=== PATIENT | male | born 1970 | race Caucasian/White ===

== ENCOUNTER 2016-07-21 06:08 | Day surgery (SDC) | payer BC ==
[2016-07-18 15:10] VITALS: BMI 35.5
[2016-07-21] MEDS ORDERED: SODIUM CHLORIDE 0.9% 500 ML IV ONE (06:22)
[2016-07-21 06:29] VITALS: RESP 16; TEMP 98.4
[2016-07-21] MEDS ORDERED: MIDAZOLAM 2 MG/2 ML VIAL ONE ×2 (07:03→07:48)
[2016-07-21] MEDS ORDERED: fentaNYL (PF) 50 MCG/ML 2 ML AMP ONE (07:03)
[2016-07-21] MEDS: BENZOCAINE SPRAY 100 APPLIC/CAN MUCOUS MEM ONE ×2 (07:42→07:43)
[2016-07-21] MEDS: fentaNYL (PF) 50 MCG/ML 2 ML AMP IV ONE ×2 (07:42→07:45)
[2016-07-21] MEDS ORDERED: MIDAZOLAM 2 MG/2 ML VIAL IV ONE ×2 (07:42→07:50)
[2016-07-21] MEDS: MIDAZOLAM 2 MG/2 ML VIAL IV ONE ×2 (07:44→07:46)
[2016-07-21] MEDS ORDERED: HEPARIN SODIUM 1,000 UNIT/ML VIAL ONE (07:50)
[2016-07-21] MEDS ORDERED: PROPOFOL 10 MG/ML 20 ML VIAL IV ONE (08:01)
--- NOTE | 2016-07-21 08:49 | ECHOT ---
DATE OF SERVICE: 07/21/2016 PERFORMING PHYSICIAN: Eric Mullins MD, accounting administrator. PROCEDURE PERFORMED: Transesophageal echocardiogram. INDICATION: This is a pleasant 45-year-old gentleman who underwent an echocardiogram in the office which showed bicuspid aortic valve with evidence of moderate aortic insufficiency. The transesophageal echocardiogram is for further clarification. SEDATION: Initially we tried conscious sedation using 5 mg of Versed and 75 mcg of fentanyl, but the patient did not respond so we had to call anesthesia and do deep sedation using propofol. COMPLICATIONS: None. LEVEL OF SEDATION: Moderate. PROCEDURE DESCRIPTION: After obtaining an informed consent, the patient was brought to the transesophageal echocardiogram suite. He was turned into left lateral position. Pulse oximetry and heart rate monitors were attached to the patient. Subsequently, we tried sedating the patient using conscious sedation with Versed as described above but he did not respond well. At that point, we decided to call Anesthesia and do deep sedation. In this case, the patient was given propofol and sedated using propofol. Subsequently, I did advance the transesophageal echocardiogram probe through to the mid esophagus where 2-D echocardiogram images as well as color Doppler images of various cardiac structures were obtained. Particular attention was made to be aortic valve. The procedure was completed without any completion. FINDINGS: The left ventricular dimension and systolic function appeared to be within normal limits. The ejection fraction seems to be in the range of 50% to 55% with a normal wall motion. The right ventricle is of normal size and function. The left atrium appeared to be within normal limits of dimension. The left atrial appendage appeared to be free from any thrombus. The interatrial septum was interrogated using color flow Doppler as well as contrast study. The septum seems to be intact without any evidence of shunt. The aortic valve is bicuspid aortic valve with evidence of ( ) of the right and left coronary cusp and evidence of severe aortic insufficiency with eccentric jet. The mitral valve seems to be structurally normal with trace MR. Normal tricuspid valve and pulmonic valve. CONCLUSION: 1. Bicuspid aortic valve with fusion of right and left coronary cusp and evidence of severe aortic insufficiency. 2. Preserved left ventricular dimension and systolic function with an ejection fraction of 60% and normal wall motion. 3. Overall normal cardiac chamber sizes. 4. Normal mitral valve with trace mitral regurgitation. 5. Normal tricuspid valve and pulmonic valve. 6. Normal left atrial appendage without any evidence of thrombus. 7. Intact interatrial septum without evidence of shunt. 8. Normal aortic root dimension. 9. No evidence of pericardial effusion.
[2016-07-21 09:35] VITALS: BP 140/66; PULSE 60
== END 2016-07-21 09:35 | disposition home or self-care (01) ==
LOC: CATHCVL 06:08
PROVIDERS: ATTEND Internal Medicine Interventional Cardiology
DX: Q23.1 Congenital insufficiency of aortic valve (principal); I34.0 Nonrheumatic mitral (valve) insufficiency; E78.1 Pure hyperglyceridemia; E78.5 Hyperlipidemia, unspecified; R07.89 Other chest pain; F17.210 Nicotine dependence, cigarettes, uncomplicated; Z79.891 Long term (current) use of opiate analgesic; Z79.899 Other long term (current) drug therapy; Z88.5 Allergy status to narcotic agent; Z88.7 Allergy status to serum and vaccine; Z82.49 Family history of ischemic heart disease and other diseases of the circulatory system
CPT/HCPCS: 93312; 93320; 93325; J2250; J3010; J2704; 99152

== ENCOUNTER → 2016-08-19 | Outpatient (CLI) | payer BC ==
--- NOTE | 2016-08-19 19:33 | MR ---
EXAMINATION TYPE: MR cervical spine wo con DATE OF EXAM: 08/19/2016 2:48 PM COMPARISON: 08/26/2014 HISTORY: 45-year-old male with cervical spondylosis, headaches, numbness/weakness upper extremities, history of surgery 2014. TECHNIQUE: Multiplanar, multisequence images of the cervical spine were acquired. FINDINGS: No craniocervical junction abnormality, predental space widening, or prevertebral soft tissue swellin g. Chronic bony deformity of the dens as compared to 08/26/2014. There is excessive metal hardware artifact at the C5-C6 level obscuring the vertebral bodies and with artifact extending into the spinal canal limiting evaluation of the cord at this level. There is roosevelt e dorsal CSF signal maintained arguing against a significant spinal canal stenosis here. However, ass essment remains markedly limited at this level. There is mild bilateral facet and uncovertebral joint at C6/C7 mildly narrowing the bilateral neurofo ramina similar to prior exam. Alignment is maintained. Scattered additional mild facet degenerative change without significant spinal canal and neural juan c inal stenosis seen. There are excessive artifacts projecting over the cord on the sagittal view limiting evaluation for c ord signal abnormality. No suspicious bone marrow replacement within the visualized segments. IMPRESSION: 1. Excessive metal hardware artifact at C5-C6 limiting assessment of the vertebral bodies, disc inter space, and spinal canal at this level. Some dorsal CSF signal is seen here arguing against a signific ant spinal canal stenosis. The cord itself is not assessed at this level. 2. Scattered mild facet arthropathy. Additional uncovertebral joint arthropathy at C6-C7 causing mild bilateral neuroforaminal stenoses, similar to prior. 3. Prominent artifacts projecting over the remainder of the cord on the sagittal series.
== END | disposition home or self-care (01) ==
LOC: RADMRIMAIN 14:18
DX: M99.71 Connective tissue and disc stenosis of intervertebral foramina of cervical region (principal); M46.92 Unspecified inflammatory spondylopathy, cervical region
CPT/HCPCS: 72141

== ENCOUNTER 2016-08-31 10:59 | Day surgery (SDC) | payer BC ==
[2016-08-28 12:01] VITALS: BMI 35.5
[~2016-08-31 10:59] MED LIST: ALPRAZolam 0.25 MG TAB PO PRN; ALPRAZolam 0.5 MG TAB PO PRN; ASPIRIN 325 MG TAB PO STA; ATORVASTATIN 80 MG TAB PO STA; NITROGLYCERIN SL TABS 0.4 MG TAB SUBLINGUAL PRN; SODIUM CHLORIDE 0.9% 1,000 ML in EMPTY BAG 1 BAG IV ONE
[2016-08-31 12:04] VITALS: RESP 18
[2016-08-31 12:08] LABS: Basophils # (A) 0.1 k/uL (0-0.2); Basophils % (A) 1 %; CH 30.1; CHCM 34.1; Eosinophils # (A) 0.3 k/uL (0-0.7); Eosinophils % (A) 3 %; HCT 44.5 % (39.0-53.0); HDW 2.56; HGB 14.7 gm/dL (13.0-17.5); Luc % (Auto) 2; Lymphocytes % (A) 19 %; MCH 29.1 pg (25.0-35.0); MCV 88.4 fL (80.0-100.0); Mean Platelet Volume 8.2; Monocytes # (A) 0.5 k/uL (0-1.0); Monocytes % (A) 5 %; Neutrophils # (A) 7.1 k/uL (1.3-7.7); Neutrophils % (A) 70 %; RBC 5.04 m/uL (4.30-5.90); RDW 13.7 % (11.5-15.5); WBC 10.1 k/uL (3.8-10.6); WBC (Perox) 10.25
[2016-08-31] MEDS ORDERED: LIDOCAINE 2% INJ 20 MG/ML (20 ML MDV) ONE (12:14)
[2016-08-31] MEDS ORDERED: SODIUM CHLORIDE 0.9% (PF) 10 ML VIAL ONE (12:14)
[2016-08-31] MEDS ORDERED: VERAPAMIL 2.5 MG/ML 2 ML AMP ONE (12:14)
[2016-08-31] MEDS ORDERED: HEPARIN SODIUM 1,000 UNIT/ML VIAL ONE (12:14)
[2016-08-31] MEDS ORDERED: MIDAZOLAM 2 MG/2 ML VIAL ONE (12:15)
[2016-08-31 12:17] LABS: Anion Gap 11 mmol/L; Blood Urea Nitrogen 16 mg/dL (9-20); Calcium 9.5 mg/dL (8.4-10.2); Carbon Dioxide 21 mmol/L (22-30); Chloride 110 mmol/L (98-107); Glucose 116 mg/dL (74-99); Non-African American GFR(MDRD) >60 (>60 ml/min/1.73 sqM); Potassium 5.2 mmol/L (3.5-5.1); Sodium 142 mmol/L (137-145)
[2016-08-31] MEDS ORDERED: MIDAZOLAM 2 MG/2 ML VIAL IVP ONE (12:28)
[2016-08-31] MEDS ORDERED: LIDOCAINE 2% INJ 20 MG/ML SQ ONE ×2 (12:32)
[2016-08-31] MEDS ORDERED: VERAPAMIL SYRINGE (5 MG/10 ML) INTRAARTER ONE ×2 (12:33→12:43)
[2016-08-31] MEDS ORDERED: fentaNYL (PF) 50 MCG/ML 2 ML AMP ONE (12:35)
[2016-08-31] MEDS ORDERED: fentaNYL (PF) 50 MCG/ML 2 ML AMP IV ONE ×2 (12:37→12:39)
[2016-08-31] MEDS ORDERED: IOHEXOL 350 MG/ML 100 ML BOTTLE INJ ONE (12:45)
[2016-08-31] MEDS ORDERED: RX INFO: IV CONTRAST WAS GIVEN 1 EACH MISC MISCELLANE PRN (12:51)
[2016-08-31] MEDS ORDERED: SODIUM CHLORIDE 0.9% 1,000 ML IV SCH (13:00)
[2016-08-31 17:37] VITALS: BP 131/66; PULSE 56; TEMP 98.2
--- NOTE | 2016-08-31 21:35 | CC ---
DATE OF SERVICE: August 31, 2016. PERFORMING PHYSICIAN: Eric Mullins M.D., radio communications superintendent. PROCEDURES PERFORMED: 1. Selective right and left coronary angiogram. 2. Aortic root angiogram. INDICATION: This is a pleasant 46-year-old gentleman who is known to have severe aortic regurgitation, who is going to have aortic valve replacement in the next few weeks. The heart catheterization is to rule out any severe underlying coronary artery disease. APPROACH: Right radial artery. COMPLICATIONS: None. LEVEL OF SEDATION: Moderate. PROCEDURE DESCRIPTION: After obtaining an informed consent, the patient was brought to the cardiac minilab operator. His right radial artery was cannulated using micropuncture technique. The micropuncture wire passed easily, then I placed 6 [place] sheath in the right radial artery. Subsequently I gave the patient 2 mg of verapamil IA and 3000 units of heparin IV. Then I did selective right and left coronary angiogram using JR4 and JL4 catheters. Then I did aortic root angiogram using 5 [place] pigtail catheter. The procedure was completed without any complication. SELECTIVE CORONARY ANGIOGRAM: 1. The RCA is a large-caliber vessel and it is a dominant vessel. The proximal RCA has disease, appeared to be in the range of 30%. The mid RCA appeared to be angiographically normal and the RCA distally is angiographically normal and bifurcates into PDA and PLV branches. Both are angiographically normal. 2. The left main is a short left main and angiographically normal. It bifurcates into the left circumflex and left anterior descending artery. 3. Left circumflex is a large-caliber vessel and is a nondominant vessel. The proximal circ appears to have mild disease only. The mid circ appears to have mild disease only and gives rise to the large OM branch, which seems to be angiographically normal. The left circumflex distally is angiographically normal. 4. Left anterior descending artery. The proximal LAD appeared to have mild disease only. It gives rise into the first diagonal branch, which appeared to be a large-caliber vessel with disease in the proximal portion about 30% to 40%. The mid LAD appeared to be angiographically normal as well. The LAD distally is angiographically normal. 5. Aortic root angiogram: The aortic root angiogram was performed in the PATEL projection and using a power injection. There was 4+ aortic regurgitation identified. CONCLUSION: 1. Intermediate nonobstructive coronary artery disease involving the proximal right coronary artery and first diagonal branch of the left anterior descending artery. 2. 4+ aortic insufficiency. Postprocedure management: POSTPROCEDURE MANAGEMENT: Proceeding with aortic valve replacement without the need for coronary artery bypass grafting.
--- NOTE | 2016-08-31 21:37 | LTR ---
August 31, 2016 RE: Trevor Bolanos Dear Matthew: Mr. Trevor Kahn underwent a heart catheterization which showed mild nonobstructive coronary artery disease. I want to thank you for allowing me to participate in his care and please do not hesitate to call if you have any questions or concerns. Sincerely, GINO MEJIAS MD
== END 2016-08-31 17:30 | disposition home or self-care (01) ==
LOC: CATHCVL 10:59
PROVIDERS: ATTEND Internal Medicine Interventional Cardiology
DX: I25.10 Atherosclerotic heart disease of native coronary artery without angina pectoris (principal); I35.1 Nonrheumatic aortic (valve) insufficiency; E78.5 Hyperlipidemia, unspecified; E78.1 Pure hyperglyceridemia; E78.00 Pure hypercholesterolemia, unspecified; I10 Essential (primary) hypertension; Z79.891 Long term (current) use of opiate analgesic; Z79.899 Other long term (current) drug therapy; Z88.5 Allergy status to narcotic agent; Z88.7 Allergy status to serum and vaccine; F17.210 Nicotine dependence, cigarettes, uncomplicated; Z82.49 Family history of ischemic heart disease and other diseases of the circulatory system
CPT/HCPCS: 99152; 93458; 93567; 80048; 85025; C1894; C1769; J2001; J2250; Q9967; J3010; J1644

== ENCOUNTER → 2016-09-01 | Outpatient (CLI) | payer BC ==
--- NOTE | 2016-09-01 12:59 | XR ---
EXAMINATION TYPE: XR cervical spine w flex/ext DATE OF EXAM ORDERED: 09/01/2016 12:33 PM HISTORY: M47.812 Cervical spondylosis. COMPARISON: Previous study dated 07/19/2015. FINDINGS: There are disc spacers at C5-6. There is very subtle motion at this level in flexion and e xtension. Total motion in the AP direction is 5 mm. Alignment is otherwise normal. Atlantoaxial relat ionships are normal. IMPRESSION: SUBTLE MOVEMENT IN FLEXION AND EXTENSION AT THE C5-6 LEVEL.
== END | disposition home or self-care (01) ==
LOC: RADXRMAIN 12:08
DX: M47.812 Spondylosis without myelopathy or radiculopathy, cervical region (principal)
CPT/HCPCS: 72052

== ENCOUNTER → 2016-09-26 | Outpatient (CLI) | payer BC ==
[2016-09-26 09:06] LABS: EKG EKG PERFORMED
[2016-09-26 10:08] LABS: Partial Thromboplastin Time 25.6 sec (22.0-30.0); Prothrombin Time 10.1 sec (9.0-12.0)
[2016-09-26 10:23] LABS: Appearance,Urine Clear (Clear); Bilirubin,Urine Negative (Negative); Glucose,Urine (UA) Negative (Negative); Ketones,Urine Negative (Negative); Leukocyte Esterase,Urine Negative (Negative); Nitrite,Urine Negative (Negative); PH, Urine 6.5 (5.0-8.0); Protein,Urine Negative (Negative); Specific Gravity,Urine 1.018 (1.001-1.035); UA Billing (MACRO vs. MICRO) CHEM; Urobilinogen,Urine <2.0 mg/dL (<2.0)
[2016-09-26 10:25] LABS: CH 29.8; CHCM 33.6; HCT 42.4 % (39.0-53.0); HDW 2.77; HGB 14.3 gm/dL (13.0-17.5); MCH 30.1 pg (25.0-35.0); MCHC 33.7 g/dL (31.0-37.0); MCV 89.1 fL (80.0-100.0); Mean Platelet Volume 8.3; RBC 4.76 m/uL (4.30-5.90); RDW 13.8 % (11.5-15.5); WBC 8.6 k/uL (3.8-10.6)
[2016-09-26 10:48] LABS: ALT 34 U/L (21-72); AST 23 U/L (17-59); Alkaline Phosphatase 105 U/L (38-126); Anion Gap 11 mmol/L; Blood Urea Nitrogen 18 mg/dL (9-20); Calcium 9.7 mg/dL (8.4-10.2); Carbon Dioxide 25 mmol/L (22-30); Chloride 107 mmol/L (98-107); Cholesterol 226 mg/dL (<200); Glucose 101 mg/dL (74-99); HDL Cholesterol 34 mg/dL (40-60); Non-African American GFR(MDRD) >60 (>60 ml/min/1.73 sqM); Potassium 4.6 mmol/L (3.5-5.1); Sodium 143 mmol/L (137-145); Total Bilirubin 0.4 mg/dL (0.2-1.3); Total Protein 7.1 g/dL (6.3-8.2)
[2016-09-26 11:12] LABS: Hepatitis B Surface Ag Index 0.05
[2016-09-26 11:18] LABS: Hepatitis B Core IgM Index 0.04
[2016-09-26 11:29] LABS: Hepatitis C Virus IgG Index 0.01
[2016-09-26 12:08] LABS: Hepatitis C Virus IgG Ab Negative (Negative)
[2016-09-26 12:09] LABS: Triglycerides 762 mg/dL (<150)
[2016-09-26 12:18] LABS: Hemoglobin A1C 6.3 % (4.2-6.1)
--- NOTE | 2016-09-26 13:50 | XR ---
EXAMINATION TYPE: XR chest 2V DATE OF EXAM: 09/26/2016 12:56 PM COMPARISON: NONE INDICATION: Presurgical clearance TECHNIQUE: Single frontal view of the chest is obtained. FINDINGS: The heart size is normal. The pulmonary vasculature is normal. The lungs are clear. IMPRESSION: 1. No acute pulmonary process.
--- NOTE | 2016-09-26 15:40 | US ---
EXAMINATION TYPE: US carotid duplex BILAT DATE OF EXAM: 09/26/2016 11:33 AM COMPARISON: NONE CLINICAL HISTORY: OPEN HEART. EXAM MEASUREMENTS: RIGHT: Peak Systolic Velocity (PSV) cm/sec ----- Right CCA: 118.9 ----- Right ICA: 98.2 ----- Right ECA: 169.4 ICA/CCA ratio: 0.8 RIGHT: End Diastole cm/sec ----- Right CCA: 15.5 ----- Right ICA: 23.2 ----- Right ECA: 9.1 LEFT: Peak Systolic Velocity (PSV) cm/sec ----- Left CCA: 106.9 ----- Left ICA: 68.8 ----- Left ECA: 94.1 ICA/CCA ratio: 0.6 LEFT: End Diastole cm/sec ----- Left CCA: 12.4 ----- Left ICA: 18.2 ----- Left ECA: 12.8 VERTEBRALS (direction of flow): Right Vertebral: Antegrade Left Vertebral: Antegrade No significant stenosis. Elevated right prox CCA and right ECA. Elevated left prox CCA. Bilateral wall thickening. IMPRESSION: 1. I DO NOT SEE EVIDENCE OF A HEMODYNAMICALLY SIGNIFICANT STENOSIS IN EITHER COMMON OR INTERNAL CAROT ID ARTERY. 2. ELEVATED FLOW VELOCITIES, RIGHT ECA. Criteria for Assigning % of Stenosis / Diameter reduction (Estimation based on the indirect measurements of the internal carotid artery velocities (ICA PSV). 1. Normal (no stenosis)=ICA PSV < 125 cm/s: ratio < 2.0: ICA EDV<40 cm/s. 2. Less than 50% stenosis=ICA PSV < 125 cm/s: ratio < 2.0: ICA EDV<40 cm/s. 3. 50 to 69% stenosis=ICA PSV of 125 to 230 cm/s: ration 2.0 ? 4.0: ICA EDV 40-100 cm/s. 4. Greater than 70% stenosis to near occlusion= ICA PSV > 230 cm/s: ratio > 4.0: ICA EDV > 100 cm/s. 5. Near occlusion= ICA PSV velocities may be low or undetectable: variable ratio and ICA EDV. 6. Total occlusion=unable to detect flow.
--- NOTE | 2016-10-04 12:58 | P.ARTDOP ---
Arterial Doppler LOWER EXTREMITY ARTERIAL DOPPLER: DATE OF SERVICE: 09/26/2016 Reason for study: Preop open heart. Doppler waveforms: Multiphasic bilaterally throughout. Pulse volume recording: []. Pressure gradients: None. Ankle-brachial indices: Greater than 1 bilaterally. Toe pressures: [] on the right, [] on the left Impression: Normal study.
--- NOTE | 2016-10-04 13:02 | P.VSCSTY ---
Greater Saphenous Vein Mapping This is bilateral lower extremity greater saphenous vein mapping. Date of service 09/26/2016 Vein quality and ultrasound appearance normal. Vein size groin right 6.3 x 7.3 groin left 7.4 x 6.6 High thigh right 4.0 x 4.1 high thigh left 4.7 x 5.9 Mid thigh right 3.6 x 4.9 mid thigh left 4.5 x 4.8 Above-knee right 3.0 x 4.4 above- knee left 3.4 x 3.7 Below knee right 4.0 x 4.9 below-knee left 2.7 x 2.8 Mid calf right 2.6 x 3.3 mid calf left 2.6 x 3.3 Ankle right 2.6 x 4.2 ankle left 2.9 x 4.8 Impression usable bilateral greater saphenous vein.
== END | disposition home or self-care (01) ==
LOC: LABPAT 07:26
PROVIDERS: ATTEND Thoracic Surgery (Cardiothoracic Vascular Surgery)
DX: Z01.810 Encounter for preprocedural cardiovascular examination (principal)
CPT/HCPCS: 36415; 71020; 80053; 80061; 80074; 81003; 83036; 83735; 83880; 84443; 84484; 85027; 85610; 85730; 86850; 86900; 86901; 86920; 87070; 87086; 93005; 93880; 93922; 93970; 94150

== ENCOUNTER 2016-10-04 07:28 | Inpatient (IN) | payer BC ==
[2016-09-26 11:45] VITALS: BMI 35.5
[~2016-10-04 07:28] MED LIST changes: +ALBUMIN HUMAN 25% 50 ML IV ONE; +ALBUMIN HUMAN 5% 500 ML IVPB ONE; -ALPRAZolam 0.25 MG TAB PO PRN; -ALPRAZolam 0.5 MG TAB PO PRN; +AMINOCAPROIC ACID 250 MG/ML 20 ML VIAL IV ONE; +AMINOCAPROIC ACID 5,000 MG in DEXTROSE 5% IN WATER 50 ML IV ONE; +ASPIRIN 325 MG TAB PO ONE; -ASPIRIN 325 MG TAB PO STA; +ATORVASTATIN 10 MG TAB PO ONE; -ATORVASTATIN 80 MG TAB PO STA; +CALCIUM CHLORIDE 100 MG/ML 10 ML SYRINGE IV ONE; +CHLORHEXIDINE GLUCONATE 15 ML CUP MUCOUS MEM ONE; +CLEVIDIPINE BUTYRATE 25 MG in EMPTY BAG 1 BAG IV ONE; +DEXTROSE 5% IN WATER 1,000 ML with POTASSIUM CHLORIDE 110 MEQ, MAGNESIUM SULFATE 16 MEQ... IV ONE; +DEXTROSE 5% IN WATER 1,000 ML with POTASSIUM CHLORIDE 25 MEQ, SODIUM CHLORIDE 4MEQ/ML V... IV ONE; +HEPARIN SODIUM 1,000 UNIT/ML VIAL IV ONE; +HEPARIN SODIUM,PORCINE 5,000 UNIT in SODIUM CHLORIDE 0.9% 500 ML IV ONE; +INSULIN REGULAR 100 UNIT in SODIUM CHLORIDE 0.9% 100 ML IV ONE; +LACTATED RINGERS 1,000 ML IV ONE; +MAGNESIUM SULFATE MG 500 MG/ML VIAL IV ONE; +MANNITOL 25% 12.5 GM/50 ML VIAL IV ONE; +METOPROLOL TARTRATE 12.5 MG TAB PO ONE; +MUPIROCIN 2% OINT 22 GM TUBE NASAL ONE; -NITROGLYCERIN SL TABS 0.4 MG TAB SUBLINGUAL PRN; +NITROGLYCERIN-D5W PMX 25 MG/250 ML BTL IV ONE; +NITROGLYCERIN-D5W PMX 50 MG in DEXTROSE/WATER 1 250ML.BAG IV ONE; +NOREPINEPHRINE 4 MG in SODIUM CHLORIDE 0.9% 250 ML IV ONE; +PHENYLEPHRINE 40 MG in SODIUM CHLORIDE 0.9% 250 ML IV ONE; +PHENYLEPHRINE-0.9% NACL SYG 1 MG/10 ML SYRINGE IV ONE; +PROPOFOL 50 ML IV ONE; +PROTAMINE SULFATE 10 MG/ML 25 ML VIAL IV ONE; +PROTAMINE SULFATE 250 MG in EMPTY BAG 1 BAG IV ONE; +SODIUM BICARB 8.4% 50 ML SYR (1 MEQ/ML) IV ONE; +SODIUM CHLORIDE 0.9% 1,000 ML IV ONE; -SODIUM CHLORIDE 0.9% 1,000 ML in EMPTY BAG 1 BAG IV ONE; +SODIUM CHLORIDE 0.9% IRRIGATIO 1,000 ML IRRIGATION ONE; +ceFAZolin 2,000 MG in SODIUM CHLORIDE 0.9% 30 ML IVPB ONE
[2016-10-04] MEDS ORDERED: fentaNYL (PF) 50 MCG/ML 2 ML AMP ONE (11:13)
[2016-10-04] MEDS ORDERED: HEPARIN SODIUM,PORCINE 10,000 UNIT/ML 1 ML VIAL ONE (11:13)
[2016-10-04] MEDS ORDERED: SUCCINYLCHOLINE CHLORIDE 100 MG/5 ML SYR IV ONE (11:13)
[2016-10-04] MEDS ORDERED: MAGNESIUM SULFATE 4 MEQ/ML 2 ML VIAL ONE (11:13)
[2016-10-04] MEDS ORDERED: SUFentanil 50 MCG/ML 2ML AMP ONE (11:13)
[2016-10-04] MEDS ORDERED: SODIUM CHLORIDE 0.9% IRRIG 1,000 ML BTL IRRIGATION ONE (11:13)
[2016-10-04] MEDS ORDERED: MIDAZOLAM 2 MG/2 ML VIAL ONE (11:13)
[2016-10-04] MEDS ORDERED: fentaNYL (PF) 50 MCG/ML 50 ML VIAL ONE (11:13)
[2016-10-04] MEDS ORDERED: ELECTROLYTE-R (PH 7.4) 1,000 ML IV.SOLN IV ONE (11:13)
[2016-10-04] MEDS ORDERED: VECURONIUM 10 MG VIAL IV ONE (11:13)
[2016-10-04] MEDS ORDERED: LIDOCAINE 2% SYG (PF) 100 MG/5 ML ONE (11:13)
[2016-10-04] MEDS ORDERED: HEPARIN SODIUM,PORCINE 5,000 UNIT/ML 1 ML VIAL ONE (11:13)
[2016-10-04] MEDS ORDERED: PROPOFOL 10 MG/ML 20 ML VIAL IV ONE (11:13)
[2016-10-04 11:49] LABS: Glucose,Whole Blood 81 mg/dL (75-99)
[2016-10-04 12:40] LABS: Glucose,Whole Blood 91 mg/dL (75-99)
[2016-10-04 13:05] LABS: Glucose,Whole Blood 170 mg/dL (75-99)
[2016-10-04 13:28] LABS: Glucose,Whole Blood 134 mg/dL (75-99)
[2016-10-04 13:53] LABS: Glucose,Whole Blood 149 mg/dL (75-99)
[2016-10-04 14:37] LABS: Glucose,Whole Blood 130 mg/dL (75-99)
[2016-10-04 15:03] LABS: Glucose,Whole Blood 122 mg/dL (75-99)
[2016-10-04] MEDS ORDERED: METOCLOPRAMIDE 5 MG/ML 2 ML VIAL IVP PRN (15:43)
[2016-10-04] MEDS ORDERED: Potassium Replacement Protocol 1 EACH MISC MISCELLANE PRN (15:43)
[2016-10-04] MEDS ORDERED: BENZOCAINE/MENTHOL LOZENG 1 EACH LOZENGE MUCOUS MEM PRN (15:43)
[2016-10-04] MEDS ORDERED: ONDANSETRON 4 MG/2 ML VIAL IVP PRN (15:43)
[2016-10-04] MEDS ORDERED: ALBUMIN HUMAN 5% 250 ML in EMPTY BAG 1 BAG IVPB PRN (15:43)
[2016-10-04] MEDS ORDERED: CALCIUM GLUCONATE 2,000 MG in SODIUM CHLORIDE 0.9% 100 ML IVPB PRN (15:43)
[2016-10-04] MEDS ORDERED: Magnesium Replacement Protocol 1 EACH MISC MISCELLANE PRN (15:43)
[2016-10-04] MEDS ORDERED: NITROGLYCERIN-D5W PMX 50 MG in DEXTROSE/WATER 1 250ML.BAG IV SCH (15:43)
[2016-10-04] MEDS ORDERED: Phosphorus Replacement Protoco 1 EACH MISC MISCELLANE PRN (15:43)
--- NOTE | 2016-10-04 15:58 | XR ---
EXAMINATION TYPE: XR chest 1V portable DATE OF EXAM: 10/04/2016 3:51 PM Comparison: 09/26/2016 Clinical History: 46 year-old male post Operative Cardiac Surgery Findings: ET tube is satisfactory with tip at the level of the medial clavicular heads. Median sternotomy wires are present with prosthetic aortic valve. Mediastinal drain is present as well as a left-sided chest tube. Right IJ [place] catheter has its tip in the region of the main pulmonary outflow tract. Sug gestion of some retained epicardial pacer leads. Heart is borderline enlarged with cephalization of the pulmonary vasculature. Some patchy left basila r and retrocardiac opacity. Impression: 1. Postsurgical changes. Satisfactory ET tube. 2. Correlate for mild pulmonary vascular congestion. 3. Retrocardiac and left basilar opacity likely postoperative atelectasis.
[2016-10-04] MEDS: CLEVIDIPINE BUTYRATE 25 MG in EMPTY BAG 1 BAG IV SCH ×2 (16:00→23:16)
[2016-10-04 16:04] LABS: Basophils # (A) 0.1 k/uL (0-0.2); Basophils % (A) 1 %; CH 30.2; CHCM 32.9; Eosinophils # (A) 0.4 k/uL (0-0.7); Eosinophils % (A) 3 %; HCT 31.7 % (39.0-53.0); HDW 2.68; Luc # (Auto) 0.11; Luc % (Auto) 1; Lymphocytes # (A) 3.5 k/uL (1.0-4.8); Lymphocytes % (A) 28 %; MCH 29.8 pg (25.0-35.0); MCHC 32.3 g/dL (31.0-37.0); MCV 92.3 fL (80.0-100.0); Mean Platelet Volume 8.5; Monocytes # (A) 0.7 k/uL (0-1.0); Monocytes % (A) 6 %; Neutrophils # (A) 7.6 k/uL (1.3-7.7); Neutrophils % (A) 62 %; RBC 3.44 m/uL (4.30-5.90); RDW 14.5 % (11.5-15.5); WBC 12.3 k/uL (3.8-10.6); WBC (Perox) 12.42
[2016-10-04 16:07] LABS: Glucose,Whole Blood 110 mg/dL (75-99)
[2016-10-04 16:07] LABS: HGB 10.2 gm/dL (13.0-17.5)
[2016-10-04] MEDS: IPRATROPIUM-ALBUTEROL 3 ML NEB INHALATION SCH ×3 (16:09→23:43)
[2016-10-04 16:10] LABS: Ionized Calcium 4.6 mg/dL (4.5-5.3)
[2016-10-04 16:14] LABS: INR 1.2 (<1.1); Partial Thromboplastin Time 29.4 sec (22.0-30.0); Prothrombin Time 12.1 sec (9.0-12.0)
[2016-10-04 16:19] LABS: ALT 38 U/L (21-72); AST 35 U/L (17-59); Alkaline Phosphatase 34 U/L (38-126); Anion Gap 4 mmol/L; Blood Urea Nitrogen 18 mg/dL (9-20); Calcium 7.2 mg/dL (8.4-10.2); Carbon Dioxide 25 mmol/L (22-30); Chloride 111 mmol/L (98-107); Glucose 91 mg/dL (74-99); Magnesium 2.6 mg/dL (1.6-2.3); Non-African American GFR(MDRD) >60 (>60 ml/min/1.73 sqM); Potassium 4.2 mmol/L (3.5-5.1); Sodium 140 mmol/L (137-145); Total Bilirubin 0.3 mg/dL (0.2-1.3); Total Protein 4.1 g/dL (6.3-8.2)
[2016-10-04] MEDS: LACTATED RINGERS 1,000 ML IV SCH (16:49)
[2016-10-04 17:07] LABS: Glucose,Whole Blood 106 mg/dL (75-99)
[2016-10-04 18:40] LABS: Glucose,Whole Blood 130 mg/dL (75-99)
[2016-10-04] MEDS: ceFAZolin 2 GM in SODIUM CHLORIDE 0.9% 100 ML IVPB SCH (18:44)
[2016-10-04] MEDS: ACETAMINOPHEN IV (For NPO) 1,000 MG in EMPTY BAG 1 BAG IVPB SCH (18:44)
[2016-10-04] MEDS: INSULIN REGULAR 100 UNIT in SODIUM CHLORIDE 0.9% 100 ML IV SCH (18:46)
[2016-10-04 18:54] LABS: Basophils # (A) 0.1 k/uL (0-0.2); Basophils % (A) 0 %; CH 29.4; CHCM 32.9; Eosinophils # (A) 0.2 k/uL (0-0.7); Eosinophils % (A) 2 %; HCT 27.8 % (39.0-53.0); HGB 9.6 gm/dL (13.0-17.5); Luc # (Auto) 0.13; Luc % (Auto) 1; Lymphocytes # (A) 1.8 k/uL (1.0-4.8); Lymphocytes % (A) 14 %; MCHC 34.6 g/dL (31.0-37.0); MCV 89.7 fL (80.0-100.0); Mean Platelet Volume 8.2; Monocytes # (A) 0.9 k/uL (0-1.0); Monocytes % (A) 7 %; Neutrophils # (A) 9.6 k/uL (1.3-7.7); Neutrophils % (A) 76 %; RDW 14.1 % (11.5-15.5); WBC 12.7 k/uL (3.8-10.6); WBC (Perox) 12.86
[2016-10-04 19:45] LABS: Glucose,Whole Blood 129 mg/dL (75-99)
[2016-10-04 20:31] LABS: Glucose,Whole Blood 137 mg/dL (75-99)
[2016-10-04 20:43] LABS: ABG PCO2 47 mmHg (35-45); ABG PH 7.32 (7.35-7.45); ABG PO2 68 mmHg (83-108)
[2016-10-04 20:44] LABS: ABG Base Excess -1.7 mmol/L; ABG HCO3 24 mmol/L (21-25); ABG TCO2 25 mmol/L (19-24)
[2016-10-04] MEDS: PROPOFOL 500 MG in EMPTY BAG 1 BAG IV SCH (20:58)
[2016-10-04 21:10] LABS: Glucose,Whole Blood 149 mg/dL (75-99)
[2016-10-04 21:15] LABS: Basophils # (A) 0.1 k/uL (0-0.2); Basophils % (A) 0 %; CH 29.9; CHCM 33.5; Eosinophils # (A) 0.2 k/uL (0-0.7); Eosinophils % (A) 1 %; HCT 38.2 % (39.0-53.0); HDW 2.75; Luc # (Auto) 0.17; Luc % (Auto) 1; Lymphocytes # (A) 1.5 k/uL (1.0-4.8); Lymphocytes % (A) 8 %; MCH 29.8 pg (25.0-35.0); MCHC 33.1 g/dL (31.0-37.0); MCV 89.9 fL (80.0-100.0); Mean Platelet Volume 8.1; Monocytes # (A) 1.2 k/uL (0-1.0); Monocytes % (A) 6 %; Neutrophils # (A) 15.1 k/uL (1.3-7.7); Neutrophils % (A) 83 %; RBC 4.24 m/uL (4.30-5.90); RDW 14.5 % (11.5-15.5); WBC 18.2 k/uL (3.8-10.6); WBC (Perox) 18.58
[2016-10-04 21:20] LABS: Ionized Calcium 4.7 mg/dL (4.5-5.3)
[2016-10-04 21:21] LABS: HGB 12.6 gm/dL (13.0-17.5)
[2016-10-04 21:31] LABS: Anion Gap 4 mmol/L; Blood Urea Nitrogen 19 mg/dL (9-20); Carbon Dioxide 23 mmol/L (22-30); Chloride 111 mmol/L (98-107); Glucose 146 mg/dL (74-99); Magnesium 2.3 mg/dL (1.6-2.3); Non-African American GFR(MDRD) >60 (>60 ml/min/1.73 sqM); Phosphorous 2.5 mg/dL (2.5-4.5); Potassium 4.3 mmol/L (3.5-5.1); Sodium 138 mmol/L (137-145)
[2016-10-04 22:16] LABS: Glucose,Whole Blood 154 mg/dL (75-99)
[2016-10-04 23:08] LABS: Glucose,Whole Blood 141 mg/dL (75-99)
[2016-10-04] MEDS: HYDROmorphone 1 MG/ML 1 ML SYRINGE IVP PRN (23:21)
[2016-10-05] MEDS: PROPOFOL 500 MG in EMPTY BAG 1 BAG IV SCH ×4 (00:10→06:25)
[2016-10-05 00:11] LABS: Glucose,Whole Blood 152 mg/dL (75-99)
[2016-10-05] MEDS: CLEVIDIPINE BUTYRATE 25 MG in EMPTY BAG 1 BAG IV SCH ×15 (00:28→23:41)
[2016-10-05] MEDS: HEPARIN SODIUM,PORCINE 5,000 UNIT/ML 1 ML VIAL SQ SCH ×3 (00:44→16:33)
[2016-10-05] MEDS: ACETAMINOPHEN IV (For NPO) 1,000 MG in EMPTY BAG 1 BAG IVPB SCH ×4 (00:44→17:03)
[2016-10-05 01:12] LABS: Glucose,Whole Blood 134 mg/dL (75-99)
[2016-10-05 02:10] LABS: Glucose,Whole Blood 126 mg/dL (75-99)
[2016-10-05 03:10] LABS: Glucose,Whole Blood 138 mg/dL (75-99)
[2016-10-05] MEDS: IPRATROPIUM-ALBUTEROL 3 ML NEB INHALATION SCH ×2 (03:29→07:18)
[2016-10-05] MEDS: HYDROmorphone 1 MG/ML 1 ML SYRINGE IVP PRN ×6 (03:30→13:56)
[2016-10-05] MEDS: ceFAZolin 2 GM in SODIUM CHLORIDE 0.9% 100 ML IVPB SCH ×2 (03:55→11:46)
[2016-10-05 04:23] LABS: Glucose,Whole Blood 148 mg/dL (75-99)
[2016-10-05 04:41] LABS: Basophils % (A) 0 %; CH 29.6; CHCM 33.6; Eosinophils # (A) 0.1 k/uL (0-0.7); Eosinophils % (A) 0 %; HCT 37.3 % (39.0-53.0); HDW 2.85; Luc # (Auto) 0.14; Luc % (Auto) 1; Lymphocytes # (A) 1.3 k/uL (1.0-4.8); Lymphocytes % (A) 9 %; MCV 88.4 fL (80.0-100.0); Monocytes # (A) 1.2 k/uL (0-1.0); Monocytes % (A) 7 %; Neutrophils # (A) 12.9 k/uL (1.3-7.7); Neutrophils % (A) 83 %; RBC 4.22 m/uL (4.30-5.90); WBC 15.6 k/uL (3.8-10.6); WBC (Perox) 15.76
[2016-10-05 04:49] LABS: HGB 12.6 gm/dL (13.0-17.5); MCH 29.6 pg (25.0-35.0); MCHC 33.6 g/dL (31.0-37.0)
[2016-10-05 04:52] LABS: Ionized Calcium 4.6 mg/dL (4.5-5.3)
[2016-10-05 05:01] LABS: Anion Gap 7 mmol/L; Calcium 7.9 mg/dL (8.4-10.2); Carbon Dioxide 22 mmol/L (22-30); Chloride 110 mmol/L (98-107); Glucose 140 mg/dL (74-99); Non-African American GFR(MDRD) >60 (>60 ml/min/1.73 sqM); Sodium 139 mmol/L (137-145); Total Bilirubin 0.6 mg/dL (0.2-1.3); Total Protein 5.7 g/dL (6.3-8.2)
[2016-10-05 05:02] LABS: ALT 42 U/L (21-72); AST 57 U/L (17-59); Alkaline Phosphatase 41 U/L (38-126); Blood Urea Nitrogen 16 mg/dL (9-20); Magnesium 1.8 mg/dL (1.6-2.3); Potassium 4.3 mmol/L (3.5-5.1)
[2016-10-05 05:03] LABS: INR 1.1 (<1.1); Prothrombin Time 10.9 sec (9.0-12.0)
[2016-10-05] MEDS ORDERED: DEXTROSE ONE (05:21)
[2016-10-05] MEDS ORDERED: WATER ONE (05:21)
[2016-10-05 05:35] LABS: Glucose,Whole Blood 150 mg/dL (75-99)
[2016-10-05 06:04] LABS: Glucose,Whole Blood 143 mg/dL (75-99)
[2016-10-05] MEDS ORDERED: METOPROLOL TARTRATE 12.5 MG TAB PO STA (06:24)
[2016-10-05 07:07] LABS: Glucose,Whole Blood 133 mg/dL (75-99)
--- NOTE | 2016-10-05 07:11 | XR ---
EXAMINATION TYPE: XR chest 1V portable DATE OF EXAM: 10/05/2016 6:51 AM COMPARISON: 10/04/2016 HISTORY: SOB, Follow Up FINDINGS: Indwelling tubes and catheters are unchanged. No evidence for pneumothorax. No change in left basilar opacities. Stable appearance of the cardio-mediastinal structures at this time. Pleural effusion unchanged. IMPRESSION: 1. Stable portable chest. Clinical correlation and follow up until resolution is recommended.
[2016-10-05] MEDS ORDERED: FUROSEMIDE 10 MG/ML 4 ML VIAL IV STA (07:13)
[2016-10-05] MEDS ORDERED: KETOROLAC 30 MG/ML 1 ML VIAL IVP STA (07:14)
[2016-10-05] MEDS: SERTRALINE 100 MG TAB PO SCH (07:51)
[2016-10-05] MEDS: ASPIRIN 325 MG TAB PO SCH (07:51)
[2016-10-05] MEDS: ATORVASTATIN 40 MG TAB PO SCH (07:52)
[2016-10-05] MEDS: CLOPIDOGREL 75 MG TAB PO SCH (07:52)
[2016-10-05 08:25] LABS: ABG Base Excess -2.3 mmol/L; ABG HCO3 22 mmol/L (21-25); ABG PCO2 37 mmHg (35-45); ABG PH 7.39 (7.35-7.45); ABG PO2 71 mmHg (83-108); ABG TCO2 23 mmol/L (19-24)
[2016-10-05 08:33] LABS: Glucose,Whole Blood 131 mg/dL (75-99)
[2016-10-05 08:47] LABS: Glucose,Whole Blood 151 mg/dL (75-99)
[2016-10-05] MEDS ORDERED: METOPROLOL TARTRATE 12.5 MG TAB PO SCH (09:00)
[2016-10-05] MEDS ORDERED: PANTOPRAZOLE 40 MG/10 ML VIAL IVP SCH (09:00)
[2016-10-05 10:25] LABS: Glucose,Whole Blood 134 mg/dL (75-99)
[2016-10-05] MEDS: clonazePAM 1 MG TAB PO PRN ×3 (11:05→20:28)
[2016-10-05 11:54] LABS: Glucose,Whole Blood 127 mg/dL (75-99)
[2016-10-05] MEDS ORDERED: KETOROLAC 30 MG/ML 1 ML VIAL IVP SCH (12:00)
[2016-10-05 13:26] LABS: Glucose,Whole Blood 116 mg/dL (75-99)
--- NOTE | 2016-10-05 14:04 | P.CNPUL ---
History of Present Illness Consult date: 10/04/16 Requesting physician: Jay Nichole Reason for consult: other (Status post aortic valve replacement.) Chief complaint: Severe aortic regurgitation, exertional dyspnea and chest discomfort History of present illness: This is a 46-year-old white male whom I saw on consultation yesterday on 2016, hence the date of this service was on 10/04/2016, patient has been seeing Dr. Francisco for aortic regurgitation and dyslipidemia. He was experiencing intermittent episodes of chest discomfort and exertional dyspnea. Echocardiogram demonstrated bicuspid aortic valve with at least moderate aortic insufficiency. KHANG demonstrated bicuspid aortic valve with fusion of the right and left coronary cusp and severe aortic insufficiency. Patient had extreme dyspnea with any activity. Hence he was seen by cardiac surgery on consultation , and yesterday on 10/04/2016 patient underwent aortic valve replacement postoperatively, patient was on mechanical ventilation, and I was asked to see him on consultation. I saw the patient in the ICU after he was transferred from the OR, I adjusted his ventilator settings, and I plan to wean the patient over a period of a few hours. However the patient could not be weaned last night because of relative hypoxemia, and we kept him on mechanical ventilation until today when I saw him on follow-up. 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 Past Psychological History: Anxiety, Bipolar, Depression Smoking Status: Former smoker Past Alcohol Use History: Rare Additional Past Alcohol Use History / Comment(s): 1 PPD-HAS BEEN SMOKING 30 YRS, 1-2 ppd,quit smoking -2016 Past Drug Use History: Marijuana Additional Drug Use History / Comment(s): SMOKES 3 JOINTS DAILY, has medical marijuana card. - Past Family History Mother Family Medical History: No Reported History Medications and Allergies Home Medications Medication Instructions Recorded Confirmed Type HYDROcodone/APAP 7.5-325MG [[place] 1 tab PO TID PRN 09/14/15 10/04/16 History 7.5-325] Omeprazole 40 mg PO DAILY 09/14/15 10/04/16 History clonazePAM [KlonoPIN] 1 mg PO BID PRN 09/14/15 10/04/16 History Propranolol LA [Inderal LA] 80 mg PO DAILY 04/21/16 10/04/16 History Sertraline [Zoloft] 100 mg PO QAM 04/21/16 10/04/16 History Fenofibrate 160 mg PO DAILY 07/18/16 10/04/16 History Divalproex [Depakote] 1,000 mg PO DAILY@1800 08/28/16 10/04/16 History Allergies Allergy/AdvReac Type Severity Reaction Status Date / Time morphine AdvReac aggitation Verified 09/26/16 11:30 Physical Exam Vitals: Vital Signs Temp Pulse Pulse Resp BP Pulse Ox 10/05/16 10:22 93 L 10/05/16 07:30 76 15 95 10/05/16 07:20 79 10/05/16 07:00 82 13 94 L 10/05/16 06:30 78 16 93 L 10/05/16 06:00 85 13 94 L 10/05/16 05:30 82 12 93 L 10/05/16 05:00 78 16 94 L 10/05/16 04:30 83 12 94 L 10/05/16 04:00 80 62 12 94 L 10/05/16 03:45 77 10/05/16 03:31 79 10/05/16 03:30 80 12 95 10/05/16 03:00 79 12 93 L 10/05/16 02:30 77 11 L 93 L 10/05/16 02:00 76 11 L 132/79 93 L 10/05/16 01:30 74 11 L 93 L 10/05/16 01:00 71 11 L 132/79 93 L 10/05/16 00:30 71 12 93 L 10/05/16 00:00 98.3 F 69 62 12 93 L 10/04/16 23:58 67 10/04/16 23:43 68 10/04/16 23:30 68 11 L 93 L 10/04/16 23:05 66 11 L 95 10/04/16 23:00 66 11 L 94 L 10/04/16 22:45 65 12 94 L 10/04/16 22:30 69 12 93 L 10/04/16 22:15 69 12 93 L 10/04/16 22:00 70 14 93 L 10/04/16 21:45 66 88 L 10/04/16 21:30 64 96 10/04/16 21:15 65 94 L 10/04/16 21:00 89 35 H 88 L 10/04/16 20:45 66 88 L 10/04/16 20:30 67 89 L 10/04/16 20:15 68 93 L 10/04/16 20:11 64 10/04/16 20:01 68 10/04/16 20:00 65 62 16 97 10/04/16 19:45 65 97 10/04/16 19:30 64 105/70 98 10/04/16 19:15 63 105/70 97 10/04/16 19:00 61 105/70 98 10/04/16 18:45 65 105/70 97 10/04/16 18:30 70 105/70 97 10/04/16 18:15 63 105/70 98 10/04/16 18:00 62 105/70 96 10/04/16 17:45 61 105/70 97 10/04/16 17:30 61 94 L 10/04/16 17:15 68 92 L 10/04/16 17:00 62 95 10/04/16 16:45 62 95 10/04/16 16:43 96.1 F L 10/04/16 16:30 62 99 10/04/16 16:15 62 100 10/04/16 16:00 62 100 10/04/16 15:45 68 99 10/04/16 15:43 96.1 F L 96 10/04/16 15:30 65 Intake and Output 10/04/16 10/05/16 10/05/16 22:59 06:59 14:59 Intake Total 168.917 4723.639 225.990 Output Total 2523 1080 230 Balance -1896.034 -47.361 -4.010 Intake: IV 622 415 20 CO/CI 150 70 Lactated Ringers 1,000 ml 400 300 20 @ 20 mls/hr IV .Q24H ABIHJIT Rx#:[id number] Pressure Bag 72 45 Intake, IV Titration 4.966 617.639 205.990 Amount Clevidipine Butyrate 25 4.966 291.934 184 mg In Empty Bag 1 bag @ 1 MG/HR 2 mls/hr IV .Q24H ABHIJIT Rx#:[id number] Insulin Regular 100 unit 25.705 21.990 In Sodium Chloride 0.9% 100 ml @ Per Protocol IV .Q0M ABHIJIT Rx#:[id number] Propofol 500 mg In Empty 200.00 Bag 1 bag @ Titrate IV . Q0M ABHIJIT Rx#:[id number] ceFAZolin 2 gm In Sodium 100 Chloride 0.9% 100 ml @ 100 mls/hr IVPB Q8H ABHIJIT Rx#:[id number] Output: Chest Tube Drainage 88 160 30 Chest Tube Left Pleural/ 88 160 30 Mediastinal Urine 1435 920 200 Estimated Blood Loss 1000 Other: Voiding Method Indwelling Catheter Indwelling Catheter # Bowel Movements 0 0 Weight 125.8 kg ABP, PAP, CO, CI - Last 8 Hours Arterial Blood Pressure 148/75 Arterial Blood Pressure 141/73 Arterial Blood Pressure 132/64 Arterial Blood Pressure 139/72 Pulmonary Artery Pressure 25/18 Pulmonary Artery Pressure 25/16 Pulmonary Artery Pressure 32/20 Pulmonary Artery Pressure 29/18 Cardiac Output 8.7 Cardiac Output 8.7 Physical Exam: Revealed a 56-year-old obese in no distress on mechanical ventilation. HEENT:[Neck is supple.] [No neck masses.] [No thyromegaly.] [No JVD.] Chest: [Minimal crackles at the bases] Cardiac Exam: [Normal S1 and S2, no S3 gallop, 2/6 systolic murmur positive pericardial rub] Abdomen: [Soft, nontender, no megaly, no rebound, no guarding, normal bowel sounds.] Extremities: [No clubbing, no edema, no cyanosis.] Neurological Exam: [Cannot be assessed patient is sedated Results - Laboratory Findings CBC and BMP: 10/05/16 04:30 10/05/16 04:30 ABG ABG pH 7.39 (7.35-7.45) 10/05/16 08:10 ABG pCO2 37 mmHg (35-45) 10/05/16 08:10 ABG pO2 71 mmHg (83-108) L 10/05/16 08:10 ABG O2 Saturation 94.0 % (94-97) 10/05/16 08:10 PT/INR, D-dimer PT 10.9 sec (9.0-12.0) 10/05/16 04:30 INR 1.1 (<1.1) 10/05/16 04:30 Abnormal lab findings: Abnormal Labs 09/26/16 10/04/16 10/04/16 09:00 12:58 13:25 WBC RBC Hgb Hct Plt Count Neutrophils # Monocytes # PT ABG pH ABG pCO2 ABG pO2 ABG Total CO2 ABG O2 Saturation Chloride Glucose POC Glucose (mg/dL) 170 H 134 H Calcium Magnesium Alkaline Phosphatase Total Protein Albumin Crossmatch See Detail 10/04/16 10/04/16 10/04/16 13:50 14:34 14:59 WBC RBC Hgb Hct Plt Count Neutrophils # Monocytes # PT ABG pH ABG pCO2 ABG pO2 ABG Total CO2 ABG O2 Saturation Chloride Glucose POC Glucose (mg/dL) 149 H 130 H 122 H Calcium Magnesium Alkaline Phosphatase Total Protein Albumin Crossmatch 10/04/16 10/04/16 10/04/16 15:47 15:50 15:50 WBC 12.3 H RBC 3.44 L Hgb 10.2 L D Hct 31.7 L Plt Count 136 L Neutrophils # Monocytes # PT ABG pH ABG pCO2 ABG pO2 ABG Total CO2 ABG O2 Saturation Chloride 111 H Glucose POC Glucose (mg/dL) 110 H Calcium 7.2 L Magnesium 2.6 H Alkaline Phosphatase 34 L Total Protein 4.1 L Albumin 2.3 L Crossmatch 10/04/16 10/04/16 10/04/16 15:50 17:05 18:39 WBC RBC Hgb Hct Plt Count Neutrophils # Monocytes # PT 12.1 H ABG pH ABG pCO2 ABG pO2 ABG Total CO2 ABG O2 Saturation Chloride Glucose POC Glucose (mg/dL) 106 H 130 H Calcium Magnesium Alkaline Phosphatase Total Protein Albumin Crossmatch 10/04/16 10/04/16 10/04/16 18:40 19:43 20:22 WBC 12.7 H RBC 3.10 L Hgb 9.6 L Hct 27.8 L Plt Count 127 L Neutrophils # 9.6 H Monocytes # PT ABG pH ABG pCO2 ABG pO2 ABG Total CO2 ABG O2 Saturation Chloride Glucose POC Glucose (mg/dL) 129 H 137 H Calcium Magnesium Alkaline Phosphatase Total Protein Albumin Crossmatch 10/04/16 10/04/16 10/04/16 20:33 21:00 21:00 WBC 18.2 H RBC 4.24 L Hgb 12.6 L D Hct 38.2 L Plt Count Neutrophils # 15.1 H Monocytes # 1.2 H PT ABG pH 7.32 L ABG pCO2 47 H ABG pO2 68 L ABG Total CO2 25 H ABG O2 Saturation 92.0 L Chloride 111 H Glucose 146 H POC Glucose (mg/dL) Calcium 8.0 L Magnesium Alkaline Phosphatase Total Protein Albumin Crossmatch 10/04/16 10/04/16 10/04/16 21:09 22:14 23:06 WBC RBC Hgb Hct Plt Count Neutrophils # Monocytes # PT ABG pH ABG pCO2 ABG pO2 ABG Total CO2 ABG O2 Saturation Chloride Glucose POC Glucose (mg/dL) 149 H 154 H 141 H Calcium Magnesium Alkaline Phosphatase Total Protein Albumin Crossmatch 10/05/16 10/05/16 10/05/16 00:10 01:09 02:08 WBC RBC Hgb Hct Plt Count Neutrophils # Monocytes # PT ABG pH ABG pCO2 ABG pO2 ABG Total CO2 ABG O2 Saturation Chloride Glucose POC Glucose (mg/dL) 152 H 134 H 126 H Calcium Magnesium Alkaline Phosphatase Total Protein Albumin Crossmatch 10/05/16 10/05/16 10/05/16 03:08 04:19 04:30 WBC 15.6 H RBC 4.22 L Hgb 12.6 L Hct 37.3 L Plt Count Neutrophils # 12.9 H Monocytes # 1.2 H PT ABG pH ABG pCO2 ABG pO2 ABG Total CO2 ABG O2 Saturation Chloride Glucose POC Glucose (mg/dL) 138 H 148 H Calcium Magnesium Alkaline Phosphatase Total Protein Albumin Crossmatch 10/05/16 10/05/16 10/05/16 04:30 05:34 06:03 WBC RBC Hgb Hct Plt Count Neutrophils # Monocytes # PT ABG pH ABG pCO2 ABG pO2 ABG Total CO2 ABG O2 Saturation Chloride 110 H Glucose 140 H POC Glucose (mg/dL) 150 H 143 H Calcium 7.9 L Magnesium Alkaline Phosphatase Total Protein 5.7 L Albumin 3.3 L Crossmatch 10/05/16 10/05/16 10/05/16 07:05 08:10 08:13 WBC RBC Hgb Hct Plt Count Neutrophils # Monocytes # PT ABG pH ABG pCO2 ABG pO2 71 L ABG Total CO2 ABG O2 Saturation Chloride Glucose POC Glucose (mg/dL) 133 H 131 H Calcium Magnesium Alkaline Phosphatase Total Protein Albumin Crossmatch 10/05/16 10/05/16 10/05/16 08:46 10:07 11:52 WBC RBC Hgb Hct Plt Count Neutrophils # Monocytes # PT ABG pH ABG pCO2 ABG pO2 ABG Total CO2 ABG O2 Saturation Chloride Glucose POC Glucose (mg/dL) 151 H 134 H 127 H Calcium Magnesium Alkaline Phosphatase Total Protein Albumin Crossmatch 10/05/16 13:25 WBC RBC Hgb Hct Plt Count Neutrophils # Monocytes # PT ABG pH ABG pCO2 ABG pO2 ABG Total CO2 ABG O2 Saturation Chloride Glucose POC Glucose (mg/dL) 116 H Calcium Magnesium Alkaline Phosphatase Total Protein Albumin Crossmatch - Diagnostic Findings Chest x-ray: image reviewed (Postoperative changes otherwise unremarkable) Assessment and Plan Plan: Impression: Status post aortic valve replacement, patient is presently on mechanical ventilation. Multiple comorbidities including GERD/reflux, hyperlipidemia, history of migraine cephalgia, and history of osteoarthritis and degenerative disc disease of the cervical spine. Recommendation: Patient will be kept on mechanical ventilation on 10/04/2016, and we will wean and extubate as per protocol either later tonight or in a.m. Date of this service was 10/04/2016 Time with Patient: Greater than 30
--- NOTE | 2016-10-05 14:13 | P.PN ---
Subjective Principal diagnosis: Status post aortic valve replacement This is a 46-year-old white male whom I saw on consultation yesterday on 2016, hence the date of this service was on 10/04/2016, patient has been seeing Dr. Francisco for aortic regurgitation and dyslipidemia. He was experiencing intermittent episodes of chest discomfort and exertional dyspnea. Echocardiogram demonstrated bicuspid aortic valve with at least moderate aortic insufficiency. KHANG demonstrated bicuspid aortic valve with fusion of the right and left coronary cusp and severe aortic insufficiency. Patient had extreme dyspnea with any activity. Hence he was seen by cardiac surgery on consultation , and yesterday on 10/04/2016 patient underwent aortic valve replacement postoperatively, patient was on mechanical ventilation, and I was asked to see him on consultation. I saw the patient in the ICU after he was transferred from the OR, I adjusted his ventilator settings, and I plan to wean the patient over a period of a few hours. However the patient could not be weaned last night because of relative hypoxemia, and we kept him on mechanical ventilation until today when I saw him on follow-up. Patient was reevaluated today on 09/23, ABG was noted to be marginal, chest x-ray showed mild interstitial edema, patient was given Lasix earlier, and he was diuresing well. Hence I proceeded to placing the patient on a short trial of pressure support and CPAP with a pressure support of 8, and he was looking quite well clinically, proceeded to extubating the patient and placed on a high flow nasal cannula may require a 50% on a nonrebreather mask. Clinically however the patient looked quite well after extubation, and he had no form of shortness of breath. Objective - Vital Signs Vital signs: Vital Signs Temp 98.3 F 10/05/16 00:00 Pulse 76 10/05/16 07:30 Resp 15 10/05/16 07:30 BP 132/79 10/05/16 02:00 Pulse Ox 93 L 10/05/16 10:22 Intake & Output 10/04/16 10/05/16 10/05/16 18:59 06:59 18:59 Intake Total 408.325 7648.639 225.990 Output Total 2068 1535 230 Balance -1778.034 -164.361 -4.010 Weight 125.8 kg Intake: IV 285 753 20 CO/CI 60 160 Lactated Ringers 1,000 ml 200 500 20 @ 20 mls/hr IV .Q24H ABHIJIT Rx#:[id number] Pressure Bag 24 93 Intake, IV Titration 4.966 617.639 205.990 Amount Clevidipine Butyrate 25 4.966 291.934 184 mg In Empty Bag 1 bag @ 1 MG/HR 2 mls/hr IV .Q24H ABHIJIT Rx#:[id number] Insulin Regular 100 unit 25.705 21.990 In Sodium Chloride 0.9% 100 ml @ Per Protocol IV .Q0M ABHIJIT Rx#:[id number] Propofol 500 mg In Empty 200.00 Bag 1 bag @ Titrate IV . Q0M ABHIJIT Rx#:[id number] ceFAZolin 2 gm In Sodium 100 Chloride 0.9% 100 ml @ 100 mls/hr IVPB Q8H ABHIJIT Rx#:[id number] Output: Chest Tube Drainage 43 205 30 Chest Tube Left Pleural/ 43 205 30 Mediastinal Urine 1025 1330 200 Estimated Blood Loss 1000 Other: Voiding Method Indwelling Catheter Indwelling Catheter # Bowel Movements 0 0 ABP, PAP, CO, CI - Last Documented Arterial Blood Pressure 148/75 Pulmonary Artery Pressure 25/18 Cardiac Output 8.7 Cardiac Index 3.7 - Exam Physical Exam: Revealed a 56-year-old white male on mechanical ventilation in no distress HEENT:[Neck is supple.] [No neck masses.] [No thyromegaly.] [No JVD.] Chest: [Clear throughout, crackles at the bases] Cardiac Exam: [Normal S1 and S2, no S3 gallop, no murmur.] Abdomen: [Soft, nontender, no megaly, no rebound, no guarding, normal bowel sounds.] Extremities: [No clubbing, no edema, no cyanosis.] Neurological Exam: [No focal neurologic deficit.] - Labs CBC & Chem 7: 10/05/16 04:30 10/05/16 04:30 Labs: Abnormal Lab Results - Last 24 Hours (Table) 09/26/16 10/04/16 10/04/16 Range/Units 09:00 14:34 14:59 WBC (3.8-10.6) k/uL RBC (4.30-5.90) m/uL Hgb (13.0-17.5) gm/dL Hct (39.0-53.0) % Plt Count (150-450) k/uL Neutrophils # (1.3-7.7) k/uL Monocytes # (0-1.0) k/uL PT (9.0-12.0) sec ABG pH (7.35-7.45) ABG pCO2 (35-45) mmHg ABG pO2 (83-108) mmHg ABG Total CO2 (19-24) mmol/L ABG O2 Saturation (94-97) % Chloride (98-107) mmol/L Glucose (74-99) mg/dL POC Glucose (mg/dL) 130 H 122 H (75-99) mg/dL Calcium (8.4-10.2) mg/dL Magnesium (1.6-2.3) mg/dL Alkaline Phosphatase (38-126) U/L Total Protein (6.3-8.2) g/dL Albumin (3.5-5.0) g/dL Crossmatch See Detail 10/04/16 10/04/16 10/04/16 Range/Units 15:47 15:50 15:50 WBC 12.3 H (3.8-10.6) k/uL RBC 3.44 L (4.30-5.90) m/uL Hgb 10.2 L D (13.0-17.5) gm/dL Hct 31.7 L (39.0-53.0) % Plt Count 136 L (150-450) k/uL Neutrophils # (1.3-7.7) k/uL Monocytes # (0-1.0) k/uL PT (9.0-12.0) sec ABG pH (7.35-7.45) ABG pCO2 (35-45) mmHg ABG pO2 (83-108) mmHg ABG Total CO2 (19-24) mmol/L ABG O2 Saturation (94-97) % Chloride 111 H (98-107) mmol/L Glucose (74-99) mg/dL POC Glucose (mg/dL) 110 H (75-99) mg/dL Calcium 7.2 L (8.4-10.2) mg/dL Magnesium 2.6 H (1.6-2.3) mg/dL Alkaline Phosphatase 34 L (38-126) U/L Total Protein 4.1 L (6.3-8.2) g/dL Albumin 2.3 L (3.5-5.0) g/dL Crossmatch 10/04/16 10/04/16 10/04/16 Range/Units 15:50 17:05 18:39 WBC (3.8-10.6) k/uL RBC (4.30-5.90) m/uL Hgb (13.0-17.5) gm/dL Hct (39.0-53.0) % Plt Count (150-450) k/uL Neutrophils # (1.3-7.7) k/uL Monocytes # (0-1.0) k/uL PT 12.1 H (9.0-12.0) sec ABG pH (7.35-7.45) ABG pCO2 (35-45) mmHg ABG pO2 (83-108) mmHg ABG Total CO2 (19-24) mmol/L ABG O2 Saturation (94-97) % Chloride (98-107) mmol/L Glucose (74-99) mg/dL POC Glucose (mg/dL) 106 H 130 H (75-99) mg/dL Calcium (8.4-10.2) mg/dL Magnesium (1.6-2.3) mg/dL Alkaline Phosphatase (38-126) U/L Total Protein (6.3-8.2) g/dL Albumin (3.5-5.0) g/dL Crossmatch 10/04/16 10/04/16 10/04/16 Range/Units 18:40 19:43 20:22 WBC 12.7 H (3.8-10.6) k/uL RBC 3.10 L (4.30-5.90) m/uL Hgb 9.6 L (13.0-17.5) gm/dL Hct 27.8 L (39.0-53.0) % Plt Count 127 L (150-450) k/uL Neutrophils # 9.6 H (1.3-7.7) k/uL Monocytes # (0-1.0) k/uL PT (9.0-12.0) sec ABG pH (7.35-7.45) ABG pCO2 (35-45) mmHg ABG pO2 (83-108) mmHg ABG Total CO2 (19-24) mmol/L ABG O2 Saturation (94-97) % Chloride (98-107) mmol/L Glucose (74-99) mg/dL POC Glucose (mg/dL) 129 H 137 H (75-99) mg/dL Calcium (8.4-10.2) mg/dL Magnesium (1.6-2.3) mg/dL Alkaline Phosphatase (38-126) U/L Total Protein (6.3-8.2) g/dL Albumin (3.5-5.0) g/dL Crossmatch 10/04/16 10/04/16 10/04/16 Range/Units 20:33 21:00 21:00 WBC 18.2 H (3.8-10.6) k/uL RBC 4.24 L (4.30-5.90) m/uL Hgb 12.6 L D (13.0-17.5) gm/dL Hct 38.2 L (39.0-53.0) % Plt Count (150-450) k/uL Neutrophils # 15.1 H (1.3-7.7) k/uL Monocytes # 1.2 H (0-1.0) k/uL PT (9.0-12.0) sec ABG pH 7.32 L (7.35-7.45) ABG pCO2 47 H (35-45) mmHg ABG pO2 68 L (83-108) mmHg ABG Total CO2 25 H (19-24) mmol/L ABG O2 Saturation 92.0 L (94-97) % Chloride 111 H (98-107) mmol/L Glucose 146 H (74-99) mg/dL POC Glucose (mg/dL) (75-99) mg/dL Calcium 8.0 L (8.4-10.2) mg/dL Magnesium (1.6-2.3) mg/dL Alkaline Phosphatase (38-126) U/L Total Protein (6.3-8.2) g/dL Albumin (3.5-5.0) g/dL Crossmatch 10/04/16 10/04/16 10/04/16 Range/Units 21:09 22:14 23:06 WBC (3.8-10.6) k/uL RBC (4.30-5.90) m/uL Hgb (13.0-17.5) gm/dL Hct (39.0-53.0) % Plt Count (150-450) k/uL Neutrophils # (1.3-7.7) k/uL Monocytes # (0-1.0) k/uL PT (9.0-12.0) sec ABG pH (7.35-7.45) ABG pCO2 (35-45) mmHg ABG pO2 (83-108) mmHg ABG Total CO2 (19-24) mmol/L ABG O2 Saturation (94-97) % Chloride (98-107) mmol/L Glucose (74-99) mg/dL POC Glucose (mg/dL) 149 H 154 H 141 H (75-99) mg/dL Calcium (8.4-10.2) mg/dL Magnesium (1.6-2.3) mg/dL Alkaline Phosphatase (38-126) U/L Total Protein (6.3-8.2) g/dL Albumin (3.5-5.0) g/dL Crossmatch 10/05/16 10/05/16 10/05/16 Range/Units 00:10 01:09 02:08 WBC (3.8-10.6) k/uL RBC (4.30-5.90) m/uL Hgb (13.0-17.5) gm/dL Hct (39.0-53.0) % Plt Count (150-450) k/uL Neutrophils # (1.3-7.7) k/uL Monocytes # (0-1.0) k/uL PT (9.0-12.0) sec ABG pH (7.35-7.45) ABG pCO2 (35-45) mmHg ABG pO2 (83-108) mmHg ABG Total CO2 (19-24) mmol/L ABG O2 Saturation (94-97) % Chloride (98-107) mmol/L Glucose (74-99) mg/dL POC Glucose (mg/dL) 152 H 134 H 126 H (75-99) mg/dL Calcium (8.4-10.2) mg/dL Magnesium (1.6-2.3) mg/dL Alkaline Phosphatase (38-126) U/L Total Protein (6.3-8.2) g/dL Albumin (3.5-5.0) g/dL Crossmatch 10/05/16 10/05/16 10/05/16 Range/Units 03:08 04:19 04:30 WBC 15.6 H (3.8-10.6) k/uL RBC 4.22 L (4.30-5.90) m/uL Hgb 12.6 L (13.0-17.5) gm/dL Hct 37.3 L (39.0-53.0) % Plt Count (150-450) k/uL Neutrophils # 12.9 H (1.3-7.7) k/uL Monocytes # 1.2 H (0-1.0) k/uL PT (9.0-12.0) sec ABG pH (7.35-7.45) ABG pCO2 (35-45) mmHg ABG pO2 (83-108) mmHg ABG Total CO2 (19-24) mmol/L ABG O2 Saturation (94-97) % Chloride (98-107) mmol/L Glucose (74-99) mg/dL POC Glucose (mg/dL) 138 H 148 H (75-99) mg/dL Calcium (8.4-10.2) mg/dL Magnesium (1.6-2.3) mg/dL Alkaline Phosphatase (38-126) U/L Total Protein (6.3-8.2) g/dL Albumin (3.5-5.0) g/dL Crossmatch 10/05/16 10/05/16 10/05/16 Range/Units 04:30 05:34 06:03 WBC (3.8-10.6) k/uL RBC (4.30-5.90) m/uL Hgb (13.0-17.5) gm/dL Hct (39.0-53.0) % Plt Count (150-450) k/uL Neutrophils # (1.3-7.7) k/uL Monocytes # (0-1.0) k/uL PT (9.0-12.0) sec ABG pH (7.35-7.45) ABG pCO2 (35-45) mmHg ABG pO2 (83-108) mmHg ABG Total CO2 (19-24) mmol/L ABG O2 Saturation (94-97) % Chloride 110 H (98-107) mmol/L Glucose 140 H (74-99) mg/dL POC Glucose (mg/dL) 150 H 143 H (75-99) mg/dL Calcium 7.9 L (8.4-10.2) mg/dL Magnesium (1.6-2.3) mg/dL Alkaline Phosphatase (38-126) U/L Total Protein 5.7 L (6.3-8.2) g/dL Albumin 3.3 L (3.5-5.0) g/dL Crossmatch 10/05/16 10/05/16 10/05/16 Range/Units 07:05 08:10 08:13 WBC (3.8-10.6) k/uL RBC (4.30-5.90) m/uL Hgb (13.0-17.5) gm/dL Hct (39.0-53.0) % Plt Count (150-450) k/uL Neutrophils # (1.3-7.7) k/uL Monocytes # (0-1.0) k/uL PT (9.0-12.0) sec ABG pH (7.35-7.45) ABG pCO2 (35-45) mmHg ABG pO2 71 L (83-108) mmHg ABG Total CO2 (19-24) mmol/L ABG O2 Saturation (94-97) % Chloride (98-107) mmol/L Glucose (74-99) mg/dL POC Glucose (mg/dL) 133 H 131 H (75-99) mg/dL Calcium (8.4-10.2) mg/dL Magnesium (1.6-2.3) mg/dL Alkaline Phosphatase (38-126) U/L Total Protein (6.3-8.2) g/dL Albumin (3.5-5.0) g/dL Crossmatch 10/05/16 10/05/16 10/05/16 Range/Units 08:46 10:07 11:52 WBC (3.8-10.6) k/uL RBC (4.30-5.90) m/uL Hgb (13.0-17.5) gm/dL Hct (39.0-53.0) % Plt Count (150-450) k/uL Neutrophils # (1.3-7.7) k/uL Monocytes # (0-1.0) k/uL PT (9.0-12.0) sec ABG pH (7.35-7.45) ABG pCO2 (35-45) mmHg ABG pO2 (83-108) mmHg ABG Total CO2 (19-24) mmol/L ABG O2 Saturation (94-97) % Chloride (98-107) mmol/L Glucose (74-99) mg/dL POC Glucose (mg/dL) 151 H 134 H 127 H (75-99) mg/dL Calcium (8.4-10.2) mg/dL Magnesium (1.6-2.3) mg/dL Alkaline Phosphatase (38-126) U/L Total Protein (6.3-8.2) g/dL Albumin (3.5-5.0) g/dL Crossmatch 10/05/16 Range/Units 13:25 WBC (3.8-10.6) k/uL RBC (4.30-5.90) m/uL Hgb (13.0-17.5) gm/dL Hct (39.0-53.0) % Plt Count (150-450) k/uL Neutrophils # (1.3-7.7) k/uL Monocytes # (0-1.0) k/uL PT (9.0-12.0) sec ABG pH (7.35-7.45) ABG pCO2 (35-45) mmHg ABG pO2 (83-108) mmHg ABG Total CO2 (19-24) mmol/L ABG O2 Saturation (94-97) % Chloride (98-107) mmol/L Glucose (74-99) mg/dL POC Glucose (mg/dL) 116 H (75-99) mg/dL Calcium (8.4-10.2) mg/dL Magnesium (1.6-2.3) mg/dL Alkaline Phosphatase (38-126) U/L Total Protein (6.3-8.2) g/dL Albumin (3.5-5.0) g/dL Crossmatch Assessment and Plan Plan: Impression: Status post aortic valve replacement, patient is presently on mechanical ventilation. We will extubate the patient today on 10/05/2016 Multiple comorbidities including GERD/reflux, hyperlipidemia, history of migraine cephalgia, and history of osteoarthritis and degenerative disc disease of the cervical spine. Recommendation: Patient was extubated continue incentive spirometry, bronchodilators will be continued, and we will follow closely. Time with Patient: Less than 30
[2016-10-05] MEDS ORDERED: HYDROcodone/APAP 5-325MG 1 EACH TAB PO PRN ×2 (15:33→15:34)
[2016-10-05] MEDS ORDERED: BISACODYL 10 MG SUPP RECTAL PRN (15:34)
[2016-10-05] MEDS ORDERED: MAGNESIUM HYDROXIDE 2,400 MG/10 ML CUP PO PRN (15:34)
[2016-10-05] MEDS ORDERED: METOPROLOL TARTRATE 25 MG TAB PO SCH ×2 (16:00→21:00)
[2016-10-05 16:15] LABS: Glucose,Whole Blood 140 mg/dL (75-99)
[2016-10-05] MEDS: LACTATED RINGERS 1,000 ML IV SCH (16:34)
[2016-10-05] MEDS ORDERED: METOPROLOL TARTRATE 5 MG/5 ML VIAL IVP ONE (16:54)
[2016-10-05] MEDS: DIVALPROEX 500 MG TABLET.DR PO SCH (17:04)
[2016-10-05] MEDS: KETOROLAC 30 MG/ML 1 ML VIAL IVP SCH (17:10)
[2016-10-05] MEDS ORDERED: hydrALAZINE HCL 10 MG TAB PO ONE (17:11)
[2016-10-05 17:18] LABS: Glucose,Whole Blood 162 mg/dL (75-99)
[2016-10-05] MEDS: INSULIN REGULAR 100 UNIT in SODIUM CHLORIDE 0.9% 100 ML IV SCH (17:18)
[2016-10-05 18:18] LABS: Glucose,Whole Blood 110 mg/dL (75-99)
--- NOTE | 2016-10-05 18:19 | P.PN ---
Subjective Principal diagnosis: Severe aortic regurgitation. POD #1 aortic valve replacement, transesophageal echocardiogram. Patient was extubated earlier today. Currently sitting up in bed in no apparent distress. Objective - Vital Signs Vital signs: Vital Signs Temp 98.4 F 10/05/16 12:00 Pulse 71 10/05/16 15:00 Resp 20 10/05/16 15:00 BP 132/79 10/05/16 02:00 Pulse Ox 91 L 10/05/16 15:00 Intake & Output 10/04/16 10/05/16 10/05/16 18:59 06:59 18:59 Intake Total 040.744 0423.639 514.125 Output Total 2068 1535 1240 Balance -1778.034 -164.361 -725.875 Weight 125.8 kg Intake: IV 285 753 220 CO/CI 60 160 Lactated Ringers 1,000 ml 200 500 220 @ 20 mls/hr IV .Q24H ABHIJIT Rx#:[id number] Pressure Bag 24 93 Intake, IV Titration 4.966 617.639 294.125 Amount Clevidipine Butyrate 25 4.966 291.934 234 mg In Empty Bag 1 bag @ 1 MG/HR 2 mls/hr IV .Q24H ABHIJIT Rx#:[id number] Insulin Regular 100 unit 25.705 60.125 In Sodium Chloride 0.9% 100 ml @ Per Protocol IV .Q0M ABHIJIT Rx#:[id number] Propofol 500 mg In Empty 200.00 Bag 1 bag @ Titrate IV . Q0M ABHIJIT Rx#:[id number] ceFAZolin 2 gm In Sodium 100 Chloride 0.9% 100 ml @ 100 mls/hr IVPB Q8H ABHIJIT Rx#:[id number] Output: Chest Tube Drainage 43 205 180 Chest Tube Left Pleural/ 43 205 180 Mediastinal Urine 1025 1330 1060 Estimated Blood Loss 1000 Other: Voiding Method Indwelling Catheter Indwelling Catheter Indwelling Catheter # Bowel Movements 0 0 0 ABP, PAP, CO, CI - Last Documented Arterial Blood Pressure 134/69 Pulmonary Artery Pressure 31/19 Cardiac Output 8.2 Cardiac Index 3.5 - Constitutional General appearance: Present: cooperative, no acute distress - Respiratory Details: Lungs sounds diminished bilaterally. Respirations even, nonlabored. Currently on a 50% Ventimask. - Cardiovascular Details: S1, S2 present. Regular rate and rhythm, normal sinus rhythm on telemetry. No events noted overnight. Stafford DC'd earlier, right internal jugular Cordis remains present. A/V epicardial pacemaker wires present, attached to generator , generator off. Sternum stable. Heart hugger in place with patient demonstrating appropriate use. Teds, SCDs present. - Gastrointestinal Gastrointestinal Comment(s): Abdomen soft, nontender, nondistended. Hypoactive bowel sounds 4 quadrants. Tolerating diet. - Genitourinary Genitourinary Comment(s): Amaya present draining clear, yellow urine. Urine output 100-225 mL per hour. - Integumentary Integumentary Comment(s): Anterior chest wall incision covered with dry intact Silverlon dressing. - Musculoskeletal Musculoskeletal: Present: strength equal bilaterally - Psychiatric Psychiatric: Present: A&O x's 3, appropriate affect, intact judgment & insight - Allied health notes Allied health notes reviewed: nursing - Labs CBC & Chem 7: 10/05/16 04:30 10/05/16 04:30 Labs: Abnormal Lab Results - Last 24 Hours (Table) 09/26/16 10/04/16 10/04/16 Range/Units 09:00 18:39 18:40 WBC 12.7 H (3.8-10.6) k/uL RBC 3.10 L (4.30-5.90) m/uL Hgb 9.6 L (13.0-17.5) gm/dL Hct 27.8 L (39.0-53.0) % Plt Count 127 L (150-450) k/uL Neutrophils # 9.6 H (1.3-7.7) k/uL Monocytes # (0-1.0) k/uL ABG pH (7.35-7.45) ABG pCO2 (35-45) mmHg ABG pO2 (83-108) mmHg ABG Total CO2 (19-24) mmol/L ABG O2 Saturation (94-97) % Chloride (98-107) mmol/L Glucose (74-99) mg/dL POC Glucose (mg/dL) 130 H (75-99) mg/dL Calcium (8.4-10.2) mg/dL Total Protein (6.3-8.2) g/dL Albumin (3.5-5.0) g/dL Crossmatch See Detail 10/04/16 10/04/16 10/04/16 Range/Units 19:43 20:22 20:33 WBC (3.8-10.6) k/uL RBC (4.30-5.90) m/uL Hgb (13.0-17.5) gm/dL Hct (39.0-53.0) % Plt Count (150-450) k/uL Neutrophils # (1.3-7.7) k/uL Monocytes # (0-1.0) k/uL ABG pH 7.32 L (7.35-7.45) ABG pCO2 47 H (35-45) mmHg ABG pO2 68 L (83-108) mmHg ABG Total CO2 25 H (19-24) mmol/L ABG O2 Saturation 92.0 L (94-97) % Chloride (98-107) mmol/L Glucose (74-99) mg/dL POC Glucose (mg/dL) 129 H 137 H (75-99) mg/dL Calcium (8.4-10.2) mg/dL Total Protein (6.3-8.2) g/dL Albumin (3.5-5.0) g/dL Crossmatch 10/04/16 10/04/16 10/04/16 Range/Units 21:00 21:00 21:09 WBC 18.2 H (3.8-10.6) k/uL RBC 4.24 L (4.30-5.90) m/uL Hgb 12.6 L D (13.0-17.5) gm/dL Hct 38.2 L (39.0-53.0) % Plt Count (150-450) k/uL Neutrophils # 15.1 H (1.3-7.7) k/uL Monocytes # 1.2 H (0-1.0) k/uL ABG pH (7.35-7.45) ABG pCO2 (35-45) mmHg ABG pO2 (83-108) mmHg ABG Total CO2 (19-24) mmol/L ABG O2 Saturation (94-97) % Chloride 111 H (98-107) mmol/L Glucose 146 H (74-99) mg/dL POC Glucose (mg/dL) 149 H (75-99) mg/dL Calcium 8.0 L (8.4-10.2) mg/dL Total Protein (6.3-8.2) g/dL Albumin (3.5-5.0) g/dL Crossmatch 10/04/16 10/04/16 10/05/16 Range/Units 22:14 23:06 00:10 WBC (3.8-10.6) k/uL RBC (4.30-5.90) m/uL Hgb (13.0-17.5) gm/dL Hct (39.0-53.0) % Plt Count (150-450) k/uL Neutrophils # (1.3-7.7) k/uL Monocytes # (0-1.0) k/uL ABG pH (7.35-7.45) ABG pCO2 (35-45) mmHg ABG pO2 (83-108) mmHg ABG Total CO2 (19-24) mmol/L ABG O2 Saturation (94-97) % Chloride (98-107) mmol/L Glucose (74-99) mg/dL POC Glucose (mg/dL) 154 H 141 H 152 H (75-99) mg/dL Calcium (8.4-10.2) mg/dL Total Protein (6.3-8.2) g/dL Albumin (3.5-5.0) g/dL Crossmatch 10/05/16 10/05/16 10/05/16 Range/Units 01:09 02:08 03:08 WBC (3.8-10.6) k/uL RBC (4.30-5.90) m/uL Hgb (13.0-17.5) gm/dL Hct (39.0-53.0) % Plt Count (150-450) k/uL Neutrophils # (1.3-7.7) k/uL Monocytes # (0-1.0) k/uL ABG pH (7.35-7.45) ABG pCO2 (35-45) mmHg ABG pO2 (83-108) mmHg ABG Total CO2 (19-24) mmol/L ABG O2 Saturation (94-97) % Chloride (98-107) mmol/L Glucose (74-99) mg/dL POC Glucose (mg/dL) 134 H 126 H 138 H (75-99) mg/dL Calcium (8.4-10.2) mg/dL Total Protein (6.3-8.2) g/dL Albumin (3.5-5.0) g/dL Crossmatch 10/05/16 10/05/16 10/05/16 Range/Units 04:19 04:30 04:30 WBC 15.6 H (3.8-10.6) k/uL RBC 4.22 L (4.30-5.90) m/uL Hgb 12.6 L (13.0-17.5) gm/dL Hct 37.3 L (39.0-53.0) % Plt Count (150-450) k/uL Neutrophils # 12.9 H (1.3-7.7) k/uL Monocytes # 1.2 H (0-1.0) k/uL ABG pH (7.35-7.45) ABG pCO2 (35-45) mmHg ABG pO2 (83-108) mmHg ABG Total CO2 (19-24) mmol/L ABG O2 Saturation (94-97) % Chloride 110 H (98-107) mmol/L Glucose 140 H (74-99) mg/dL POC Glucose (mg/dL) 148 H (75-99) mg/dL Calcium 7.9 L (8.4-10.2) mg/dL Total Protein 5.7 L (6.3-8.2) g/dL Albumin 3.3 L (3.5-5.0) g/dL Crossmatch 10/05/16 10/05/16 10/05/16 Range/Units 05:34 06:03 07:05 WBC (3.8-10.6) k/uL RBC (4.30-5.90) m/uL Hgb (13.0-17.5) gm/dL Hct (39.0-53.0) % Plt Count (150-450) k/uL Neutrophils # (1.3-7.7) k/uL Monocytes # (0-1.0) k/uL ABG pH (7.35-7.45) ABG pCO2 (35-45) mmHg ABG pO2 (83-108) mmHg ABG Total CO2 (19-24) mmol/L ABG O2 Saturation (94-97) % Chloride (98-107) mmol/L Glucose (74-99) mg/dL POC Glucose (mg/dL) 150 H 143 H 133 H (75-99) mg/dL Calcium (8.4-10.2) mg/dL Total Protein (6.3-8.2) g/dL Albumin (3.5-5.0) g/dL Crossmatch 10/05/16 10/05/16 10/05/16 Range/Units 08:10 08:13 08:46 WBC (3.8-10.6) k/uL RBC (4.30-5.90) m/uL Hgb (13.0-17.5) gm/dL Hct (39.0-53.0) % Plt Count (150-450) k/uL Neutrophils # (1.3-7.7) k/uL Monocytes # (0-1.0) k/uL ABG pH (7.35-7.45) ABG pCO2 (35-45) mmHg ABG pO2 71 L (83-108) mmHg ABG Total CO2 (19-24) mmol/L ABG O2 Saturation (94-97) % Chloride (98-107) mmol/L Glucose (74-99) mg/dL POC Glucose (mg/dL) 131 H 151 H (75-99) mg/dL Calcium (8.4-10.2) mg/dL Total Protein (6.3-8.2) g/dL Albumin (3.5-5.0) g/dL Crossmatch 10/05/16 10/05/16 10/05/16 Range/Units 10:07 11:52 13:25 WBC (3.8-10.6) k/uL RBC (4.30-5.90) m/uL Hgb (13.0-17.5) gm/dL Hct (39.0-53.0) % Plt Count (150-450) k/uL Neutrophils # (1.3-7.7) k/uL Monocytes # (0-1.0) k/uL ABG pH (7.35-7.45) ABG pCO2 (35-45) mmHg ABG pO2 (83-108) mmHg ABG Total CO2 (19-24) mmol/L ABG O2 Saturation (94-97) % Chloride (98-107) mmol/L Glucose (74-99) mg/dL POC Glucose (mg/dL) 134 H 127 H 116 H (75-99) mg/dL Calcium (8.4-10.2) mg/dL Total Protein (6.3-8.2) g/dL Albumin (3.5-5.0) g/dL Crossmatch 10/05/16 10/05/16 Range/Units 16:13 17:17 WBC (3.8-10.6) k/uL RBC (4.30-5.90) m/uL Hgb (13.0-17.5) gm/dL Hct (39.0-53.0) % Plt Count (150-450) k/uL Neutrophils # (1.3-7.7) k/uL Monocytes # (0-1.0) k/uL ABG pH (7.35-7.45) ABG pCO2 (35-45) mmHg ABG pO2 (83-108) mmHg ABG Total CO2 (19-24) mmol/L ABG O2 Saturation (94-97) % Chloride (98-107) mmol/L Glucose (74-99) mg/dL POC Glucose (mg/dL) 140 H 162 H (75-99) mg/dL Calcium (8.4-10.2) mg/dL Total Protein (6.3-8.2) g/dL Albumin (3.5-5.0) g/dL Crossmatch - Imaging and Cardiology Chest x-ray: report reviewed, image reviewed Assessment and Plan (1) Status post aortic valve replacement with bioprosthetic valve Status: Acute (2) Bicuspid aortic valve Status: Acute (3) Cannabis abuse, daily use Status: Acute (4) Family history of early CAD Status: Acute (5) Hypertriglyceridemia Status: Acute (6) Quit smoking within past year Status: Acute Plan: 1. Continue aspirin, Lipitor, Plavix, heparin. 2. Lopressor increased throughout the day, latest dose 50 mg by mouth twice a day. Wean off Cleviprex as able. 3. Encourage incentive spirometry use, pulmonary toileting. 4. Increase activity, out of bed to chair. PT to follow. 5. GI/DVT prophylaxis. 6. Home meds added, pain medication increased. 7. Daily labs, x-rays. 8. More recommendations as patient progresses. Time with Patient: Greater than 30
[2016-10-05] MEDS ORDERED: HYDROcodone/APAP 7.5-325MG 1 EACH TAB PO PRN (18:33)
[2016-10-05 19:24] LABS: Glucose,Whole Blood 131 mg/dL (75-99)
[2016-10-05] MEDS: SENNOSIDES-DOCUSATE SODIUM 1 EACH TAB PO SCH (20:17)
[2016-10-05 20:18] LABS: Glucose,Whole Blood 116 mg/dL (75-99)
[2016-10-05] MEDS: METOPROLOL TARTRATE 50 MG TAB PO SCH (20:18)
[2016-10-05] MEDS: HYDROcodone/APAP 7.5-325MG 1 EACH TAB PO PRN (20:28)
[2016-10-05 21:04] LABS: Glucose,Whole Blood 112 mg/dL (75-99)
[2016-10-05] MEDS ORDERED: LISINOPRIL 5 MG TAB PO SCH (21:30)
[2016-10-05 22:05] LABS: Glucose,Whole Blood 126 mg/dL (75-99)
--- NOTE | 2016-10-05 22:38 | P.CONS ---
History of Present Illness - Reason for Consult Consult date: 10/05/16 - Chief Complaint Postop medical management. - History of Present Illness This is a medical consultation note on a 46-year-old white male who is fairly well known to my practice for the last 2-3 years who is essentially admitted for valvulopathy. The patient is postop day 1 and I'm consulted to help assist with medical management. I do appreciate tracer clerk input also. The patient is quite sedated at this time. However, monitored vitals seem to be stable. No fever. No voiding difficulties are noted.The patient has an underlying history of severe hyperlipidemia and depression. Review of Systems ROS unobtainable: due to endotracheal tube Past Medical History Past Medical History: GERD/Reflux, Hyperlipidemia, Musculoskeletal Disorder, Skin Disorder Additional Past Medical History / Comment(s): increased SOB w/ and w/out activity, Hx migraines, degenerative discs in neck, bone spurs, eczema,states heart valve with only 2 flaps,heart murmur, diarrhea History of Any Multi-Drug Resistant Organisms: None Reported Past Surgical History: Adenoidectomy, Hernia Repair, Tonsillectomy Additional Past Surgical History / Comment(s): Neck disc c4/c5,EGD,colonoscopy Past Anesthesia/Blood Transfusion Reactions: Motion Sickness Additional Past Anesthesia/Blood Transfusion Reaction / Comm: vertigo with motion,no hx blood transfusion. Past Psychological History: Anxiety, Bipolar, Depression Smoking Status: Former smoker Past Alcohol Use History: Rare Additional Past Alcohol Use History / Comment(s): 1 PPD-HAS BEEN SMOKING 30 YRS, 1-2 ppd,quit smoking -2016 Past Drug Use History: Marijuana Additional Drug Use History / Comment(s): SMOKES 3 JOINTS DAILY, has medical marijuana card. - Past Family History Mother Family Medical History: No Reported History Medications and Allergies Home Medications Medication Instructions Recorded Confirmed Type HYDROcodone/APAP 7.5-325MG [Slaughters 1 tab PO TID PRN 09/14/15 10/04/16 History 7.5-325] Omeprazole 40 mg PO DAILY 09/14/15 10/04/16 History clonazePAM [KlonoPIN] 1 mg PO BID PRN 09/14/15 10/04/16 History Propranolol LA [Inderal LA] 80 mg PO DAILY 04/21/16 10/04/16 History Sertraline [Zoloft] 100 mg PO QAM 04/21/16 10/04/16 History Fenofibrate 160 mg PO DAILY 07/18/16 10/04/16 History Divalproex [Depakote] 1,000 mg PO DAILY@1800 08/28/16 10/04/16 History Allergies Allergy/AdvReac Type Severity Reaction Status Date / Time morphine AdvReac aggitation Verified 09/26/16 11:30 Physical Exam Vitals: Vital Signs Temp Pulse Pulse Resp BP Pulse Ox 10/05/16 20:00 70 22 114/66 92 L 10/05/16 19:00 68 19 114/66 89 L 10/05/16 18:00 67 20 88 L 10/05/16 17:00 71 24 88 L 10/05/16 16:00 98.2 F 75 62 19 89 L 10/05/16 15:00 71 20 91 L 10/05/16 14:00 74 18 87 L 10/05/16 13:00 70 21 96 10/05/16 12:00 98.4 F 75 18 96 10/05/16 11:00 78 62 22 89 L 10/05/16 10:22 93 L 10/05/16 10:00 74 20 93 L 10/05/16 09:00 83 13 93 L 10/05/16 08:00 82 62 12 93 L 10/05/16 07:30 76 15 95 10/05/16 07:20 79 10/05/16 07:00 82 13 94 L 10/05/16 06:30 78 16 93 L 10/05/16 06:00 85 13 94 L 10/05/16 05:30 82 12 93 L 10/05/16 05:00 78 16 94 L 10/05/16 04:30 83 12 94 L 10/05/16 04:00 80 62 12 94 L 10/05/16 03:45 77 10/05/16 03:31 79 10/05/16 03:30 80 12 95 10/05/16 03:00 79 12 93 L 10/05/16 02:30 77 11 L 93 L 10/05/16 02:00 76 11 L 132/79 93 L 10/05/16 01:30 74 11 L 93 L 10/05/16 01:00 71 11 L 132/79 93 L 10/05/16 00:30 71 12 93 L 10/05/16 00:00 98.3 F 69 62 12 93 L 10/04/16 23:58 67 10/04/16 23:43 68 10/04/16 23:30 68 11 L 93 L 10/04/16 23:05 66 11 L 95 10/04/16 23:00 66 11 L 94 L 10/04/16 22:45 65 12 94 L 10/04/16 22:30 69 12 93 L Intake and Output 10/05/16 10/05/16 10/05/16 06:59 14:59 22:59 Intake Total 1032.639 385.990 484.250 Output Total 1080 1110 730 Balance -47.361 -724.010 -245.750 Intake: IV 415 180 200 CO/CI 70 Lactated Ringers 1,000 ml 300 180 200 @ 20 mls/hr IV .Q24H ABHIJIT Rx#:[id number] Pressure Bag 45 Intake, IV Titration 617.639 205.990 284.250 Amount Clevidipine Butyrate 25 291.934 184 228.5 mg In Empty Bag 1 bag @ 1 MG/HR 2 mls/hr IV .Q24H ABHIJIT Rx#:[id number] Insulin Regular 100 unit 25.705 21.990 55.750 In Sodium Chloride 0.9% 100 ml @ Per Protocol IV .Q0M ABHIJIT Rx#:[id number] Propofol 500 mg In Empty 200.00 Bag 1 bag @ Titrate IV . Q0M ABHIJIT Rx#:[id number] ceFAZolin 2 gm In Sodium 100 Chloride 0.9% 100 ml @ 100 mls/hr IVPB Q8H ABHIJIT Rx#:[id number] Output: Chest Tube Drainage 160 150 230 Chest Tube Left Pleural/ 160 150 230 Mediastinal Urine 920 960 500 Other: Voiding Method Indwelling Catheter Indwelling Catheter Indwelling Catheter # Bowel Movements 0 0 Weight 125.8 kg ABP, PAP, CO, CI - Last 8 Hours Arterial Blood Pressure 151/74 Arterial Blood Pressure 147/67 Arterial Blood Pressure 133/66 Arterial Blood Pressure 129/64 Arterial Blood Pressure 106/89 Arterial Blood Pressure 134/69 - Constitutional General appearance: obese - EENT Eyes: no abnormal pupil - Neck Neck: no lymphadenopathy - Respiratory Respiratory: bilateral: CTA - Cardiovascular Rhythm: regular Heart sounds: normal: S1, S2 - Gastrointestinal General gastrointestinal: no organomegaly, soft, no tenderness Results CBC & Chem 7: 10/05/16 04:30 10/05/16 04:30 Labs: Abnormal Lab Results - Last 24 Hours (Table) 09/26/16 10/04/16 10/05/16 Range/Units 09:00 23:06 00:10 WBC (3.8-10.6) k/uL RBC (4.30-5.90) m/uL Hgb (13.0-17.5) gm/dL Hct (39.0-53.0) % Neutrophils # (1.3-7.7) k/uL Monocytes # (0-1.0) k/uL ABG pO2 (83-108) mmHg Chloride (98-107) mmol/L Glucose (74-99) mg/dL POC Glucose (mg/dL) 141 H 152 H (75-99) mg/dL Calcium (8.4-10.2) mg/dL Total Protein (6.3-8.2) g/dL Albumin (3.5-5.0) g/dL Crossmatch See Detail 10/05/16 10/05/16 10/05/16 Range/Units 01:09 02:08 03:08 WBC (3.8-10.6) k/uL RBC (4.30-5.90) m/uL Hgb (13.0-17.5) gm/dL Hct (39.0-53.0) % Neutrophils # (1.3-7.7) k/uL Monocytes # (0-1.0) k/uL ABG pO2 (83-108) mmHg Chloride (98-107) mmol/L Glucose (74-99) mg/dL POC Glucose (mg/dL) 134 H 126 H 138 H (75-99) mg/dL Calcium (8.4-10.2) mg/dL Total Protein (6.3-8.2) g/dL Albumin (3.5-5.0) g/dL Crossmatch 10/05/16 10/05/16 10/05/16 Range/Units 04:19 04:30 04:30 WBC 15.6 H (3.8-10.6) k/uL RBC 4.22 L (4.30-5.90) m/uL Hgb 12.6 L (13.0-17.5) gm/dL Hct 37.3 L (39.0-53.0) % Neutrophils # 12.9 H (1.3-7.7) k/uL Monocytes # 1.2 H (0-1.0) k/uL ABG pO2 (83-108) mmHg Chloride 110 H (98-107) mmol/L Glucose 140 H (74-99) mg/dL POC Glucose (mg/dL) 148 H (75-99) mg/dL Calcium 7.9 L (8.4-10.2) mg/dL Total Protein 5.7 L (6.3-8.2) g/dL Albumin 3.3 L (3.5-5.0) g/dL Crossmatch 10/05/16 10/05/16 10/05/16 Range/Units 05:34 06:03 07:05 WBC (3.8-10.6) k/uL RBC (4.30-5.90) m/uL Hgb (13.0-17.5) gm/dL Hct (39.0-53.0) % Neutrophils # (1.3-7.7) k/uL Monocytes # (0-1.0) k/uL ABG pO2 (83-108) mmHg Chloride (98-107) mmol/L Glucose (74-99) mg/dL POC Glucose (mg/dL) 150 H 143 H 133 H (75-99) mg/dL Calcium (8.4-10.2) mg/dL Total Protein (6.3-8.2) g/dL Albumin (3.5-5.0) g/dL Crossmatch 10/05/16 10/05/16 10/05/16 Range/Units 08:10 08:13 08:46 WBC (3.8-10.6) k/uL RBC (4.30-5.90) m/uL Hgb (13.0-17.5) gm/dL Hct (39.0-53.0) % Neutrophils # (1.3-7.7) k/uL Monocytes # (0-1.0) k/uL ABG pO2 71 L (83-108) mmHg Chloride (98-107) mmol/L Glucose (74-99) mg/dL POC Glucose (mg/dL) 131 H 151 H (75-99) mg/dL Calcium (8.4-10.2) mg/dL Total Protein (6.3-8.2) g/dL Albumin (3.5-5.0) g/dL Crossmatch 10/05/16 10/05/16 10/05/16 Range/Units 10:07 11:52 13:25 WBC (3.8-10.6) k/uL RBC (4.30-5.90) m/uL Hgb (13.0-17.5) gm/dL Hct (39.0-53.0) % Neutrophils # (1.3-7.7) k/uL Monocytes # (0-1.0) k/uL ABG pO2 (83-108) mmHg Chloride (98-107) mmol/L Glucose (74-99) mg/dL POC Glucose (mg/dL) 134 H 127 H 116 H (75-99) mg/dL Calcium (8.4-10.2) mg/dL Total Protein (6.3-8.2) g/dL Albumin (3.5-5.0) g/dL Crossmatch 10/05/16 10/05/16 10/05/16 Range/Units 16:13 17:17 18:16 WBC (3.8-10.6) k/uL RBC (4.30-5.90) m/uL Hgb (13.0-17.5) gm/dL Hct (39.0-53.0) % Neutrophils # (1.3-7.7) k/uL Monocytes # (0-1.0) k/uL ABG pO2 (83-108) mmHg Chloride (98-107) mmol/L Glucose (74-99) mg/dL POC Glucose (mg/dL) 140 H 162 H 110 H (75-99) mg/dL Calcium (8.4-10.2) mg/dL Total Protein (6.3-8.2) g/dL Albumin (3.5-5.0) g/dL Crossmatch 10/05/16 10/05/16 10/05/16 Range/Units 19:21 20:16 21:03 WBC (3.8-10.6) k/uL RBC (4.30-5.90) m/uL Hgb (13.0-17.5) gm/dL Hct (39.0-53.0) % Neutrophils # (1.3-7.7) k/uL Monocytes # (0-1.0) k/uL ABG pO2 (83-108) mmHg Chloride (98-107) mmol/L Glucose (74-99) mg/dL POC Glucose (mg/dL) 131 H 116 H 112 H (75-99) mg/dL Calcium (8.4-10.2) mg/dL Total Protein (6.3-8.2) g/dL Albumin (3.5-5.0) g/dL Crossmatch 10/05/16 Range/Units 22:03 WBC (3.8-10.6) k/uL RBC (4.30-5.90) m/uL Hgb (13.0-17.5) gm/dL Hct (39.0-53.0) % Neutrophils # (1.3-7.7) k/uL Monocytes # (0-1.0) k/uL ABG pO2 (83-108) mmHg Chloride (98-107) mmol/L Glucose (74-99) mg/dL POC Glucose (mg/dL) 126 H (75-99) mg/dL Calcium (8.4-10.2) mg/dL Total Protein (6.3-8.2) g/dL Albumin (3.5-5.0) g/dL Crossmatch Assessment and Plan (1) Status post aortic valve replacement with bioprosthetic valve Status: Acute (2) Cannabis abuse, daily use Status: Acute (3) Hypertriglyceridemia Status: Acute (4) Severe aortic insufficiency Status: Acute Plan: Continue to follow postop management with pulmonology and surgery. The patient is doing quite well postop day #1 for medical stability. Slowly wean off of IV medication. Wean off of intubation as per pulmonology. See orders otherwise.
[2016-10-06] MEDS: KETOROLAC 30 MG/ML 1 ML VIAL IVP SCH ×4 (00:10→17:26)
[2016-10-06] MEDS: HYDROcodone/APAP 7.5-325MG 1 EACH TAB PO PRN ×7 (00:30→22:36)
[2016-10-06] MEDS: CLEVIDIPINE BUTYRATE 25 MG in EMPTY BAG 1 BAG IV SCH ×5 (01:00→05:27)
--- NOTE | 2016-10-06 04:19 | CONS ---
DATE OF CONSULTATION: Trevor Bolanos is a 46-year-old gentleman with a history of bicuspid aortic valve with significant regurgitation but no significant coronary artery disease. He underwent aortic valve replacement with a tissue valve yesterday. I am seeing him postoperatively. He has been extubated. He seems to be doing well. He is still on a small dose of pressors, but hemodynamically stable and remained in sinus rhythm, resting comfortably. PAST MEDICAL HISTORY: Remarkable for hyperlipidemia, gastroesophageal reflux disease, bicuspid aortic valve with significant regurgitation, status post hernia surgery, tonsillectomy. Please refer to Dr. Mullins's detailed note that is available within the last 4 to 6 weeks. On examination, his blood pressure is 114/68, pulse rate is 70 per minute, sinus. HEENT unremarkable. Fundus was not examined by me. Neck is supple. There is no JVD. Heart exam reveals S1, S2 with a short systolic murmur. Lungs reveal fairly decent air entry. Abdomen is soft. Rest of physical examination is unremarkable. IMPRESSION: 1. Status post aortic valve replacement with tissue valve recovering nicely. 2. History of bicuspid aortic valve in the past without any evidence of ascending aortic aneurysm. RECOMMENDATIONS: I recommend that we continue current medications, incentive spirometry and pulmonary toilet and based on his progress. I will make further recommendations. Thank you very much for the consult.
[2016-10-06 04:20] LABS: Glucose,Whole Blood 114 mg/dL (75-99)
[2016-10-06 04:20] LABS: Glucose,Whole Blood 114 mg/dL (75-99)
[2016-10-06 04:20] LABS: Glucose,Whole Blood 113 mg/dL (75-99)
[2016-10-06 04:21] LABS: Glucose,Whole Blood 113 mg/dL (75-99)
[2016-10-06 04:56] LABS: ALT 37 U/L (21-72); AST 49 U/L (17-59); Alkaline Phosphatase 27 U/L (38-126); Anion Gap 6 mmol/L; Blood Urea Nitrogen 15 mg/dL (9-20); Calcium 7.8 mg/dL (8.4-10.2); Carbon Dioxide 24 mmol/L (22-30); Chloride 104 mmol/L (98-107); Glucose 97 mg/dL (74-99); Magnesium 1.9 mg/dL (1.6-2.3); Non-African American GFR(MDRD) >60 (>60 ml/min/1.73 sqM); Potassium 3.8 mmol/L (3.5-5.1); Sodium 134 mmol/L (137-145); Total Bilirubin 0.6 mg/dL (0.2-1.3); Total Protein 5.2 g/dL (6.3-8.2)
[2016-10-06 05:02] LABS: Basophils # (A) 0.1 k/uL (0-0.2); Basophils % (A) 0 %; CH 30.7; CHCM 35.6; Eosinophils # (A) 0.2 k/uL (0-0.7); Eosinophils % (A) 1 %; HCT 31.7 % (39.0-53.0); HDW 3.01; HGB 11.8 gm/dL (13.0-17.5); Luc # (Auto) 0.28; Luc % (Auto) 2; Lymphocytes # (A) 2.8 k/uL (1.0-4.8); Lymphocytes % (A) 17 %; MCH 32.2 pg (25.0-35.0); MCHC 37.2 g/dL (31.0-37.0); MCV 86.7 fL (80.0-100.0); Mean Platelet Volume 7.9; Monocytes % (A) 6 %; Neutrophils # (A) 11.7 k/uL (1.3-7.7); Neutrophils % (A) 73 %; RBC 3.66 m/uL (4.30-5.90); WBC (Perox) 17.58
[2016-10-06 05:04] LABS: Ionized Calcium 4.6 mg/dL (4.5-5.3)
[2016-10-06 05:09] LABS: INR 1.1 (<1.1); Prothrombin Time 10.9 sec (9.0-12.0)
[2016-10-06] MEDS ORDERED: Potassium Replacement Protocol 1 EACH MISC MISCELLANE PRN (05:26)
[2016-10-06] MEDS ORDERED: POTASSIUM CHLORIDE ER 20 MEQ TAB.ER PO SCH (06:00)
[2016-10-06 06:26] LABS: Glucose,Whole Blood 105 mg/dL (75-99)
[2016-10-06 07:02] LABS: Glucose,Whole Blood 138 mg/dL (75-99)
[2016-10-06 08:06] LABS: Glucose,Whole Blood 127 mg/dL (75-99)
[2016-10-06] MEDS: IPRATROPIUM-ALBUTEROL 3 ML NEB INHALATION PRN ×3 (08:07→15:54)
[2016-10-06] MEDS ORDERED: HYDROcodone/APAP 7.5-325MG 1 EACH TAB PO PRN (08:22)
[2016-10-06] MEDS ORDERED: FUROSEMIDE 10 MG/ML 2 ML VIAL IV ONE (08:44)
[2016-10-06] MEDS: HEPARIN SODIUM,PORCINE 5,000 UNIT/ML 1 ML VIAL SQ SCH ×3 (08:48→16:30)
[2016-10-06] MEDS: PANTOPRAZOLE 40 MG TABLET PO SCH (08:48)
[2016-10-06] MEDS: ATORVASTATIN 40 MG TAB PO SCH (08:49)
[2016-10-06] MEDS: CLOPIDOGREL 75 MG TAB PO SCH (08:49)
[2016-10-06] MEDS: ASPIRIN 325 MG TAB PO SCH (08:49)
[2016-10-06] MEDS: METOPROLOL TARTRATE 50 MG TAB PO SCH ×2 (08:49→21:24)
[2016-10-06] MEDS: SERTRALINE 100 MG TAB PO SCH (08:49)
[2016-10-06 09:15] LABS: Glucose,Whole Blood 121 mg/dL (75-99)
--- NOTE | 2016-10-06 09:25 | XR ---
EXAMINATION TYPE: XR chest 1V portable DATE OF EXAM: 10/06/2016 6:59 AM HISTORY: Post Operative Cardiac Surgery. REFERENCE: Previous study dated 10/05/2016. FINDINGS: There has been a midline sternotomy. A left pleural drain remains in place. The heart is enlarged. There is improved aeration at the left lung base. There is some atelectatic ch toya at the left lung base. I suspect a small left effusion. IMPRESSION: IMPROVED AERATION, LEFT LUNG BASE.
--- NOTE | 2016-10-06 10:14 | P.PN ---
Subjective Principal diagnosis: Status post valve replacement. This is a 46-year-old white male essentially postop day #2 for valve replacement. He is doing quite well and sitting in a chair. He states pain is fairly well controlled. No significant new complaints. No Chest pain. Some congestive cough is noted. Objective - Vital Signs Vital signs: Vital Signs Temp 98.0 F 10/06/16 08:00 Pulse 69 10/06/16 09:00 Resp 14 10/06/16 09:00 BP 114/66 10/05/16 20:00 Pulse Ox 95 10/06/16 09:00 Intake & Output 10/05/16 10/06/16 10/06/16 18:59 06:59 18:59 Intake Total 690.882 674.358 123.995 Output Total 1730 925 180 Balance -1039.118 -250.642 -56.005 Weight 125.8 kg Intake: IV 340 266 78 Lactated Ringers 1,000 ml 340 200 60 @ 20 mls/hr IV .Q24H ABHIJIT Rx#:[id number] Pressure Bag 66 18 Intake, IV Titration 350.882 408.358 45.995 Amount Clevidipine Butyrate 25 284 397.5 mg In Empty Bag 1 bag @ 1 MG/HR 2 mls/hr IV .Q24H AB[facility]JIT Rx#:[id number] Insulin Regular 100 unit 66.882 10.858 45.995 In Sodium Chloride 0.9% 100 ml @ Per Protocol IV .Q0M ABHIJIT Rx#:[id number] Output: Chest Tube Drainage 330 240 40 Chest Tube Left Pleural/ 330 240 40 Mediastinal Urine 1400 685 140 Other: Voiding Method Indwelling Catheter Indwelling Catheter # Bowel Movements 0 0 ABP, PAP, CO, CI - Last Documented Arterial Blood Pressure 130/57 Pulmonary Artery Pressure 31/19 Cardiac Output 8.2 Cardiac Index 3.5 - Constitutional General appearance: Present: obese - EENT Eyes: Absent: abnormal pupil - Neck Thyroid: bilateral: normal size - Respiratory Respiratory: bilateral: rales - Cardiovascular Rhythm: regular Heart sounds: normal: S1, S2 - Gastrointestinal General gastrointestinal: Present: soft. Absent: tenderness - Labs CBC & Chem 7: 10/06/16 04:18 10/06/16 04:18 Labs: Abnormal Lab Results - Last 24 Hours (Table) 10/05/16 10/05/1617 Range/Units 10:07 11:52 13:25 WBC (3.8-10.6) k/uL RBC (4.30-5.90) m/uL Hgb (13.0-17.5) gm/dL Hct (39.0-53.0) % MCHC (31.0-37.0) g/dL Plt Count (150-450) k/uL Neutrophils # (1.3-7.7) k/uL Sodium (137-145) mmol/L POC Glucose (mg/dL) 134 H 127 H 116 H (75-99) mg/dL Calcium (8.4-10.2) mg/dL Alkaline Phosphatase (38-126) U/L Total Protein (6.3-8.2) g/dL Albumin (3.5-5.0) g/dL 10/05/16 10/05/16 10/05/16 Range/Units 16:13 17:17 18:16 WBC (3.8-10.6) k/uL RBC (4.30-5.90) m/uL Hgb (13.0-17.5) gm/dL Hct (39.0-53.0) % MCHC (31.0-37.0) g/dL Plt Count (150-450) k/uL Neutrophils # (1.3-7.7) k/uL Sodium (137-145) mmol/L POC Glucose (mg/dL) 140 H 162 H 110 H (75-99) mg/dL Calcium (8.4-10.2) mg/dL Alkaline Phosphatase (38-126) U/L Total Protein (6.3-8.2) g/dL Albumin (3.5-5.0) g/dL 10/05/16 10/05/16 10/05/16 Range/Units 19:21 20:16 21:03 WBC (3.8-10.6) k/uL RBC (4.30-5.90) m/uL Hgb (13.0-17.5) gm/dL Hct (39.0-53.0) % MCHC (31.0-37.0) g/dL Plt Count (150-450) k/uL Neutrophils # (1.3-7.7) k/uL Sodium (137-145) mmol/L POC Glucose (mg/dL) 131 H 116 H 112 H (75-99) mg/dL Calcium (8.4-10.2) mg/dL Alkaline Phosphatase (38-126) U/L Total Protein (6.3-8.2) g/dL Albumin (3.5-5.0) g/dL 10/05/16 10/05/16 10/06/16 Range/Units 22:03 23:25 01:18 WBC (3.8-10.6) k/uL RBC (4.30-5.90) m/uL Hgb (13.0-17.5) gm/dL Hct (39.0-53.0) % MCHC (31.0-37.0) g/dL Plt Count (150-450) k/uL Neutrophils # (1.3-7.7) k/uL Sodium (137-145) mmol/L POC Glucose (mg/dL) 126 H 114 H 114 H (75-99) mg/dL Calcium (8.4-10.2) mg/dL Alkaline Phosphatase (38-126) U/L Total Protein (6.3-8.2) g/dL Albumin (3.5-5.0) g/dL 10/06/16 10/06/16 10/06/16 Range/Units 02:38 04:14 04:18 WBC (3.8-10.6) k/uL RBC (4.30-5.90) m/uL Hgb (13.0-17.5) gm/dL Hct (39.0-53.0) % MCHC (31.0-37.0) g/dL Plt Count (150-450) k/uL Neutrophils # (1.3-7.7) k/uL Sodium 134 L (137-145) mmol/L POC Glucose (mg/dL) 113 H 113 H (75-99) mg/dL Calcium 7.8 L (8.4-10.2) mg/dL Alkaline Phosphatase 27 L (38-126) U/L Total Protein 5.2 L (6.3-8.2) g/dL Albumin 2.8 L (3.5-5.0) g/dL 10/06/16 10/06/16 10/06/16 Range/Units 04:18 06:24 07:01 WBC 16.0 H (3.8-10.6) k/uL RBC 3.66 L (4.30-5.90) m/uL Hgb 11.8 L (13.0-17.5) gm/dL Hct 31.7 L (39.0-53.0) % MCHC 37.2 H (31.0-37.0) g/dL Plt Count 121 L (150-450) k/uL Neutrophils # 11.7 H (1.3-7.7) k/uL Sodium (137-145) mmol/L POC Glucose (mg/dL) 105 H 138 H (75-99) mg/dL Calcium (8.4-10.2) mg/dL Alkaline Phosphatase (38-126) U/L Total Protein (6.3-8.2) g/dL Albumin (3.5-5.0) g/dL 10/06/16 10/06/16 Range/Units 08:04 09:14 WBC (3.8-10.6) k/uL RBC (4.30-5.90) m/uL Hgb (13.0-17.5) gm/dL Hct (39.0-53.0) % MCHC (31.0-37.0) g/dL Plt Count (150-450) k/uL Neutrophils # (1.3-7.7) k/uL Sodium (137-145) mmol/L POC Glucose (mg/dL) 127 H 121 H (75-99) mg/dL Calcium (8.4-10.2) mg/dL Alkaline Phosphatase (38-126) U/L Total Protein (6.3-8.2) g/dL Albumin (3.5-5.0) g/dL Assessment and Plan (1) Status post aortic valve replacement with bioprosthetic valve Status: Acute (2) Cannabis abuse, daily use Status: Acute (3) Hypertriglyceridemia Status: Acute (4) Severe aortic insufficiency Status: Acute Plan: We'll continue to follow. Dr. Owens's group will be covering for the weekend/ holiday. Check CBC and CPK in a.m. Hopefully we can transfer to [facility] in the next 24-48 hours. Time with Patient: Less than 30
[2016-10-06 10:20] LABS: Glucose,Whole Blood 125 mg/dL (75-99)
[2016-10-06] MEDS: MAGNESIUM SULFATE-D5W PMX 1 GM in DEXTROSE/WATER 1 100ML.BAG IVPB SCH ×2 (10:40→11:54)
[2016-10-06 11:13] LABS: Glucose,Whole Blood 125 mg/dL (75-99)
--- NOTE | 2016-10-06 11:34 | P.PN ---
<Shey Myers - Last Filed: 10/06/16 11:23> Subjective Principal diagnosis: Severe aortic regurgitation. POD #2 aortic valve replacement, transesophageal echocardiogram. Currently sitting up in a recliner in no apparent distress. States pain is well -controlled. Objective - Vital Signs Vital signs: Vital Signs Temp 98.0 F 10/06/16 08:00 Pulse 78 10/06/16 11:17 Resp 20 10/06/16 11:00 BP 114/66 10/05/16 20:00 Pulse Ox 93 L 10/06/16 11:19 Intake & Output 10/05/16 10/06/16 10/06/16 18:59 06:59 18:59 Intake Total 690.882 674.358 225.995 Output Total 1730 925 355 Balance -1039.118 -250.642 -129.005 Weight 125.8 kg Intake: IV 340 266 130 Lactated Ringers 1,000 ml 340 200 100 @ 20 mls/hr IV .Q24H [facility] Rx#:[id number] Pressure Bag 66 30 Intake, IV Titration 350.882 408.358 95.995 Amount Clevidipine Butyrate 25 284 397.5 50 mg In Empty Bag 1 bag @ 1 MG/HR 2 mls/hr IV .Q24H [facility] Rx#:[id number] Insulin Regular 100 unit 66.882 10.858 45.995 In Sodium Chloride 0.9% 100 ml @ Per Protocol IV .Q0M [facility]IT Rx#:[id number] Output: Chest Tube Drainage 330 240 60 Chest Tube Left Pleural/ 330 240 60 Mediastinal Urine 1400 685 295 Other: Voiding Method Indwelling Catheter Indwelling Catheter # Bowel Movements 0 0 ABP, PAP, CO, CI - Last Documented Arterial Blood Pressure 121/57 Pulmonary Artery Pressure 31/19 Cardiac Output 8.2 Cardiac Index 3.5 - Constitutional General appearance: Present: cooperative, no acute distress - Respiratory Details: Lungs sounds diminished bilaterally. Respirations even, nonlabored. Currently on 10 L high flow oxygen. Able to achieve 1250 mL on incentive spirometry. Effective cough. Combined mediastinal, left pleural chest tube to -20 cm wall suction, drained 110 mL in the last 8 hours, 525 mL in the last 24 hours. - Cardiovascular Details: S1, S2 present. Regular rate and rhythm, normal sinus rhythm on telemetry. Sternum stable. A/V epicardial pacer wires in place, connected to generator, generator turned off. Heart hugger in place with patient demonstrating appropriate use. No edema present. Teds/SCDs present. - Gastrointestinal Gastrointestinal Comment(s): Abdomen soft, nontender, nondistended. Active bowel sounds 4 quadrants. Positive flatus, negative BM. Tolerating diet. - Genitourinary Genitourinary Comment(s): Amaya present draining clear, yellow urine. Approximately 50 mL/h urine output. - Integumentary Integumentary Comment(s): Anterior chest incision covered with dry intact silver dressing. - Musculoskeletal Musculoskeletal: Present: gait normal, strength equal bilaterally - Psychiatric Psychiatric: Present: A&O x's 3, appropriate affect, intact judgment & insight - Allied health notes Allied health notes reviewed: nursing - Labs CBC & Chem 7: 10/06/16 04:18 10/06/16 04:18 Labs: Abnormal Lab Results - Last 24 Hours (Table) 10/05/16 10/05/16 10/05/16 Range/Units 11:52 13:25 16:13 WBC (3.8-10.6) k/uL RBC (4.30-5.90) m/uL Hgb (13.0-17.5) gm/dL Hct (39.0-53.0) % MCHC (31.0-37.0) g/dL Plt Count (150-450) k/uL Neutrophils # (1.3-7.7) k/uL Sodium (137-145) mmol/L POC Glucose (mg/dL) 127 H 116 H 140 H (75-99) mg/dL Calcium (8.4-10.2) mg/dL Alkaline Phosphatase (38-126) U/L Total Protein (6.3-8.2) g/dL Albumin (3.5-5.0) g/dL 10/05/16 10/05/16 10/05/16 Range/Units 17:17 18:16 19:21 WBC (3.8-10.6) k/uL RBC (4.30-5.90) m/uL Hgb (13.0-17.5) gm/dL Hct (39.0-53.0) % MCHC (31.0-37.0) g/dL Plt Count (150-450) k/uL Neutrophils # (1.3-7.7) k/uL Sodium (137-145) mmol/L POC Glucose (mg/dL) 162 H 110 H 131 H (75-99) mg/dL Calcium (8.4-10.2) mg/dL Alkaline Phosphatase (38-126) U/L Total Protein (6.3-8.2) g/dL Albumin (3.5-5.0) g/dL 10/05/16 10/05/16 10/05/16 Range/Units 20:16 21:03 22:03 WBC (3.8-10.6) k/uL RBC (4.30-5.90) m/uL Hgb (13.0-17.5) gm/dL Hct (39.0-53.0) % MCHC (31.0-37.0) g/dL Plt Count (150-450) k/uL Neutrophils # (1.3-7.7) k/uL Sodium (137-145) mmol/L POC Glucose (mg/dL) 116 H 112 H 126 H (75-99) mg/dL Calcium (8.4-10.2) mg/dL Alkaline Phosphatase (38-126) U/L Total Protein (6.3-8.2) g/dL Albumin (3.5-5.0) g/dL 10/05/16 10/06/16 10/06/16 Range/Units 23:25 01:18 02:38 WBC (3.8-10.6) k/uL RBC (4.30-5.90) m/uL Hgb (13.0-17.5) gm/dL Hct (39.0-53.0) % MCHC (31.0-37.0) g/dL Plt Count (150-450) k/uL Neutrophils # (1.3-7.7) k/uL Sodium (137-145) mmol/L POC Glucose (mg/dL) 114 H 114 H 113 H (75-99) mg/dL Calcium (8.4-10.2) mg/dL Alkaline Phosphatase (38-126) U/L Total Protein (6.3-8.2) g/dL Albumin (3.5-5.0) g/dL 10/06/16 10/06/16 10/06/16 Range/Units 04:14 04:18 04:18 WBC 16.0 H (3.8-10.6) k/uL RBC 3.66 L (4.30-5.90) m/uL Hgb 11.8 L (13.0-17.5) gm/dL Hct 31.7 L (39.0-53.0) % MCHC 37.2 H (31.0-37.0) g/dL Plt Count 121 L (150-450) k/uL Neutrophils # 11.7 H (1.3-7.7) k/uL Sodium 134 L (137-145) mmol/L POC Glucose (mg/dL) 113 H (75-99) mg/dL Calcium 7.8 L (8.4-10.2) mg/dL Alkaline Phosphatase 27 L (38-126) U/L Total Protein 5.2 L (6.3-8.2) g/dL Albumin 2.8 L (3.5-5.0) g/dL 10/06/16 10/06/16 10/06/16 Range/Units 06:24 07:01 08:04 WBC (3.8-10.6) k/uL RBC (4.30-5.90) m/uL Hgb (13.0-17.5) gm/dL Hct (39.0-53.0) % MCHC (31.0-37.0) g/dL Plt Count (150-450) k/uL Neutrophils # (1.3-7.7) k/uL Sodium (137-145) mmol/L POC Glucose (mg/dL) 105 H 138 H 127 H (75-99) mg/dL Calcium (8.4-10.2) mg/dL Alkaline Phosphatase (38-126) U/L Total Protein (6.3-8.2) g/dL Albumin (3.5-5.0) g/dL 10/06/16 10/06/16 10/06/16 Range/Units 09:14 10:02 11:12 WBC (3.8-10.6) k/uL RBC (4.30-5.90) m/uL Hgb (13.0-17.5) gm/dL Hct (39.0-53.0) % MCHC (31.0-37.0) g/dL Plt Count (150-450) k/uL Neutrophils # (1.3-7.7) k/uL Sodium (137-145) mmol/L POC Glucose (mg/dL) 121 H 125 H 125 H (75-99) mg/dL Calcium (8.4-10.2) mg/dL Alkaline Phosphatase (38-126) U/L Total Protein (6.3-8.2) g/dL Albumin (3.5-5.0) g/dL - Imaging and Cardiology Chest x-ray: report reviewed, image reviewed Assessment and Plan (1) Status post aortic valve replacement with bioprosthetic valve Status: Acute (2) Bicuspid aortic valve Status: Acute (3) Cannabis abuse, daily use Status: Acute (4) Family history of early CAD Status: Acute (5) Hypertriglyceridemia Status: Acute (6) Quit smoking within past year Status: Acute Plan: 1. Continue aspirin, Lipitor, Plavix, heparin, Lopressor. 2. Lisinopril added, increased today. Wean off Cleviprex as able. 3. Encourage incentive spirometry use, pulmonary toileting. 4. Increase activity, out of bed to chair. PT to follow. 5. Lasix 20 mg IV push 1 given today. Will DC Jose Luis today. 6. GI/DVT prophylaxis. 7. Daily labs, x-rays. 8. More recommendations as patient progresses. Hopefully transfer to [facility] tomorrow. Time with Patient: Greater than 30 <Jed Ba - Last Filed: 10/06/16 16:44> Objective - Vital Signs Vital signs: Vital Signs Temp 98.0 F 10/06/16 12:00 Pulse 68 10/06/16 15:57 Resp 27 H 10/06/16 13:00 BP 114/66 10/05/16 20:00 Pulse Ox 96 10/06/16 13:00 Intake & Output 10/05/16 10/06/16 10/06/16 18:59 06:59 18:59 Intake Total 690.882 674.358 295.462 Output Total 1710 235 785 Balance -1039.118 -250.642 -489.538 Weight 125.8 kg 125.8 kg Intake: IV 340 266 182 Lactated Ringers 1,000 ml 340 200 140 @ 20 mls/hr IV .Q24H [facility]IT Rx#:[id number] Pressure Bag 66 42 Intake, IV Titration 350.882 408.358 113.462 Amount Clevidipine Butyrate 25 284 397.5 50 mg In Empty Bag 1 bag @ 1 MG/HR 2 mls/hr IV .Q24H [facility] Rx#:[id number] Insulin Regular 100 unit 66.882 10.858 63.462 In Sodium Chloride 0.9% 100 ml @ Per Protocol IV .Q0M [facility]JIT Rx#:[id number] Output: Chest Tube Drainage 330 240 80 Chest Tube Left Pleural/ 330 240 80 Mediastinal Urine 1400 685 705 Other: Voiding Method Indwelling Catheter Indwelling Catheter Indwelling Catheter # Bowel Movements 0 0 ABP, PAP, CO, CI - Last Documented Arterial Blood Pressure 131/68 Pulmonary Artery Pressure 31/19 Cardiac Output 8.2 Cardiac Index 3.5 - Labs CBC & Chem 7: 10/06/16 04:18 10/06/16 04:18 Labs: Abnormal Lab Results - Last 24 Hours (Table) 10/05/16 10/05/16 10/05/16 Range/Units 17:17 18:16 19:21 WBC (3.8-10.6) k/uL RBC (4.30-5.90) m/uL Hgb (13.0-17.5) gm/dL Hct (39.0-53.0) % MCHC (31.0-37.0) g/dL Plt Count (150-450) k/uL Neutrophils # (1.3-7.7) k/uL Sodium (137-145) mmol/L POC Glucose (mg/dL) 162 H 110 H 131 H (75-99) mg/dL Calcium (8.4-10.2) mg/dL Alkaline Phosphatase (38-126) U/L Total Protein (6.3-8.2) g/dL Albumin (3.5-5.0) g/dL 10/05/16 10/05/16 10/05/16 Range/Units 20:16 21:03 22:03 WBC (3.8-10.6) k/uL RBC (4.30-5.90) m/uL Hgb (13.0-17.5) gm/dL Hct (39.0-53.0) % MCHC (31.0-37.0) g/dL Plt Count (150-450) k/uL Neutrophils # (1.3-7.7) k/uL Sodium (137-145) mmol/L POC Glucose (mg/dL) 116 H 112 H 126 H (75-99) mg/dL Calcium (8.4-10.2) mg/dL Alkaline Phosphatase (38-126) U/L Total Protein (6.3-8.2) g/dL Albumin (3.5-5.0) g/dL 10/05/16 10/06/16 10/06/16 Range/Units 23:25 01:18 02:38 WBC (3.8-10.6) k/uL RBC (4.30-5.90) m/uL Hgb (13.0-17.5) gm/dL Hct (39.0-53.0) % MCHC (31.0-37.0) g/dL Plt Count (150-450) k/uL Neutrophils # (1.3-7.7) k/uL Sodium (137-145) mmol/L POC Glucose (mg/dL) 114 H 114 H 113 H (75-99) mg/dL Calcium (8.4-10.2) mg/dL Alkaline Phosphatase (38-126) U/L Total Protein (6.3-8.2) g/dL Albumin (3.5-5.0) g/dL 10/06/16 10/06/16 10/06/16 Range/Units 04:14 04:18 04:18 WBC 16.0 H (3.8-10.6) k/uL RBC 3.66 L (4.30-5.90) m/uL Hgb 11.8 L (13.0-17.5) gm/dL Hct 31.7 L (39.0-53.0) % MCHC 37.2 H (31.0-37.0) g/dL Plt Count 121 L (150-450) k/uL Neutrophils # 11.7 H (1.3-7.7) k/uL Sodium 134 L (137-145) mmol/L POC Glucose (mg/dL) 113 H (75-99) mg/dL Calcium 7.8 L (8.4-10.2) mg/dL Alkaline Phosphatase 27 L (38-126) U/L Total Protein 5.2 L (6.3-8.2) g/dL Albumin 2.8 L (3.5-5.0) g/dL 10/06/16 10/06/16 10/06/16 Range/Units 06:24 07:01 08:04 WBC (3.8-10.6) k/uL RBC (4.30-5.90) m/uL Hgb (13.0-17.5) gm/dL Hct (39.0-53.0) % MCHC (31.0-37.0) g/dL Plt Count (150-450) k/uL Neutrophils # (1.3-7.7) k/uL Sodium (137-145) mmol/L POC Glucose (mg/dL) 105 H 138 H 127 H (75-99) mg/dL Calcium (8.4-10.2) mg/dL Alkaline Phosphatase (38-126) U/L Total Protein (6.3-8.2) g/dL Albumin (3.5-5.0) g/dL 10/06/16 10/06/16 10/06/16 Range/Units 09:14 10:02 11:12 WBC (3.8-10.6) k/uL RBC (4.30-5.90) m/uL Hgb (13.0-17.5) gm/dL Hct (39.0-53.0) % MCHC (31.0-37.0) g/dL Plt Count (150-450) k/uL Neutrophils # (1.3-7.7) k/uL Sodium (137-145) mmol/L POC Glucose (mg/dL) 121 H 125 H 125 H (75-99) mg/dL Calcium (8.4-10.2) mg/dL Alkaline Phosphatase (38-126) U/L Total Protein (6.3-8.2) g/dL Albumin (3.5-5.0) g/dL 10/06/16 10/06/16 10/06/16 Range/Units 11:57 13:05 13:59 WBC (3.8-10.6) k/uL RBC (4.30-5.90) m/uL Hgb (13.0-17.5) gm/dL Hct (39.0-53.0) % MCHC (31.0-37.0) g/dL Plt Count (150-450) k/uL Neutrophils # (1.3-7.7) k/uL Sodium (137-145) mmol/L POC Glucose (mg/dL) 123 H 115 H 116 H (75-99) mg/dL Calcium (8.4-10.2) mg/dL Alkaline Phosphatase (38-126) U/L Total Protein (6.3-8.2) g/dL Albumin (3.5-5.0) g/dL 10/06/16 10/06/16 Range/Units 15:01 16:13 WBC (3.8-10.6) k/uL RBC (4.30-5.90) m/uL Hgb (13.0-17.5) gm/dL Hct (39.0-53.0) % MCHC (31.0-37.0) g/dL Plt Count (150-450) k/uL Neutrophils # (1.3-7.7) k/uL Sodium (137-145) mmol/L POC Glucose (mg/dL) 120 H 111 H (75-99) mg/dL Calcium (8.4-10.2) mg/dL Alkaline Phosphatase (38-126) U/L Total Protein (6.3-8.2) g/dL Albumin (3.5-5.0) g/dL Assessment and Plan Plan: The patient was seen and examined. I agree with the above assessment and plan. He was extubated yesterday and has now weaned to nasal cannula. He ambulated in the hallway without difficulty. His Cleviprex has been weaned off and he is currently hemodynamically stable. He was given Lasix today. He'll likely be transferred to selective care tomorrow.
[2016-10-06 12:00] LABS: Glucose,Whole Blood 123 mg/dL (75-99)
[2016-10-06] MEDS ORDERED: LISINOPRIL 10 MG TAB PO SCH (12:00)
--- NOTE | 2016-10-06 12:04 | PN ---
Mr. Bolanos is a patient who is status post aortic valve replacement with a tissue valve for a bicuspid valve with significant ( ). He is doing well this morning, his drips are almost off. His blood pressure is 120/70. I am starting him on a small dose of lisinopril. He is in a sinus rhythm, S1, S2 with a short systolic murmur at the base is audible. Lungs reveal improved air entry. Abdomen and lower extremity exam is unchanged. Plan is to continue current medications, incentive spirometry and pulmonary toilet. Based on clinical course, I will make further recommendations.
[2016-10-06] MEDS: LISINOPRIL 5 MG TAB PO SCH ×2 (12:28→21:24)
[2016-10-06 13:07] LABS: Glucose,Whole Blood 115 mg/dL (75-99)
[2016-10-06 14:01] LABS: Glucose,Whole Blood 116 mg/dL (75-99)
--- NOTE | 2016-10-06 14:10 | P.PN ---
Subjective Principal diagnosis: Status post aortic valve replacement This is a 46-year-old white male whom I saw on consultation yesterday on 2016, hence the date of this service was on 10/04/2016, patient has been seeing Dr. Francisco for aortic regurgitation and dyslipidemia. He was experiencing intermittent episodes of chest discomfort and exertional dyspnea. Echocardiogram demonstrated bicuspid aortic valve with at least moderate aortic insufficiency. KHANG demonstrated bicuspid aortic valve with fusion of the right and left coronary cusp and severe aortic insufficiency. Patient had extreme dyspnea with any activity. Hence he was seen by cardiac surgery on consultation , and yesterday on 10/04/2016 patient underwent aortic valve replacement postoperatively, patient was on mechanical ventilation, and I was asked to see him on consultation. I saw the patient in the ICU after he was transferred from the OR, I adjusted his ventilator settings, and I plan to wean the patient over a period of a few hours. However the patient could not be weaned last night because of relative hypoxemia, and we kept him on mechanical ventilation until today when I saw him on follow-up. Patient was reevaluated today on 09/23, ABG was noted to be marginal, chest x-ray showed mild interstitial edema, patient was given Lasix earlier, and he was diuresing well. Hence I proceeded to placing the patient on a short trial of pressure support and CPAP with a pressure support of 8, and he was looking quite well clinically, proceeded to extubating the patient and placed on a high flow nasal cannula may require a 50% on a nonrebreather mask. Clinically however the patient looked quite well after extubation, and he had no form of shortness of breath. Reevaluated today on 10/06/2016, patient is doing well, tolerated the extubation well over the last 24 hours. No major issues, he is doing well with incentive spirometry, remains on bronchodilators, chest x-ray is showing significant improvement. All labs were reviewed including CBC and basic metabolic profile Objective - Vital Signs Vital signs: Vital Signs Temp 98.0 F 10/06/16 12:00 Pulse 67 10/06/16 13:00 Resp 27 H 10/06/16 13:00 BP 114/66 10/05/16 20:00 Pulse Ox 96 10/06/16 13:00 Intake & Output 10/05/16 10/06/16 10/06/16 18:59 06:59 18:59 Intake Total 690.882 674.358 277.995 Output Total 1730 925 785 Balance -1039.118 -250.642 -507.005 Weight 125.8 kg 125.8 kg Intake: IV 340 266 182 Lactated Ringers 1,000 ml 340 200 140 @ 20 mls/hr IV .Q24H ABHIJIT Rx#:[id number] Pressure Bag 66 42 Intake, IV Titration 350.882 408.358 95.995 Amount Clevidipine Butyrate 25 284 397.5 50 mg In Empty Bag 1 bag @ 1 MG/HR 2 mls/hr IV .Q24H ABHIJIT Rx#:[id number] Insulin Regular 100 unit 66.882 10.858 45.995 In Sodium Chloride 0.9% 100 ml @ Per Protocol IV .Q0M ABHIJIT Rx#:[id number] Output: Chest Tube Drainage 330 240 80 Chest Tube Left Pleural/ 330 240 80 Mediastinal Urine 1400 685 705 Other: Voiding Method Indwelling Catheter Indwelling Catheter Indwelling Catheter # Bowel Movements 0 0 ABP, PAP, CO, CI - Last Documented Arterial Blood Pressure 131/68 Pulmonary Artery Pressure 31/19 Cardiac Output 8.2 Cardiac Index 3.5 - Exam Physical Exam: Revealed a 56-year-old white male on nasal cannula, in no form of respiratory distress HEENT:[Neck is supple.] [No neck masses.] [No thyromegaly.] [No JVD.] Chest: [Diminished breath sounds at the bases no crackles or rhonchi or wheezes] Cardiac Exam: [Normal S1 and S2, no S3 gallop, no murmur.] Abdomen: [Soft, nontender, no megaly, no rebound, no guarding, normal bowel sounds.] Extremities: [No clubbing, no edema, no cyanosis.] Neurological Exam: [No focal neurologic deficit.] - Labs CBC & Chem 7: 10/06/16 04:18 10/06/16 04:18 Labs: Abnormal Lab Results - Last 24 Hours (Table) 10/05/16 10/05/16 10/05/16 Range/Units 16:13 17:17 18:16 WBC (3.8-10.6) k/uL RBC (4.30-5.90) m/uL Hgb (13.0-17.5) gm/dL Hct (39.0-53.0) % MCHC (31.0-37.0) g/dL Plt Count (150-450) k/uL Neutrophils # (1.3-7.7) k/uL Sodium (137-145) mmol/L POC Glucose (mg/dL) 140 H 162 H 110 H (75-99) mg/dL Calcium (8.4-10.2) mg/dL Alkaline Phosphatase (38-126) U/L Total Protein (6.3-8.2) g/dL Albumin (3.5-5.0) g/dL 10/05/16 10/05/16 10/05/16 Range/Units 19:21 20:16 21:03 WBC (3.8-10.6) k/uL RBC (4.30-5.90) m/uL Hgb (13.0-17.5) gm/dL Hct (39.0-53.0) % MCHC (31.0-37.0) g/dL Plt Count (150-450) k/uL Neutrophils # (1.3-7.7) k/uL Sodium (137-145) mmol/L POC Glucose (mg/dL) 131 H 116 H 112 H (75-99) mg/dL Calcium (8.4-10.2) mg/dL Alkaline Phosphatase (38-126) U/L Total Protein (6.3-8.2) g/dL Albumin (3.5-5.0) g/dL 10/05/16 10/05/16 10/06/16 Range/Units 22:03 23:25 01:18 WBC (3.8-10.6) k/uL RBC (4.30-5.90) m/uL Hgb (13.0-17.5) gm/dL Hct (39.0-53.0) % MCHC (31.0-37.0) g/dL Plt Count (150-450) k/uL Neutrophils # (1.3-7.7) k/uL Sodium (137-145) mmol/L POC Glucose (mg/dL) 126 H 114 H 114 H (75-99) mg/dL Calcium (8.4-10.2) mg/dL Alkaline Phosphatase (38-126) U/L Total Protein (6.3-8.2) g/dL Albumin (3.5-5.0) g/dL 10/06/16 10/06/16 10/06/16 Range/Units 02:38 04:14 04:18 WBC (3.8-10.6) k/uL RBC (4.30-5.90) m/uL Hgb (13.0-17.5) gm/dL Hct (39.0-53.0) % MCHC (31.0-37.0) g/dL Plt Count (150-450) k/uL Neutrophils # (1.3-7.7) k/uL Sodium 134 L (137-145) mmol/L POC Glucose (mg/dL) 113 H 113 H (75-99) mg/dL Calcium 7.8 L (8.4-10.2) mg/dL Alkaline Phosphatase 27 L (38-126) U/L Total Protein 5.2 L (6.3-8.2) g/dL Albumin 2.8 L (3.5-5.0) g/dL 10/06/16 10/06/16 10/06/16 Range/Units 04:18 06:24 07:01 WBC 16.0 H (3.8-10.6) k/uL RBC 3.66 L (4.30-5.90) m/uL Hgb 11.8 L (13.0-17.5) gm/dL Hct 31.7 L (39.0-53.0) % MCHC 37.2 H (31.0-37.0) g/dL Plt Count 121 L (150-450) k/uL Neutrophils # 11.7 H (1.3-7.7) k/uL Sodium (137-145) mmol/L POC Glucose (mg/dL) 105 H 138 H (75-99) mg/dL Calcium (8.4-10.2) mg/dL Alkaline Phosphatase (38-126) U/L Total Protein (6.3-8.2) g/dL Albumin (3.5-5.0) g/dL 10/06/16 10/06/16 10/06/16 Range/Units 08:04 09:14 10:02 WBC (3.8-10.6) k/uL RBC (4.30-5.90) m/uL Hgb (13.0-17.5) gm/dL Hct (39.0-53.0) % MCHC (31.0-37.0) g/dL Plt Count (150-450) k/uL Neutrophils # (1.3-7.7) k/uL Sodium (137-145) mmol/L POC Glucose (mg/dL) 127 H 121 H 125 H (75-99) mg/dL Calcium (8.4-10.2) mg/dL Alkaline Phosphatase (38-126) U/L Total Protein (6.3-8.2) g/dL Albumin (3.5-5.0) g/dL 10/06/16 10/06/16 10/06/16 Range/Units 11:12 11:57 13:05 WBC (3.8-10.6) k/uL RBC (4.30-5.90) m/uL Hgb (13.0-17.5) gm/dL Hct (39.0-53.0) % MCHC (31.0-37.0) g/dL Plt Count (150-450) k/uL Neutrophils # (1.3-7.7) k/uL Sodium (137-145) mmol/L POC Glucose (mg/dL) 125 H 123 H 115 H (75-99) mg/dL Calcium (8.4-10.2) mg/dL Alkaline Phosphatase (38-126) U/L Total Protein (6.3-8.2) g/dL Albumin (3.5-5.0) g/dL 10/06/16 Range/Units 13:59 WBC (3.8-10.6) k/uL RBC (4.30-5.90) m/uL Hgb (13.0-17.5) gm/dL Hct (39.0-53.0) % MCHC (31.0-37.0) g/dL Plt Count (150-450) k/uL Neutrophils # (1.3-7.7) k/uL Sodium (137-145) mmol/L POC Glucose (mg/dL) 116 H (75-99) mg/dL Calcium (8.4-10.2) mg/dL Alkaline Phosphatase (38-126) U/L Total Protein (6.3-8.2) g/dL Albumin (3.5-5.0) g/dL Assessment and Plan Plan: Impression: Status post aortic valve replacement, postoperative day #2 Multiple comorbidities including GERD/reflux, hyperlipidemia, history of migraine cephalgia, and history of osteoarthritis and degenerative disc disease of the cervical spine. Recommendation: Tinea present supportive care measures, continue incentive spirometry and bronchodilators, discussed the findings of the chest x-ray with the patient, there is a small tiny left pleural effusion and otherwise unremarkable. Time with Patient: Less than 30
[2016-10-06 15:03] LABS: Glucose,Whole Blood 120 mg/dL (75-99)
[2016-10-06 16:15] LABS: Glucose,Whole Blood 111 mg/dL (75-99)
[2016-10-06 17:09] LABS: Glucose,Whole Blood 111 mg/dL (75-99)
[2016-10-06] MEDS: LACTATED RINGERS 1,000 ML IV SCH (17:10)
[2016-10-06] MEDS: DIVALPROEX 500 MG TABLET.DR PO SCH (17:26)
[2016-10-06 18:16] LABS: Glucose,Whole Blood 114 mg/dL (75-99)
[2016-10-06 19:02] LABS: Glucose,Whole Blood 133 mg/dL (75-99)
[2016-10-06 20:11] LABS: Glucose,Whole Blood 141 mg/dL (75-99)
[2016-10-06 21:23] LABS: Glucose,Whole Blood 105 mg/dL (75-99)
[2016-10-06] MEDS: SENNOSIDES-DOCUSATE SODIUM 1 EACH TAB PO SCH (21:29)
[2016-10-06] MEDS: clonazePAM 1 MG TAB PO PRN (21:30)
[2016-10-06 22:29] LABS: Glucose,Whole Blood 125 mg/dL (75-99)
[2016-10-06 23:30] LABS: Glucose,Whole Blood 107 mg/dL (75-99)
[2016-10-07 00:30] LABS: Glucose,Whole Blood 54 mg/dL (75-99)
[2016-10-07 00:30] LABS: Glucose,Whole Blood 99 mg/dL (75-99)
[2016-10-07] MEDS: KETOROLAC 30 MG/ML 1 ML VIAL IVP SCH ×5 (00:30→23:06)
[2016-10-07] MEDS: HEPARIN SODIUM,PORCINE 5,000 UNIT/ML 1 ML VIAL SQ SCH ×4 (00:31→23:06)
[2016-10-07 01:18] LABS: Glucose,Whole Blood 116 mg/dL (75-99)
[2016-10-07 02:26] LABS: Glucose,Whole Blood 163 mg/dL (75-99)
[2016-10-07 03:31] LABS: Glucose,Whole Blood 103 mg/dL (75-99)
[2016-10-07 04:14] LABS: Glucose,Whole Blood 95 mg/dL (75-99)
[2016-10-07 04:42] LABS: Basophils # (A) 0.1 k/uL (0-0.2); Basophils % (A) 1 %; CH 30.4; CHCM 35.3; Eosinophils # (A) 0.2 k/uL (0-0.7); Eosinophils % (A) 2 %; HCT 28.3 % (39.0-53.0); HDW 2.97; Luc # (Auto) 0.19; Luc % (Auto) 2; Lymphocytes # (A) 2.4 k/uL (1.0-4.8); Lymphocytes % (A) 26 %; MCH 30.7 pg (25.0-35.0); MCHC 35.4 g/dL (31.0-37.0); MCV 86.6 fL (80.0-100.0); Mean Platelet Volume 8.4; Monocytes # (A) 0.5 k/uL (0-1.0); Monocytes % (A) 6 %; Neutrophils # (A) 6.1 k/uL (1.3-7.7); Neutrophils % (A) 64 %; RBC 3.27 m/uL (4.30-5.90); WBC 9.5 k/uL (3.8-10.6); WBC (Perox) 10.17
[2016-10-07 04:44] LABS: Ionized Calcium 4.8 mg/dL (4.5-5.3)
[2016-10-07 04:49] LABS: Prothrombin Time 9.9 sec (9.0-12.0)
[2016-10-07 05:00] LABS: ALT 32 U/L (21-72); AST 31 U/L (17-59); Alkaline Phosphatase 43 U/L (38-126); Anion Gap 8 mmol/L; Blood Urea Nitrogen 19 mg/dL (9-20); Calcium 8.1 mg/dL (8.4-10.2); Carbon Dioxide 25 mmol/L (22-30); Chloride 106 mmol/L (98-107); Glucose 87 mg/dL (74-99); Magnesium 2.5 mg/dL (1.6-2.3); Non-African American GFR(MDRD) >60 (>60 ml/min/1.73 sqM); Potassium 3.7 mmol/L (3.5-5.1); Sodium 139 mmol/L (137-145); Total Bilirubin 0.3 mg/dL (0.2-1.3); Total Protein 4.7 g/dL (6.3-8.2)
[2016-10-07 05:35] LABS: Glucose,Whole Blood 97 mg/dL (75-99)
[2016-10-07] MEDS ORDERED: Potassium Replacement Protocol 1 EACH MISC MISCELLANE PRN (05:37)
[2016-10-07] MEDS ORDERED: POTASSIUM CHLORIDE ER 20 MEQ TAB.ER PO SCH (06:00)
[2016-10-07 06:57] LABS: Glucose,Whole Blood 102 mg/dL (75-99)
--- NOTE | 2016-10-07 07:52 | XR ---
EXAMINATION TYPE: XR chest 1V portable DATE OF EXAM: 10/07/2016 6:55 AM COMPARISON: Prior chest x-ray 06 October 2016 HISTORY: Postop cardiac surgery TECHNIQUE: Single frontal view of the chest is obtained. FINDINGS: Right jugular central venous sheath, overlying cardiac leads, left chest tube remain in pl [facility]. No evident pneumothorax or sizable effusion. Patchy basilar density and cardiomegaly persists, l aneta volumes are low. There is a median sternal drain in place. IMPRESSION: Similar findings. Cardiomegaly, basilar atelectasis and low lung volume.
[2016-10-07] MEDS: IPRATROPIUM-ALBUTEROL 3 ML NEB INHALATION PRN ×3 (08:08→18:57)
[2016-10-07 08:11] LABS: Glucose,Whole Blood 108 mg/dL (75-99)
[2016-10-07 08:54] LABS: Glucose,Whole Blood 139 mg/dL (75-99)
[2016-10-07] MEDS: CLOPIDOGREL 75 MG TAB PO SCH (09:42)
[2016-10-07] MEDS: PANTOPRAZOLE 40 MG TABLET PO SCH (09:42)
[2016-10-07] MEDS: ASPIRIN 325 MG TAB PO SCH (09:42)
[2016-10-07] MEDS: LISINOPRIL 5 MG TAB PO SCH ×2 (09:42→20:46)
[2016-10-07] MEDS: METOPROLOL TARTRATE 50 MG TAB PO SCH ×2 (09:43→22:22)
[2016-10-07] MEDS: SERTRALINE 100 MG TAB PO SCH (09:43)
[2016-10-07] MEDS: ATORVASTATIN 40 MG TAB PO SCH (09:43)
[2016-10-07 09:51] LABS: Glucose,Whole Blood 116 mg/dL (75-99)
--- NOTE | 2016-10-07 11:02 | P.PN ---
Subjective Principal diagnosis: Severe aortic regurgitation. POD #3 aortic valve replacement, transesophageal echocardiogram. Currently sitting up in a recliner in no apparent distress. States pain is well -controlled. Objective - Vital Signs Vital signs: Vital Signs Temp 98.7 F 10/07/16 04:00 Pulse 69 10/07/16 08:17 Resp 20 10/07/16 07:00 BP 127/74 10/07/16 07:00 Pulse Ox 92 L 10/07/16 07:00 Intake & Output 10/06/16 10/07/16 10/07/16 18:59 06:59 18:59 Intake Total 535.462 760.749 181 Output Total 885 1045 90 Balance -349.538 -284.251 91 Weight 125.8 kg 123.5 kg Intake: IV 422 542 181 Lactated Ringers 1,000 ml 350 470 160 @ 20 mls/hr IV .Q24H ABHIJIT Rx#:[id number] Pressure Bag 72 72 21 Intake, IV Titration 113.462 18.749 Amount Clevidipine Butyrate 25 50 mg In Empty Bag 1 bag @ 1 MG/HR 2 mls/hr IV .Q24H [facility]HIJIT Rx#:[id number] Insulin Regular 100 unit 63.462 18.749 In Sodium Chloride 0.9% 100 ml @ Per Protocol IV .Q0M AB[facility]JIT Rx#:[id number] Oral 200 Output: Chest Tube Drainage 120 170 90 Chest Tube Left Pleural/ 120 170 90 Mediastinal Urine 765 875 Other: Voiding Method Indwelling Catheter Toilet # Bowel Movements 0 0 ABP, PAP, CO, CI - Last Documented Arterial Blood Pressure 127/82 Pulmonary Artery Pressure 31/19 Cardiac Output 8.2 Cardiac Index 3.5 - Constitutional General appearance: Present: cooperative, no acute distress - Respiratory Details: Lungs sounds diminished bilaterally. Respirations even, nonlabored. Currently on 2 L nasal cannula. Able to achieve 2500 mL on incentive spirometry. Chest tube output 120 mL serous fluid in the last 8 hours, 250 mL in the last 24 hours. - Cardiovascular Details: S1, S2 present. Regular rate and rhythm, normal sinus rhythm on telemetry occasional sinus bradycardia in the 50s. Sternum stable. Heart hugger in place with patient demonstrating appropriate use. A/V epicardial pacemaker wires attached to generator which is currently off. Teds/SCDs present. - Gastrointestinal Gastrointestinal Comment(s): Abdomen soft, nontender, nondistended. Active bowel sounds 4 quadrants. Tolerating diet. - Genitourinary Genitourinary Comment(s): Voiding clear, yellow urine per urinal. Output 125-400 mL at a time. - Integumentary Integumentary Comment(s): Anterior chest incision covered with dry intact Silverlon dressing. - Musculoskeletal Musculoskeletal: Present: gait normal, strength equal bilaterally - Psychiatric Psychiatric: Present: A&O x's 3, appropriate affect, intact judgment & insight - Allied health notes Allied health notes reviewed: nursing - Labs CBC & Chem 7: 10/07/16 04:24 10/07/16 04:24 Labs: Abnormal Lab Results - Last 24 Hours (Table) 10/06/16 10/06/16 10/06/16 Range/Units 10:02 11:12 11:57 RBC (4.30-5.90) m/uL Hgb (13.0-17.5) gm/dL Hct (39.0-53.0) % Plt Count (150-450) k/uL POC Glucose (mg/dL) 125 H 125 H 123 H (75-99) mg/dL Calcium (8.4-10.2) mg/dL Magnesium (1.6-2.3) mg/dL Total Protein (6.3-8.2) g/dL Albumin (3.5-5.0) g/dL 10/06/16 10/06/16 10/06/16 Range/Units 13:05 13:59 15:01 RBC (4.30-5.90) m/uL Hgb (13.0-17.5) gm/dL Hct (39.0-53.0) % Plt Count (150-450) k/uL POC Glucose (mg/dL) 115 H 116 H 120 H (75-99) mg/dL Calcium (8.4-10.2) mg/dL Magnesium (1.6-2.3) mg/dL Total Protein (6.3-8.2) g/dL Albumin (3.5-5.0) g/dL 10/06/16 10/06/16 10/06/16 Range/Units 16:13 17:07 18:14 RBC (4.30-5.90) m/uL Hgb (13.0-17.5) gm/dL Hct (39.0-53.0) % Plt Count (150-450) k/uL POC Glucose (mg/dL) 111 H 111 H 114 H (75-99) mg/dL Calcium (8.4-10.2) mg/dL Magnesium (1.6-2.3) mg/dL Total Protein (6.3-8.2) g/dL Albumin (3.5-5.0) g/dL 10/06/16 10/06/16 10/06/16 Range/Units 19:00 20:09 21:20 RBC (4.30-5.90) m/uL Hgb (13.0-17.5) gm/dL Hct (39.0-53.0) % Plt Count (150-450) k/uL POC Glucose (mg/dL) 133 H 141 H 105 H (75-99) mg/dL Calcium (8.4-10.2) mg/dL Magnesium (1.6-2.3) mg/dL Total Protein (6.3-8.2) g/dL Albumin (3.5-5.0) g/dL 10/06/16 10/06/16 10/07/16 Range/Units 22:28 23:28 00:25 RBC (4.30-5.90) m/uL Hgb (13.0-17.5) gm/dL Hct (39.0-53.0) % Plt Count (150-450) k/uL POC Glucose (mg/dL) 125 H 107 H 54 L (75-99) mg/dL Calcium (8.4-10.2) mg/dL Magnesium (1.6-2.3) mg/dL Total Protein (6.3-8.2) g/dL Albumin (3.5-5.0) g/dL 10/07/16 10/07/16 10/07/16 Range/Units 01:17 02:24 03:30 RBC (4.30-5.90) m/uL Hgb (13.0-17.5) gm/dL Hct (39.0-53.0) % Plt Count (150-450) k/uL POC Glucose (mg/dL) 116 H 163 H 103 H (75-99) mg/dL Calcium (8.4-10.2) mg/dL Magnesium (1.6-2.3) mg/dL Total Protein (6.3-8.2) g/dL Albumin (3.5-5.0) g/dL 10/07/16 10/07/16 10/07/16 Range/Units 04:24 04:24 06:55 RBC 3.27 L (4.30-5.90) m/uL Hgb 10.0 L D (13.0-17.5) gm/dL Hct 28.3 L (39.0-53.0) % Plt Count 118 L (150-450) k/uL POC Glucose (mg/dL) 102 H (75-99) mg/dL Calcium 8.1 L (8.4-10.2) mg/dL Magnesium 2.5 H (1.6-2.3) mg/dL Total Protein 4.7 L (6.3-8.2) g/dL Albumin 2.7 L (3.5-5.0) g/dL 10/07/16 10/07/16 Range/Units 08:10 08:52 RBC (4.30-5.90) m/uL Hgb (13.0-17.5) gm/dL Hct (39.0-53.0) % Plt Count (150-450) k/uL POC Glucose (mg/dL) 108 H 139 H (75-99) mg/dL Calcium (8.4-10.2) mg/dL Magnesium (1.6-2.3) mg/dL Total Protein (6.3-8.2) g/dL Albumin (3.5-5.0) g/dL - Imaging and Cardiology Chest x-ray: report reviewed, image reviewed Assessment and Plan (1) Status post aortic valve replacement with bioprosthetic valve Status: Acute (2) Bicuspid aortic valve Status: Acute (3) Cannabis abuse, daily use Status: Acute (4) Family history of early CAD Status: Acute (5) Hypertriglyceridemia Status: Acute (6) Quit smoking within past year Status: Acute Plan: 1. Continue aspirin, Lipitor, Plavix, heparin, Lopressor, lisinopril 2. Encourage incentive spirometry use, pulmonary toileting 3. Replace potassium per protocol. 4. Increase activity, out of bed to chair. PT to follow. 5. Will DC chest tubes, A-line, Cordis today. 6. Insulin management per primary care service. 7. GI/DVT prophylaxis. 8. Daily labs, x-rays. 9. Likely transfer to [facility] today. Time with Patient: Greater than 30
[2016-10-07 11:08] LABS: Glucose,Whole Blood 128 mg/dL (75-99)
[2016-10-07] MEDS: HYDROcodone/APAP 7.5-325MG 1 EACH TAB PO PRN ×2 (11:13→20:47)
[2016-10-07 12:10] LABS: Glucose,Whole Blood 116 mg/dL (75-99)
[2016-10-07 12:27] LABS: Glucose,Whole Blood 110 mg/dL (75-99)
--- NOTE | 2016-10-07 12:33 | P.PN ---
Subjective Principal diagnosis: Status post aortic valve replacement This is a 46-year-old white male whom I saw on consultation yesterday on 2016, hence the date of this service was on 10/04/2016, patient has been seeing Dr. Francisco for aortic regurgitation and dyslipidemia. He was experiencing intermittent episodes of chest discomfort and exertional dyspnea. Echocardiogram demonstrated bicuspid aortic valve with at least moderate aortic insufficiency. KHANG demonstrated bicuspid aortic valve with fusion of the right and left coronary cusp and severe aortic insufficiency. Patient had extreme dyspnea with any activity. Hence he was seen by cardiac surgery on consultation , and yesterday on 10/04/2016 patient underwent aortic valve replacement postoperatively, patient was on mechanical ventilation, and I was asked to see him on consultation. I saw the patient in the ICU after he was transferred from the OR, I adjusted his ventilator settings, and I plan to wean the patient over a period of a few hours. However the patient could not be weaned last night because of relative hypoxemia, and we kept him on mechanical ventilation until today when I saw him on follow-up. Patient was reevaluated today on 09/23, ABG was noted to be marginal, chest x-ray showed mild interstitial edema, patient was given Lasix earlier, and he was diuresing well. Hence I proceeded to placing the patient on a short trial of pressure support and CPAP with a pressure support of 8, and he was looking quite well clinically, proceeded to extubating the patient and placed on a high flow nasal cannula may require a 50% on a nonrebreather mask. Clinically however the patient looked quite well after extubation, and he had no form of shortness of breath. Reevaluated today on 10/06/2016, patient is doing well, tolerated the extubation well over the last 24 hours. No major issues, he is doing well with incentive spirometry, remains on bronchodilators, chest x-ray is showing significant improvement. All labs were reviewed including CBC and basic metabolic profile Reevaluated today on 10/07/2016, patient is status post aortic valve replacement , postoperative day #3. Continues to do well, no active pulmonary issues, doing excellent with spirometry, no cough no wheezing no shortness of breath. Chest x-ray showed mostly postoperative changes. Labs were reviewed and they seem to be relatively unremarkable. Objective - Vital Signs Vital signs: Vital Signs Temp 98 F 10/07/16 08:00 Pulse 74 10/07/16 11:00 Resp 23 10/07/16 11:00 BP 125/84 10/07/16 11:00 Pulse Ox 92 L 10/07/16 11:00 Intake & Output 10/06/16 10/07/16 10/07/16 18:59 06:59 18:59 Intake Total 535.462 760.749 181 Output Total 885 1045 90 Balance -349.538 -284.251 91 Weight 125.8 kg 123.5 kg Intake: IV 422 542 181 Lactated Ringers 1,000 ml 350 470 160 @ 20 mls/hr IV .Q24H AB[facility]JIT Rx#:[id number] Pressure Bag 72 72 21 Intake, IV Titration 113.462 18.749 Amount Clevidipine Butyrate 25 50 mg In Empty Bag 1 bag @ 1 MG/HR 2 mls/hr IV .Q24H [facility]IT Rx#:[id number] Insulin Regular 100 unit 63.462 18.749 In Sodium Chloride 0.9% 100 ml @ Per Protocol IV .Q0M [facility]JIT Rx#:[id number] Oral 200 Output: Chest Tube Drainage 120 170 90 Chest Tube Left Pleural/ 120 170 90 Mediastinal Urine 765 875 Other: Voiding Method Indwelling Catheter Toilet # Bowel Movements 0 0 ABP, PAP, CO, CI - Last Documented Arterial Blood Pressure 168/83 Pulmonary Artery Pressure 31/19 Cardiac Output 8.2 Cardiac Index 3.5 - Exam Physical Exam: Revealed a 56-year-old white male on nasal cannula, in no form of respiratory distress HEENT:[Neck is supple.] [No neck masses.] [No thyromegaly.] [No JVD.] Chest: [Diminished breath sounds at the bases no crackles or rhonchi or wheezes] Cardiac Exam: [Normal S1 and S2, no S3 gallop, no murmur.] Abdomen: [Soft, nontender, no megaly, no rebound, no guarding, normal bowel sounds.] Extremities: [No clubbing, no edema, no cyanosis.] Neurological Exam: [No focal neurologic deficit.] - Labs CBC & Chem 7: 10/07/16 04:24 10/07/16 04:24 Labs: Abnormal Lab Results - Last 24 Hours (Table) 10/06/16 10/06/16 10/06/16 Range/Units 13:05 13:59 15:01 RBC (4.30-5.90) m/uL Hgb (13.0-17.5) gm/dL Hct (39.0-53.0) % Plt Count (150-450) k/uL POC Glucose (mg/dL) 115 H 116 H 120 H (75-99) mg/dL Calcium (8.4-10.2) mg/dL Magnesium (1.6-2.3) mg/dL Total Protein (6.3-8.2) g/dL Albumin (3.5-5.0) g/dL 10/06/16 10/06/16 10/06/16 Range/Units 16:13 17:07 18:14 RBC (4.30-5.90) m/uL Hgb (13.0-17.5) gm/dL Hct (39.0-53.0) % Plt Count (150-450) k/uL POC Glucose (mg/dL) 111 H 111 H 114 H (75-99) mg/dL Calcium (8.4-10.2) mg/dL Magnesium (1.6-2.3) mg/dL Total Protein (6.3-8.2) g/dL Albumin (3.5-5.0) g/dL 10/06/16 10/06/16 10/06/16 Range/Units 19:00 20:09 21:20 RBC (4.30-5.90) m/uL Hgb (13.0-17.5) gm/dL Hct (39.0-53.0) % Plt Count (150-450) k/uL POC Glucose (mg/dL) 133 H 141 H 105 H (75-99) mg/dL Calcium (8.4-10.2) mg/dL Magnesium (1.6-2.3) mg/dL Total Protein (6.3-8.2) g/dL Albumin (3.5-5.0) g/dL 10/06/16 10/06/16 10/07/16 Range/Units 22:28 23:28 00:25 RBC (4.30-5.90) m/uL Hgb (13.0-17.5) gm/dL Hct (39.0-53.0) % Plt Count (150-450) k/uL POC Glucose (mg/dL) 125 H 107 H 54 L (75-99) mg/dL Calcium (8.4-10.2) mg/dL Magnesium (1.6-2.3) mg/dL Total Protein (6.3-8.2) g/dL Albumin (3.5-5.0) g/dL 10/07/16 10/07/16 10/07/16 Range/Units 01:17 02:24 03:30 RBC (4.30-5.90) m/uL Hgb (13.0-17.5) gm/dL Hct (39.0-53.0) % Plt Count (150-450) k/uL POC Glucose (mg/dL) 116 H 163 H 103 H (75-99) mg/dL Calcium (8.4-10.2) mg/dL Magnesium (1.6-2.3) mg/dL Total Protein (6.3-8.2) g/dL Albumin (3.5-5.0) g/dL 10/07/16 10/07/16 10/07/16 Range/Units 04:24 04:24 06:55 RBC 3.27 L (4.30-5.90) m/uL Hgb 10.0 L D (13.0-17.5) gm/dL Hct 28.3 L (39.0-53.0) % Plt Count 118 L (150-450) k/uL POC Glucose (mg/dL) 102 H (75-99) mg/dL Calcium 8.1 L (8.4-10.2) mg/dL Magnesium 2.5 H (1.6-2.3) mg/dL Total Protein 4.7 L (6.3-8.2) g/dL Albumin 2.7 L (3.5-5.0) g/dL 10/07/16 10/07/16 10/07/16 Range/Units 08:10 08:52 09:49 RBC (4.30-5.90) m/uL Hgb (13.0-17.5) gm/dL Hct (39.0-53.0) % Plt Count (150-450) k/uL POC Glucose (mg/dL) 108 H 139 H 116 H (75-99) mg/dL Calcium (8.4-10.2) mg/dL Magnesium (1.6-2.3) mg/dL Total Protein (6.3-8.2) g/dL Albumin (3.5-5.0) g/dL 10/07/16 10/07/16 10/07/16 Range/Units 11:05 12:08 12:25 RBC (4.30-5.90) m/uL Hgb (13.0-17.5) gm/dL Hct (39.0-53.0) % Plt Count (150-450) k/uL POC Glucose (mg/dL) 128 H 116 H 110 H (75-99) mg/dL Calcium (8.4-10.2) mg/dL Magnesium (1.6-2.3) mg/dL Total Protein (6.3-8.2) g/dL Albumin (3.5-5.0) g/dL Assessment and Plan Plan: Impression: Status post aortic valve replacement, postoperative day # 3 Multiple comorbidities including GERD/reflux, hyperlipidemia, history of migraine cephalgia, and history of osteoarthritis and degenerative disc disease of the cervical spine. Recommendation: Tinea present supportive care measures, continue incentive spirometry and bronchodilators, discussed the findings of the chest x-ray with the patient, no worrisome findings on the chest x-ray. Time with Patient: Less than 30
[2016-10-07 12:56] LABS: Glucose,Whole Blood 112 mg/dL (75-99)
[2016-10-07] MEDS: INSULIN LISPRO (humaLOG) 300 UNIT/3 ML VIAL SQ SCH ×3 (13:42→21:31)
[2016-10-07] MEDS: clonazePAM 1 MG TAB PO PRN ×2 (13:47→20:49)
--- NOTE | 2016-10-07 14:11 | P.PN ---
Subjective Patient is doing well following aortic valve replacement he does complain of some chest discomfort he is awaiting removal of chest tubes No undue shortness of breath no cough expectoration He is afebrile 90F pulse rate in the 70s, blood pressure 125/84 mmHg Breath sounds are reduced bilaterally Heart sounds are soft Abdomen soft nontender Extremities warm no edema Impression Bicuspid aortic valve with aortic stenosis status post aortic valve replacement Dyslipidemia Suggest continue postoperative ICU care post CABG care and then may transferred to Objective - Vital Signs Vital signs: Vital Signs Temp 98 F 10/07/16 08:00 Pulse 74 10/07/16 11:00 Resp 23 10/07/16 11:00 BP 125/84 10/07/16 11:00 Pulse Ox 92 L 10/07/16 11:00 Intake & Output 10/06/16 10/07/16 10/07/16 18:59 06:59 18:59 Intake Total 535.462 760.749 181 Output Total 885 1045 90 Balance -349.538 -284.251 91 Weight 125.8 kg 123.5 kg Intake: IV 422 542 181 Lactated Ringers 1,000 ml 350 470 160 @ 20 mls/hr IV .Q24H ABHIJIT Rx#:[id number] Pressure Bag 72 72 21 Intake, IV Titration 113.462 18.749 Amount Clevidipine Butyrate 25 50 mg In Empty Bag 1 bag @ 1 MG/HR 2 mls/hr IV .Q24H ABHIJIT Rx#:[id number] Insulin Regular 100 unit 63.462 18.749 In Sodium Chloride 0.9% 100 ml @ Per Protocol IV .Q0M ABHIJIT Rx#:[id number] Oral 200 Output: Chest Tube Drainage 120 170 90 Chest Tube Left Pleural/ 120 170 90 Mediastinal Urine 765 875 Other: Voiding Method Indwelling Catheter Toilet Toilet Urinal # Bowel Movements 0 0 ABP, PAP, CO, CI - Last Documented Arterial Blood Pressure 168/83 Pulmonary Artery Pressure 31/19 Cardiac Output 8.2 Cardiac Index 3.5 - Labs CBC & Chem 7: 10/07/16 04:24 10/07/16 04:24 Labs: Abnormal Lab Results - Last 24 Hours (Table) 10/06/16 10/06/16 10/06/16 Range/Units 15:01 16:13 17:07 RBC (4.30-5.90) m/uL Hgb (13.0-17.5) gm/dL Hct (39.0-53.0) % Plt Count (150-450) k/uL POC Glucose (mg/dL) 120 H 111 H 111 H (75-99) mg/dL Calcium (8.4-10.2) mg/dL Magnesium (1.6-2.3) mg/dL Total Protein (6.3-8.2) g/dL Albumin (3.5-5.0) g/dL 10/06/16 10/06/16 10/06/16 Range/Units 18:14 19:00 20:09 RBC (4.30-5.90) m/uL Hgb (13.0-17.5) gm/dL Hct (39.0-53.0) % Plt Count (150-450) k/uL POC Glucose (mg/dL) 114 H 133 H 141 H (75-99) mg/dL Calcium (8.4-10.2) mg/dL Magnesium (1.6-2.3) mg/dL Total Protein (6.3-8.2) g/dL Albumin (3.5-5.0) g/dL 10/06/16 10/06/16 10/06/16 Range/Units 21:20 22:28 23:28 RBC (4.30-5.90) m/uL Hgb (13.0-17.5) gm/dL Hct (39.0-53.0) % Plt Count (150-450) k/uL POC Glucose (mg/dL) 105 H 125 H 107 H (75-99) mg/dL Calcium (8.4-10.2) mg/dL Magnesium (1.6-2.3) mg/dL Total Protein (6.3-8.2) g/dL Albumin (3.5-5.0) g/dL 10/07/16 10/07/16 10/07/16 Range/Units 00:25 01:17 02:24 RBC (4.30-5.90) m/uL Hgb (13.0-17.5) gm/dL Hct (39.0-53.0) % Plt Count (150-450) k/uL POC Glucose (mg/dL) 54 L 116 H 163 H (75-99) mg/dL Calcium (8.4-10.2) mg/dL Magnesium (1.6-2.3) mg/dL Total Protein (6.3-8.2) g/dL Albumin (3.5-5.0) g/dL 10/07/16 10/07/16 10/07/16 Range/Units 03:30 04:24 04:24 RBC 3.27 L (4.30-5.90) m/uL Hgb 10.0 L D (13.0-17.5) gm/dL Hct 28.3 L (39.0-53.0) % Plt Count 118 L (150-450) k/uL POC Glucose (mg/dL) 103 H (75-99) mg/dL Calcium 8.1 L (8.4-10.2) mg/dL Magnesium 2.5 H (1.6-2.3) mg/dL Total Protein 4.7 L (6.3-8.2) g/dL Albumin 2.7 L (3.5-5.0) g/dL 10/07/16 10/07/16 10/07/16 Range/Units 06:55 08:10 08:52 RBC (4.30-5.90) m/uL Hgb (13.0-17.5) gm/dL Hct (39.0-53.0) % Plt Count (150-450) k/uL POC Glucose (mg/dL) 102 H 108 H 139 H (75-99) mg/dL Calcium (8.4-10.2) mg/dL Magnesium (1.6-2.3) mg/dL Total Protein (6.3-8.2) g/dL Albumin (3.5-5.0) g/dL 10/07/16 10/07/16 10/07/16 Range/Units 09:49 11:05 12:08 RBC (4.30-5.90) m/uL Hgb (13.0-17.5) gm/dL Hct (39.0-53.0) % Plt Count (150-450) k/uL POC Glucose (mg/dL) 116 H 128 H 116 H (75-99) mg/dL Calcium (8.4-10.2) mg/dL Magnesium (1.6-2.3) mg/dL Total Protein (6.3-8.2) g/dL Albumin (3.5-5.0) g/dL 10/07/16 10/07/16 Range/Units 12:25 12:55 RBC (4.30-5.90) m/uL Hgb (13.0-17.5) gm/dL Hct (39.0-53.0) % Plt Count (150-450) k/uL POC Glucose (mg/dL) 110 H 112 H (75-99) mg/dL Calcium (8.4-10.2) mg/dL Magnesium (1.6-2.3) mg/dL Total Protein (6.3-8.2) g/dL Albumin (3.5-5.0) g/dL
[2016-10-07 16:47] LABS: Glucose,Whole Blood 111 mg/dL (75-99)
[2016-10-07] MEDS: LACTATED RINGERS 1,000 ML IV SCH (17:04)
[2016-10-07] MEDS: DIVALPROEX 500 MG TABLET.DR PO SCH (17:05)
[2016-10-07] MEDS: METOPROLOL TARTRATE 25 MG TAB PO SCH (20:46)
[2016-10-07] MEDS: SENNOSIDES-DOCUSATE SODIUM 1 EACH TAB PO SCH (20:49)
[2016-10-07 21:17] LABS: Glucose,Whole Blood 97 mg/dL (75-99)
[2016-10-08 02:40] LABS: Glucose,Whole Blood 139 mg/dL (75-99)
[2016-10-08] MEDS: INSULIN LISPRO (humaLOG) 300 UNIT/3 ML VIAL SQ SCH ×4 (06:04→20:55)
[2016-10-08] MEDS: KETOROLAC 30 MG/ML 1 ML VIAL IVP SCH (06:06)
[2016-10-08] MEDS: PANTOPRAZOLE 40 MG TABLET PO SCH (06:07)
[2016-10-08] MEDS: METOPROLOL TARTRATE 25 MG TAB PO SCH ×2 (06:13→19:24)
[2016-10-08] MEDS: LISINOPRIL 5 MG TAB PO SCH (06:13)
[2016-10-08] MEDS: clonazePAM 1 MG TAB PO PRN ×2 (06:16→17:25)
[2016-10-08 06:20] LABS: Glucose,Whole Blood 101 mg/dL (75-99)
[2016-10-08 06:35] LABS: CHCM 33.6; HCT 27.6 % (39.0-53.0); HGB 9.4 gm/dL (13.0-17.5); MCH 30.7 pg (25.0-35.0); MCHC 34.1 g/dL (31.0-37.0); Mean Platelet Volume 8.5; RBC 3.06 m/uL (4.30-5.90); RDW 14.1 % (11.5-15.5); WBC 7.1 k/uL (3.8-10.6)
[2016-10-08 06:36] LABS: Prothrombin Time 10.2 sec (9.0-12.0)
[2016-10-08 06:48] LABS: ALT 33 U/L (21-72); AST 36 U/L (17-59); Alkaline Phosphatase 50 U/L (38-126); Anion Gap 10 mmol/L; Blood Urea Nitrogen 20 mg/dL (9-20); Calcium 8.4 mg/dL (8.4-10.2); Carbon Dioxide 26 mmol/L (22-30); Chloride 108 mmol/L (98-107); Glucose 95 mg/dL (74-99); Non-African American GFR(MDRD) >60 (>60 ml/min/1.73 sqM); Potassium 4.1 mmol/L (3.5-5.1); Sodium 144 mmol/L (137-145); Total Bilirubin 0.4 mg/dL (0.2-1.3); Total Protein 5.3 g/dL (6.3-8.2)
[2016-10-08] MEDS: IPRATROPIUM-ALBUTEROL 3 ML NEB INHALATION PRN (07:06)
[2016-10-08] MEDS: HYDROcodone/APAP 7.5-325MG 1 EACH TAB PO PRN ×3 (09:05→18:23)
[2016-10-08] MEDS: ATORVASTATIN 40 MG TAB PO SCH (09:06)
[2016-10-08] MEDS: HEPARIN SODIUM,PORCINE 5,000 UNIT/ML 1 ML VIAL SQ SCH ×3 (09:06→22:42)
[2016-10-08] MEDS: CLOPIDOGREL 75 MG TAB PO SCH (09:06)
[2016-10-08] MEDS: SERTRALINE 100 MG TAB PO SCH (09:06)
[2016-10-08] MEDS: ASPIRIN 325 MG TAB PO SCH (09:06)
--- NOTE | 2016-10-08 09:32 | XR ---
EXAMINATION TYPE: XR chest 2V DATE OF EXAM: 10/08/2016 7:30 AM COMPARISON: Prior chest x-ray 07 October 2016 HISTORY: Status post chest tube removal TECHNIQUE: Frontal and lateral views of the chest are obtained. FINDINGS: Left-sided chest tube has been removed in the interval. No evident pneumothorax. Bandlike area of increased density in the left midlung likely reflect subsegmental atelectasis, basilar atelec tasis persists on the right. Heart remains enlarged. Right hemidiaphragm elevated. IMPRESSION: No evident complication status post chest tube removal. Basilar atelectasis. Postop tong ges, cardiomegaly.
[2016-10-08] MEDS ORDERED: LISINOPRIL 5 MG TAB PO STA (09:47)
--- NOTE | 2016-10-08 10:38 | P.PN ---
Subjective Principal diagnosis: Status post aortic valve replacement This is a 46-year-old white male whom I saw on consultation yesterday on 2016, hence the date of this service was on 10/04/2016, patient has been seeing Dr. Francisco for aortic regurgitation and dyslipidemia. He was experiencing intermittent episodes of chest discomfort and exertional dyspnea. Echocardiogram demonstrated bicuspid aortic valve with at least moderate aortic insufficiency. KHANG demonstrated bicuspid aortic valve with fusion of the right and left coronary cusp and severe aortic insufficiency. Patient had extreme dyspnea with any activity. Hence he was seen by cardiac surgery on consultation , and yesterday on 10/04/2016 patient underwent aortic valve replacement postoperatively, patient was on mechanical ventilation, and I was asked to see him on consultation. I saw the patient in the ICU after he was transferred from the OR, I adjusted his ventilator settings, and I plan to wean the patient over a period of a few hours. However the patient could not be weaned last night because of relative hypoxemia, and we kept him on mechanical ventilation until today when I saw him on follow-up. Patient was reevaluated today on 09/23, ABG was noted to be marginal, chest x-ray showed mild interstitial edema, patient was given Lasix earlier, and he was diuresing well. Hence I proceeded to placing the patient on a short trial of pressure support and CPAP with a pressure support of 8, and he was looking quite well clinically, proceeded to extubating the patient and placed on a high flow nasal cannula may require a 50% on a nonrebreather mask. Clinically however the patient looked quite well after extubation, and he had no form of shortness of breath. Reevaluated today on 10/06/2016, patient is doing well, tolerated the extubation well over the last 24 hours. No major issues, he is doing well with incentive spirometry, remains on bronchodilators, chest x-ray is showing significant improvement. All labs were reviewed including CBC and basic metabolic profile Reevaluated today on 10/07/2016, patient is status post aortic valve replacement , postoperative day #3. Continues to do well, no active pulmonary issues, doing excellent with spirometry, no cough no wheezing no shortness of breath. Chest x-ray showed mostly postoperative changes. Labs were reviewed and they seem to be relatively unremarkable. Reevaluated today on 10/08/2016, patient is status post aortic valve replacement , postoperative day #4. Doing quite well, no specific complaints. No cough no wheezing no shortness of breath. Patient is already ambulating in the hallway, and no active pulmonary symptoms whatsoever. Labs were reviewed had a relatively normal basic metabolic profile and relatively normal CBC. Objective - Vital Signs Vital signs: Vital Signs Temp 97.8 F 10/08/16 08:41 Pulse 70 10/08/16 08:41 Resp 16 10/08/16 08:41 BP 139/85 10/08/16 08:41 Pulse Ox 93 L 10/08/16 08:41 Intake & Output 10/07/16 10/08/16 10/08/16 18:59 06:59 18:59 Intake Total 284 10 240 Output Total 685 350 Balance -401 -340 240 Intake: IV 284 10 0.9% NS 10 Lactated Ringers 1,000 ml 260 @ 20 mls/hr IV .Q24H ABHIJIT Rx#:[id number] Pressure Bag 24 Oral 240 Output: Chest Tube Drainage 110 Chest Tube Left Pleural/ 110 Mediastinal Urine 575 350 Other: Voiding Method Toilet Toilet Toilet Urinal Urinal Urinal # Voids 1 1 # Bowel Movements 1 ABP, PAP, CO, CI - Last Documented Arterial Blood Pressure 168/83 Pulmonary Artery Pressure 31/19 Cardiac Output 8.2 Cardiac Index 3.5 - Exam Physical Exam: Revealed a 56-year-old white male on nasal cannula, in no form of respiratory distress HEENT:[Neck is supple.] [No neck masses.] [No thyromegaly.] [No JVD.] Chest: [Diminished breath sounds at the bases no crackles or rhonchi or wheezes] Cardiac Exam: [Normal S1 and S2, no S3 gallop, no murmur.] Abdomen: [Soft, nontender, no megaly, no rebound, no guarding, normal bowel sounds.] Extremities: [No clubbing, no edema, no cyanosis.] Neurological Exam: [No focal neurologic deficit.] - Labs CBC & Chem 7: 10/08/16 05:57 10/08/16 05:57 Labs: Abnormal Lab Results - Last 24 Hours (Table) 10/07/16 10/07/16 10/07/16 Range/Units 11:05 12:08 12:25 RBC (4.30-5.90) m/uL Hgb (13.0-17.5) gm/dL Hct (39.0-53.0) % Plt Count (150-450) k/uL Chloride (98-107) mmol/L POC Glucose (mg/dL) 128 H 116 H 110 H (75-99) mg/dL Total Protein (6.3-8.2) g/dL Albumin (3.5-5.0) g/dL 10/07/16 10/07/16 10/08/16 Range/Units 12:55 16:45 02:34 RBC (4.30-5.90) m/uL Hgb (13.0-17.5) gm/dL Hct (39.0-53.0) % Plt Count (150-450) k/uL Chloride (98-107) mmol/L POC Glucose (mg/dL) 112 H 111 H 139 H (75-99) mg/dL Total Protein (6.3-8.2) g/dL Albumin (3.5-5.0) g/dL 10/08/16 10/08/16 10/08/16 Range/Units 05:52 05:57 05:57 RBC 3.06 L (4.30-5.90) m/uL Hgb 9.4 L (13.0-17.5) gm/dL Hct 27.6 L (39.0-53.0) % Plt Count 147 L (150-450) k/uL Chloride 108 H (98-107) mmol/L POC Glucose (mg/dL) 101 H (75-99) mg/dL Total Protein 5.3 L (6.3-8.2) g/dL Albumin 2.9 L (3.5-5.0) g/dL Assessment and Plan Plan: Impression: Status post aortic valve replacement, postoperative day # 4 Multiple comorbidities including GERD/reflux, hyperlipidemia, history of migraine cephalgia, and history of osteoarthritis and degenerative disc disease of the cervical spine. Recommendation: Tinea present supportive care measures, continue incentive spirometry and bronchodilators, consider discharge planning in the morning. Time with Patient: Less than 30
--- NOTE | 2016-10-08 11:01 | P.PN ---
Subjective Principal diagnosis: Severe aortic regurgitation. POD #4 aortic valve replacement, transesophageal echocardiogram. Sitting up in chair this morning in no apparent distress, ambulating in the hallway. Had some issues with hypertension and anxiety last night. Objective - Vital Signs Vital signs: Vital Signs Temp 97.8 F 10/08/16 08:41 Pulse 70 10/08/16 08:41 Resp 16 10/08/16 08:41 BP 139/85 10/08/16 08:41 Pulse Ox 93 L 10/08/16 08:41 Intake & Output 10/07/16 10/08/16 10/08/16 18:59 06:59 18:59 Intake Total 284 10 240 Output Total 685 350 Balance -401 -340 240 Intake: IV 284 10 0.9% NS 10 Lactated Ringers 1,000 ml 260 @ 20 mls/hr IV .Q24H ABHIJIT Rx#:[id number] Pressure Bag 24 Oral 240 Output: Chest Tube Drainage 110 Chest Tube Left Pleural/ 110 Mediastinal Urine 575 350 Other: Voiding Method Toilet Toilet Toilet Urinal Urinal Urinal # Voids 1 1 # Bowel Movements 1 ABP, PAP, CO, CI - Last Documented Arterial Blood Pressure 168/83 Pulmonary Artery Pressure 31/19 Cardiac Output 8.2 Cardiac Index 3.5 - Constitutional General appearance: Present: cooperative, no acute distress - Respiratory Details: Lungs sounds of his bilaterally. Respirations even, nonlabored. Remains on room air. Effective cough. - Cardiovascular Details: S1, S2 present. Regular rate and rhythm, normal sinus rhythm on telemetry. No events noted overnight. Sternum stable. Heart hugger in place with patient demonstrating appropriate use. Teds/SCDs present. - Gastrointestinal Gastrointestinal Comment(s): Abdomen soft, nontender, nondistended. Active bowel sounds 4 quadrants. Tolerating diet. - Genitourinary Genitourinary Comment(s): Continues to void clear yellow urine. - Integumentary Integumentary Comment(s): Anterior chest wall covered with dry intact silver dressing. - Musculoskeletal Musculoskeletal: Present: gait normal, strength equal bilaterally - Psychiatric Psychiatric: Present: A&O x's 3, appropriate affect, intact judgment & insight - Allied health notes Allied health notes reviewed: nursing - Labs CBC & Chem 7: 10/08/16 05:57 10/08/16 05:57 Labs: Abnormal Lab Results - Last 24 Hours (Table) 10/07/16 10/07/16 10/07/16 Range/Units 11:05 12:08 12:25 RBC (4.30-5.90) m/uL Hgb (13.0-17.5) gm/dL Hct (39.0-53.0) % Plt Count (150-450) k/uL Chloride (98-107) mmol/L POC Glucose (mg/dL) 128 H 116 H 110 H (75-99) mg/dL Total Protein (6.3-8.2) g/dL Albumin (3.5-5.0) g/dL 10/07/16 10/07/16 10/08/16 Range/Units 12:55 16:45 02:34 RBC (4.30-5.90) m/uL Hgb (13.0-17.5) gm/dL Hct (39.0-53.0) % Plt Count (150-450) k/uL Chloride (98-107) mmol/L POC Glucose (mg/dL) 112 H 111 H 139 H (75-99) mg/dL Total Protein (6.3-8.2) g/dL Albumin (3.5-5.0) g/dL 10/08/16 10/08/16 10/08/16 Range/Units 05:52 05:57 05:57 RBC 3.06 L (4.30-5.90) m/uL Hgb 9.4 L (13.0-17.5) gm/dL Hct 27.6 L (39.0-53.0) % Plt Count 147 L (150-450) k/uL Chloride 108 H (98-107) mmol/L POC Glucose (mg/dL) 101 H (75-99) mg/dL Total Protein 5.3 L (6.3-8.2) g/dL Albumin 2.9 L (3.5-5.0) g/dL - Imaging and Cardiology Chest x-ray: report reviewed, image reviewed Assessment and Plan (1) Status post aortic valve replacement with bioprosthetic valve Status: Acute (2) Bicuspid aortic valve Status: Acute (3) Cannabis abuse, daily use Status: Acute (4) Family history of early CAD Status: Acute (5) Hypertriglyceridemia Status: Acute (6) Quit smoking within past year Status: Acute Plan: 1. Continue aspirin, Lipitor, Plavix, heparin, Lopressor. Increase lisinopril to 10 mg twice a day. 2. Encourage incentive spirometry use, pulmonary toileting 3. Increase activity, continue to ambulate the hallway. PT to follow. 4. Insulin management per primary care service. 5. GI/DVT prophylaxis. 6. Daily labs, x-rays. 7. Likely discharge to home tomorrow. Time with Patient: Greater than 30
[2016-10-08 11:16] LABS: Glucose,Whole Blood 133 mg/dL (75-99)
--- NOTE | 2016-10-08 11:29 | P.PN ---
Subjective Patient is doing well. He is lying flat in bed. Most of his chest discomfort has now disappeared after removal of the chest tube. He has vague discomfort in the incision area but is quite comfortable. No breathing trouble no dizziness lightheadedness Afebrile 97.8, pulse rate in the 70s, respirations normal, blood pressure 139/ 85 mmHg Heart sounds S1 and S2 normal crisp S2 breath sounds are normal no rhonchi no crackles Abdomen soft nontender Extremities warm no edema Impression Aortic valve disease status post aortic valve replacement Hypertension Suggest Add jhon inhibitors And review all other medications Objective - Vital Signs Vital signs: Vital Signs Temp 97.8 F 10/08/16 08:41 Pulse 70 10/08/16 08:41 Resp 16 10/08/16 08:41 BP 139/85 10/08/16 08:41 Pulse Ox 93 L 10/08/16 08:41 Intake & Output 10/07/16 10/08/16 10/08/16 18:59 06:59 18:59 Intake Total 284 10 240 Output Total 685 350 Balance -401 -340 240 Intake: IV 284 10 0.9% NS 10 Lactated Ringers 1,000 ml 260 @ 20 mls/hr IV .Q24H ABHIJIT Rx#:[id number] Pressure Bag 24 Oral 240 Output: Chest Tube Drainage 110 Chest Tube Left Pleural/ 110 Mediastinal Urine 575 350 Other: Voiding Method Toilet Toilet Toilet Urinal Urinal Urinal # Voids 1 1 # Bowel Movements 1 ABP, PAP, CO, CI - Last Documented Arterial Blood Pressure 168/83 Pulmonary Artery Pressure 31/19 Cardiac Output 8.2 Cardiac Index 3.5 - Labs CBC & Chem 7: 10/08/16 05:57 10/08/16 05:57 Labs: Abnormal Lab Results - Last 24 Hours (Table) 10/07/16 10/07/16 10/07/16 Range/Units 12:08 12:25 12:55 RBC (4.30-5.90) m/uL Hgb (13.0-17.5) gm/dL Hct (39.0-53.0) % Plt Count (150-450) k/uL Chloride (98-107) mmol/L POC Glucose (mg/dL) 116 H 110 H 112 H (75-99) mg/dL Total Protein (6.3-8.2) g/dL Albumin (3.5-5.0) g/dL 10/07/16 10/08/16 10/08/16 Range/Units 16:45 02:34 05:52 RBC (4.30-5.90) m/uL Hgb (13.0-17.5) gm/dL Hct (39.0-53.0) % Plt Count (150-450) k/uL Chloride (98-107) mmol/L POC Glucose (mg/dL) 111 H 139 H 101 H (75-99) mg/dL Total Protein (6.3-8.2) g/dL Albumin (3.5-5.0) g/dL 10/08/16 10/08/16 10/08/16 Range/Units 05:57 05:57 11:15 RBC 3.06 L (4.30-5.90) m/uL Hgb 9.4 L (13.0-17.5) gm/dL Hct 27.6 L (39.0-53.0) % Plt Count 147 L (150-450) k/uL Chloride 108 H (98-107) mmol/L POC Glucose (mg/dL) 133 H (75-99) mg/dL Total Protein 5.3 L (6.3-8.2) g/dL Albumin 2.9 L (3.5-5.0) g/dL
[2016-10-08 16:55] LABS: Glucose,Whole Blood 131 mg/dL (75-99)
[2016-10-08] MEDS: DIVALPROEX 500 MG TABLET.DR PO SCH (17:25)
[2016-10-08] MEDS: SENNOSIDES-DOCUSATE SODIUM 1 EACH TAB PO SCH (19:26)
[2016-10-08] MEDS: LISINOPRIL 10 MG TAB PO SCH (19:26)
[2016-10-08 20:51] LABS: Glucose,Whole Blood 100 mg/dL (75-99)
[2016-10-09] MEDS: HYDROcodone/APAP 7.5-325MG 1 EACH TAB PO PRN ×3 (00:10→11:14)
[2016-10-09 02:44] LABS: Glucose,Whole Blood 129 mg/dL (75-99)
[2016-10-09] MEDS: clonazePAM 1 MG TAB PO PRN (04:50)
[2016-10-09 05:40] VITALS: RESP 18
[2016-10-09] MEDS: PANTOPRAZOLE 40 MG TABLET PO SCH (06:03)
[2016-10-09 06:19] LABS: CH 30.1; CHCM 33.8; HCT 26.8 % (39.0-53.0); HGB 9.2 gm/dL (13.0-17.5); MCH 30.7 pg (25.0-35.0); MCHC 34.3 g/dL (31.0-37.0); MCV 89.4 fL (80.0-100.0); Mean Platelet Volume 7.8; WBC 8.2 k/uL (3.8-10.6)
[2016-10-09 06:26] LABS: Prothrombin Time 10.1 sec (9.0-12.0)
[2016-10-09 06:28] LABS: ALT 34 U/L (21-72); AST 30 U/L (17-59); Alkaline Phosphatase 56 U/L (38-126); Anion Gap 10 mmol/L; Blood Urea Nitrogen 13 mg/dL (9-20); Calcium 8.5 mg/dL (8.4-10.2); Carbon Dioxide 26 mmol/L (22-30); Chloride 107 mmol/L (98-107); Glucose 111 mg/dL (74-99); Non-African American GFR(MDRD) >60 (>60 ml/min/1.73 sqM); Potassium 3.8 mmol/L (3.5-5.1); Sodium 143 mmol/L (137-145); Total Bilirubin 0.5 mg/dL (0.2-1.3); Total Protein 5.2 g/dL (6.3-8.2)
[2016-10-09 06:30] LABS: Glucose,Whole Blood 128 mg/dL (75-99)
[2016-10-09] MEDS: INSULIN LISPRO (humaLOG) 300 UNIT/3 ML VIAL SQ SCH ×2 (06:35→11:48)
[2016-10-09 07:56] VITALS: TEMP 96.6
[2016-10-09] MEDS: HEPARIN SODIUM,PORCINE 5,000 UNIT/ML 1 ML VIAL SQ SCH (07:57)
[2016-10-09] MEDS: ASPIRIN 325 MG TAB PO SCH (07:57)
[2016-10-09] MEDS: METOPROLOL TARTRATE 25 MG TAB PO SCH (07:57)
[2016-10-09] MEDS: CLOPIDOGREL 75 MG TAB PO SCH (07:57)
[2016-10-09] MEDS: LISINOPRIL 10 MG TAB PO SCH (07:57)
[2016-10-09] MEDS: ATORVASTATIN 40 MG TAB PO SCH (07:58)
[2016-10-09] MEDS: SERTRALINE 100 MG TAB PO SCH (07:58)
--- NOTE | 2016-10-09 08:23 | XR ---
EXAMINATION TYPE: XR chest 2V DATE OF EXAM: 10/09/2016 6:17 AM COMPARISON: 10/08/2016 HISTORY: 46 year-old male post chest tube removal TECHNIQUE: Frontal and lateral views FINDINGS: Median sternotomy wires are present. Prosthetic aortic valve. Heart remains borderline to mildly enla rged. Mild diffuse interstitial prominence is unchanged. Similar elevation of the right hemidiaphragm with patchy right basilar opacity. No appreciable pneumothorax. IMPRESSION: Stable volume loss and patchy atelectasis at the right base.
--- NOTE | 2016-10-09 09:01 | P.PN ---
Subjective Principal diagnosis: Severe aortic regurgitation. POD #5 aortic valve replacement, transesophageal echocardiogram. Sitting up in chair this morning in no apparent distress, ambulating in the hallway. Somewhat teary-eyed this morning, frustrated with lack of follow-up with psychiatrist. Allow to vent. Objective - Vital Signs Vital signs: Vital Signs Temp 96.6 F L 10/09/16 07:55 Pulse 76 10/09/16 07:55 Resp 18 10/09/16 08:00 BP 147/92 10/09/16 07:55 Pulse Ox 94 L 10/09/16 07:55 Intake & Output 10/08/16 10/09/16 10/09/16 18:59 06:59 18:59 Intake Total 840 20 Output Total 800 Balance 40 20 Weight 122.3 kg Intake: IV 20 0.9% NS 20 Oral 840 Output: Urine 800 Other: Voiding Method Toilet Toilet Urinal Urinal # Voids 1 ABP, PAP, CO, CI - Last Documented Arterial Blood Pressure 168/83 Pulmonary Artery Pressure 31/19 Cardiac Output 8.2 Cardiac Index 3.5 - Constitutional General appearance: Present: cooperative, no acute distress - Respiratory Details: Sounds diminished bilaterally. Respirations even, nonlabored. Able to achieve 3250 mL on incentive spirometry. Currently on room air. - Cardiovascular Details: S1, S2 present. Regular rate and rhythm, normal sinus rhythm on telemetry. No events noted overnight on telemetry. Sternum stable. Heart hugger place with patient demonstrating appropriate use. Teds/SCDs present. - Gastrointestinal Gastrointestinal Comment(s): Abdomen soft, nontender, nondistended. Active bowel sounds 4 quadrants. Tolerating diet. - Genitourinary Genitourinary Comment(s): Continues to void clear, yellow urine per urinal. - Integumentary Integumentary Comment(s): Anterior chest dressing covered with dry intact silver dressing. - Musculoskeletal Musculoskeletal: Present: gait normal, strength equal bilaterally - Psychiatric Psychiatric: Present: A&O x's 3, appropriate affect, intact judgment & insight - Allied health notes Allied health notes reviewed: nursing - Labs CBC & Chem 7: 10/09/16 05:58 10/09/16 05:58 Labs: Abnormal Lab Results - Last 24 Hours (Table) 10/08/16 10/08/16 10/08/16 Range/Units 11:15 16:48 20:48 RBC (4.30-5.90) m/uL Hgb (13.0-17.5) gm/dL Hct (39.0-53.0) % Glucose (74-99) mg/dL POC Glucose (mg/dL) 133 H 131 H 100 H (75-99) mg/dL Total Protein (6.3-8.2) g/dL Albumin (3.5-5.0) g/dL 10/09/16 10/09/16 10/09/16 Range/Units 02:32 05:58 05:58 RBC 3.00 L (4.30-5.90) m/uL Hgb 9.2 L (13.0-17.5) gm/dL Hct 26.8 L (39.0-53.0) % Glucose 111 H (74-99) mg/dL POC Glucose (mg/dL) 129 H (75-99) mg/dL Total Protein 5.2 L (6.3-8.2) g/dL Albumin 2.9 L (3.5-5.0) g/dL 10/09/16 Range/Units 06:29 RBC (4.30-5.90) m/uL Hgb (13.0-17.5) gm/dL Hct (39.0-53.0) % Glucose (74-99) mg/dL POC Glucose (mg/dL) 128 H (75-99) mg/dL Total Protein (6.3-8.2) g/dL Albumin (3.5-5.0) g/dL - Imaging and Cardiology Chest x-ray: report reviewed, image reviewed Assessment and Plan (1) Status post aortic valve replacement with bioprosthetic valve Status: Acute (2) Bicuspid aortic valve Status: Acute (3) Cannabis abuse, daily use Status: Acute (4) Family history of early CAD Status: Acute (5) Hypertriglyceridemia Status: Acute (6) Quit smoking within past year Status: Acute Plan: 1. Continue aspirin, Lipitor, Plavix, heparin, Lopressor, lisinopril. 2. Encourage incentive spirometry use, pulmonary toileting 3. Increase activity, continue to ambulate in the hallway. PT to follow. 4. Insulin management per primary care service. 5. GI/DVT prophylaxis. 6. Daily labs, x-rays. 7. Likely discharge to home later today. Time with Patient: Greater than 30
[2016-10-09 11:12] VITALS: BP 150/89; PULSE 80
--- NOTE | 2016-10-09 11:39 | P.PN ---
Subjective Progress note dated 10/09/2016 This is a patient who is 46 years of age. He's postop day #5 status post aortic valve replacement. He denies any additional complaints including shortness of breath chest tightness wheezing cough phlegm production coughing up blood. No fever no chills. No nausea vomiting or diarrhea. Doing relatively well yesterday for Dr. Gonzalez seems be doing relatively well today for me. Objective - Vital Signs Vital signs: Vital Signs Temp 96.6 F L 10/09/16 07:55 Pulse 80 10/09/16 11:11 Resp 18 10/09/16 11:11 BP 150/89 10/09/16 11:11 Pulse Ox 95 10/09/16 11:11 Intake & Output 10/08/16 10/09/16 10/09/16 18:59 06:59 18:59 Intake Total 840 20 Output Total 800 Balance 40 20 Weight 122.3 kg Intake: IV 20 0.9% NS 20 Oral 840 Output: Urine 800 Other: Voiding Method Toilet Toilet Urinal Urinal # Voids 1 0 ABP, PAP, CO, CI - Last Documented Arterial Blood Pressure 168/83 Pulmonary Artery Pressure 31/19 Cardiac Output 8.2 Cardiac Index 3.5 - Exam No acute distress, alert and oriented 3. In no distress. HEENT examination is grossly unremarkable. Mucous membranes are moist. No oral lesions. Neck supple. Full range of motion. No adenopathy or thyromegaly. Cardiovascular examination reveals regular rhythm rate. Heart sounds are distant. S1-S2 normal. No distinct murmur noted. Lungs reveal relatively clear breath sounds. No wheezes or rhonchi. No crackles. Sounds are heard. No masses or tenderness. Extremities are intact. No sinus clubbing or edema. Skin is without lesion. Neurologic examination is prepared nonfocal. - Labs CBC & Chem 7: 10/09/16 05:58 10/09/16 05:58 Labs: Abnormal Lab Results - Last 24 Hours (Table) 10/08/16 10/08/16 10/09/16 Range/Units 16:48 20:48 02:32 RBC (4.30-5.90) m/uL Hgb (13.0-17.5) gm/dL Hct (39.0-53.0) % Glucose (74-99) mg/dL POC Glucose (mg/dL) 131 H 100 H 129 H (75-99) mg/dL Total Protein (6.3-8.2) g/dL Albumin (3.5-5.0) g/dL 10/09/16 10/09/16 10/09/16 Range/Units 05:58 05:58 06:29 RBC 3.00 L (4.30-5.90) m/uL Hgb 9.2 L (13.0-17.5) gm/dL Hct 26.8 L (39.0-53.0) % Glucose 111 H (74-99) mg/dL POC Glucose (mg/dL) 128 H (75-99) mg/dL Total Protein 5.2 L (6.3-8.2) g/dL Albumin 2.9 L (3.5-5.0) g/dL Assessment and Plan (1) Status post aortic valve replacement with bioprosthetic valve Status: Acute (2) Anxiety Status: Acute (3) Borderline hypertension Status: Acute (4) Cannabis abuse, daily use Status: Acute (5) Family history of early CAD Status: Acute (6) Hypertriglyceridemia Status: Acute (7) Quit smoking within past year Status: Acute (8) Severe aortic insufficiency Status: Acute Plan: Plan dated 10/09/2016 The patient continues to do well. We'll continue with current supportive measures including incentive spirometer bronchodilators. The patient may be possibly discharged either today or tomorrow. No active pulmonary problems at this time. We'll make sure he has follow-up in the office. A chest x-ray in the office. Additional recommendations suggestions are forthcoming. Medications labs and x-rays are all reviewed. Time with Patient: Less than 30
[2016-10-09 11:44] LABS: Glucose,Whole Blood 146 mg/dL (75-99)
--- NOTE | 2016-10-09 13:52 | P.DS ---
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: post cardiac surgery Do you want consulting provider notified?: Yes Primary care physician: Matthew Katz - Discharge Diagnosis(es) (1) Status post aortic valve replacement with bioprosthetic valve Current Visit: Yes Status: Acute (2) Bicuspid aortic valve Current Visit: No Status: Acute (3) Cannabis abuse, daily use Current Visit: No Status: Acute (4) Family history of early CAD Current Visit: No Status: Acute (5) Hypertriglyceridemia Current Visit: No Status: Acute (6) Quit smoking within past year Current Visit: No Status: Acute Hospital Course: FINAL DIAGNOSIS: 1.[Bicuspid aortic valve, Severe aortic regurgitation] 2.[Hyperlipidemia] 3.[Hypertension] 4.[Previous nicotine dependence] 5.[Marijuana dependence] PRINCIPAL PROCEDURE: [] 1.[Elective aortic valve replacement with 27 mm magna ease aortic valve] 2.[Transesophageal echocardiogram] HISTORY OF PRESENT ILLNESS: [This 46-year-old male had been followed by Dr. Mullins for aortic regurgitation and dyslipidemia, specifically hypertriglyceridemia. He had been treated medically for a while, but began experiencing intermittent episodes of chest discomfort and exertional dyspnea. Through Dr. Mullins's office he underwent an echocardiogram which demonstrated bicuspid aortic valve with at least moderate aortic insufficiency. He also had a KHANG which demonstrated bicuspid aortic valve with fusion of the right and left coronary cusps and severe aortic insufficiency. He further had an exercise stress test but was only able to walk 3 minutes and subsequently became symptomatic. Dr. Mullins performed a left heart catheterization on 2016 to evaluate for coronary artery disease which demonstrated intermediate nonobstructive coronary artery disease involving the proximal right coronary artery and first diagonal branch of the left anterior descending artery. Dr. Nichole was consulted for cardiothoracic surgery for the possibility of aortic valve replacement. Extensive discussion was had with the patient and his , all risks and benefits were explained, and consent was obtained to proceed with surgery.] HOSPITAL COURSE:[The patient was brought to the hospital on 10/04/2016, taken to the preoperative area, prepared in the usual fashion, and subsequently taken to the operating room where Dr. Nichole performed an elective aortic valve replacement with 27 mm magna ease aortic valve and a transesophageal echocardiogram. Upon completion of surgery the patient was transferred to the cardiovascular intensive care unit where he was recovered, monitored hemodynamically, and where he progressed to cardiac rehabilitation phase 1. He was extubated, all lines, tubes, and drips were discontinued when appropriate, and he was transferred to [address] [place] [address] for further monitoring and rehabilitation. His oxygen was titrated down, he continued to work with physical therapy, and he was ready to be discharged home on postoperative day # 5 with [facility] to follow. He received written and verbal instructions regarding his medications, activity restrictions, signs and symptoms requiring physician notification, and follow-up appointments.] COMPLICATIONS: [The patient states no postoperative complications.] CONSULTATIONS: 1.[Dr. Mullins for cardiology] 2.[Dr. Carlos zarate for pulmonology/moss picker care] 3.[Dr. Katz for medical management] Plan - Discharge Summary New Discharge Prescriptions: Aspirin 325 mg PO DAILY #30 tab Atorvastatin [Lipitor] 40 mg PO DAILY #30 tab Clopidogrel [Plavix] 75 mg PO DAILY #30 tab HYDROcodone/APAP 7.5-325MG [Deland 7.5-325] 1 - 2 tab PO TID PRN #90 tab PRN Reason: Pain Lisinopril [Zestril] 10 mg PO BID #60 tab Metoprolol Tartrate [Lopressor] 25 mg PO BID #60 tab Discharge Medication List Omeprazole 40 mg PO DAILY 09/14/15 [History] clonazePAM [KlonoPIN] 1 mg PO BID PRN 09/14/15 [History] Sertraline [Zoloft] 100 mg PO QAM 04/21/16 [History] Fenofibrate 160 mg PO DAILY 07/18/16 [History] Divalproex [Depakote] 1,000 mg PO DAILY@1800 08/28/16 [History] Aspirin 325 mg PO DAILY #30 tab 10/09/16 [Rx] Atorvastatin [Lipitor] 40 mg PO DAILY #30 tab 10/09/16 [Rx] Clopidogrel [Plavix] 75 mg PO DAILY #30 tab 10/09/16 [Rx] HYDROcodone/APAP 7.5-325MG [Deland 7.5-325] 1 - 2 tab PO TID PRN #90 tab [Rx] Lisinopril [Zestril] 10 mg PO BID #60 tab 10/09/16 [Rx] Metoprolol Tartrate [Lopressor] 25 mg PO BID #60 tab 10/09/16 [Rx] Follow up Appointment(s)/Referral(s): Osmani Gonzalez MD [STAFF PHYSICIAN] - 10/17/16 1:00 pm Shey Myers NPC [Nurse Practitioner] - 10/12/16 3:30 pm Eric Mullins MD [STAFF PHYSICIAN] - 10/20/16 3:00 pm Matthew Katz MD [Primary Care Provider] - 10/23/16 1:00 pm [facility], [NON-STAFF] - Laureano Dillon DO [Medical Doctor] - 10/20/16 1:40 pm Jay Nichole MD [STAFF PHYSICIAN] - 10/31/16 2:00 pm Ambulatory/Diagnostic Orders: Complete Blood Count w/diff [LAB.AMB] Time Frame: 3 Days, Facility: [facility], Location: [facility] Comprehensive Metabolic Panel [LAB.AMB] Time Frame: 3 Days, Facility: [facility], Location: [facility] Activity/Diet/Wound Care/Special Instructions: DISCHARGE INSTRUCTIONS: 1. No driving for 4 weeks, or until physician gives their ok. 2. The patient should sleep in their own bed, no medical bed needed. 3. Stairs are not an issue. If the bedroom is upstairs, it is advised that the patient go up at night and down in the morning for the first week. Go slowly, using handrail and take 1 step at a time. 4. ERICKA hose are to be worn for 30 days or until physician discontinues. 5. Heart hugger is to be worn 100% of the time until physician discontinues.( except when showering) 6. No lifting, pushing, or pulling more than 10 pounds for 12 weeks. The physician will advise of any restriction changes. 7. The patient is expected to continue the prescribed walking program. 8. Continue pain control per as needed orders. 9. Continue with incentive spirometry and splinting/heart hugger until otherwise directed by the physician. 10. Must shower daily using liquid antibacterial soap and a separate white washcloth for each individual incision. 11. Routine sternal incision care: No lotions, powders, ointments on incisions. HOME HEALTH SERVICES TO PROVIDE: RN SKILLED HOME CARE SERVICES FOR POST-OP SURGICAL PATIENTS WITH THE FOLLOWING: Coronary Artery Bypass Surgery (CABG), Mitral Valve Replacement/ Repair ( MVR), Aortic Valve Replacement/Repair (AVR) RN TO CONTINUE EDUCATION FROM ``ROAD TO A HEALTH HEART PATIENT EDUCATION MANUAL (GIVEN TO PATIENT IN THE HOSPITAL) MEDICATION RECONCILIATION WITH EDUCATION NEEDED ON FIRST HOME VISIT EMPHASIZE IMPORTANCE OF WEARING HEART HUGGER ENCOURAGE USE OF INCENTIVE SPIROMETER 10 X EVERY HOUR WHILE AWAKE ENCOURAGE UTILIZATION OF LOWER EXTREMITY COMPRESSION STOCKINGS/ERICKA HOSE and ELEVATE LEGS ABOVE LEVEL OF HEART WHILE AT REST. ENCOURAGE AMBULATION 3-5x/day INCREASING TOLERATES, WHILE AVOID EXTREMES IN TEMPERATURE FREQUENCY: RN TO OPEN THE PATIENT WITHIN 24 HOURS OF DISCHARGE FROM THE HOSPITAL WITH TELEHEALTH INSTALLED AT [facility] [place], RN TO VISIT 2-3 X A WEEK FOR 4 WEEKS ESTABLISHED BY PATIENT NEEDS. LABORATORY: CBC, CMP TO BE DRAWN ON THE THIRD DAY HOME, 10/12/2016 (RAN STAT ) FAX RESULTS TO [phone]. TELEHEALTH PARAMETERS: WEIGHT: NOTIFY MD OF WEIGHT GAIN OF 2 LBS IN 24 HOURS OR 5 LBS IN ONE WEEK HR: NOTIFY MD OF HR <55 BPM OR HR>100 BPM BP: NOTIFY MD IF BP <90/55 OR BP>140/100 O2 SAT: NOTIFY MD IF PO2<93% ON ROOM AIR SEND TELEHEALTH REPORT TO SEAFOOD PROCESSOR AND CARDIOVASCULAR SURGEON THE FIRST WEEK OF CARE AND THEN BI-WEEKLY. PLEASE ADDITIONALLY COMMUNICATE ANY ABNORMALS AND NEW FINDINGS TO THE SURGEONS OFFICE . Discharge Disposition: HOME WITH HOME HEALTH SERVICES
--- NOTE | 2016-10-09 14:48 | P.PN ---
Subjective Principal diagnosis: This is a 46-year-old gentleman who is status post aortic valve replacement. History also of hypertension, hyperlipidemia, marijuana dependence and nicotine dependence. Patient was seen and examined today, up ambulating in the hallway without any difficulty. Hemodynamically stable. Objective - Vital Signs Vital signs: Vital Signs Temp 96.6 F L 10/09/16 07:55 Pulse 80 10/09/16 11:11 Resp 18 10/09/16 11:11 BP 150/89 10/09/16 11:11 Pulse Ox 95 10/09/16 11:11 Intake & Output 10/08/16 10/09/16 10/09/16 18:59 06:59 18:59 Intake Total 840 20 240 Output Total 800 Balance 40 20 240 Weight 122.3 kg Intake: IV 20 0.9% NS 20 Oral 840 240 Output: Urine 800 Other: Voiding Method Toilet Toilet Urinal Urinal # Voids 1 0 ABP, PAP, CO, CI - Last Documented Arterial Blood Pressure 168/83 Pulmonary Artery Pressure 31/19 Cardiac Output 8.2 Cardiac Index 3.5 - Exam PHYSICAL EXAMINATION: HEENT: Head is atraumatic, normocephalic. Pupils equal, round. Neck is supple. There is no elevated jugular venous pressure. HEART EXAMINATION: Heart S1, S2 normal. No murmur or gallop heard. CHEST EXAMINATION: Lungs are clear to auscultation and precussion. No chest wall tenderness is noted on palpation or with deep breathing. ABDOMEN: Soft, nontender. Bowel sounds are heard. No organomegaly noted. EXTREMITIES: 2+ peripheral pulses with no evidence of peripheral edema and no calf tenderness noted. NEUROLOGIC patient is awake, alert and oriented -3. . - Labs CBC & Chem 7: 10/09/16 05:58 10/09/16 05:58 Labs: Abnormal Lab Results - Last 24 Hours (Table) 10/08/16 10/08/16 10/09/16 Range/Units 16:48 20:48 02:32 RBC (4.30-5.90) m/uL Hgb (13.0-17.5) gm/dL Hct (39.0-53.0) % Glucose (74-99) mg/dL POC Glucose (mg/dL) 131 H 100 H 129 H (75-99) mg/dL Total Protein (6.3-8.2) g/dL Albumin (3.5-5.0) g/dL 10/09/16 10/09/16 10/09/16 Range/Units 05:58 05:58 06:29 RBC 3.00 L (4.30-5.90) m/uL Hgb 9.2 L (13.0-17.5) gm/dL Hct 26.8 L (39.0-53.0) % Glucose 111 H (74-99) mg/dL POC Glucose (mg/dL) 128 H (75-99) mg/dL Total Protein 5.2 L (6.3-8.2) g/dL Albumin 2.9 L (3.5-5.0) g/dL 10/09/16 Range/Units 11:43 RBC (4.30-5.90) m/uL Hgb (13.0-17.5) gm/dL Hct (39.0-53.0) % Glucose (74-99) mg/dL POC Glucose (mg/dL) 146 H (75-99) mg/dL Total Protein (6.3-8.2) g/dL Albumin (3.5-5.0) g/dL Assessment and Plan (1) Borderline hypertension Status: Acute (2) Cannabis abuse, daily use Status: Acute (3) Family history of early CAD Status: Acute (4) Hypertriglyceridemia Status: Acute (5) Status post aortic valve replacement with bioprosthetic valve Status: Acute Plan: From cardiology's perspective, patient may be able to be discharged home today. We will make him a follow-up appointment in the office post discharge. DNP note has been reviewed, I agree with a documented findings and plan of care. Patient was seen and examined.
--- NOTE | 2016-10-14 11:40 | OP ---
DATE OF SERVICE: 10/04/2016 SURGEON: Jay Nichole MD SURFACE MINER: PREOPERATIVE DIAGNOSIS: Severe aortic insufficiency. POSTOPERATIVE DIAGNOSIS: Severe aortic insufficiency. OPERATION: Aortic valve replacement with a # 27 mm magna ease bioprosthetic aortic valve and intraoperative KHANG. ANESTHESIA: General. ESTIMATED BLOOD LOSS: 500 mL. SPECIMENS REMOVED: COMPLICATIONS: OPERATIVE FINDINGS: DESCRIPTION OF PROCEDURE: The patient was brought to the operative room and placed in supine position. After administration of general endotracheal anesthetic, a Quincy-Johnny catheter, arterial line, adequate IV access and a Amaya catheter, patient was carefully prepped and draped in a sterile fashion using beta paint and sterile towels. Midline incision in chest made, sternum divided. Pericardium was opened. Heart size was mildly enlarged. The aorta was soft. Patient was then heparinized to an ACT greater than 480. The aorta and vena cava were cannulated. Antegrade and retrograde cardioplegia catheters were positioned in the ascending aorta and coronary sinus. The patient was placed on bypass, crossclamp placed. The heart arrested with 1 liter of antegrade followed by 500 mL retrograde cardioplegia. Retrograde cardioplegia was delivered 3 to 500 mL at the end of each 20 minute interval. A transverse aortotomy incision was made 2 cm distal to the take off of the right coronary artery. Hand-held retractor was placed. Aortic valve was identified. It was a bicuspid valve with good opening, significant calcification on it but good opening, but severe aortic insufficiency. The valve leaflets were carefully excised and sent to pathology for further examination. It sized to a 27 mm magna millimeters magna ease bioprosthetic aortic valve. The valve was brought into the field, prepared in the usual fashion. 2-0 Tycron pledgeted sutures were placed ventricularly based circumferentially. These were then passed through the sewing cuff of the valve which was then seated and seated well. All sutures were then secured using the cor knot ligature system. At this point the aortotomy incision was closed in a double layered pledgeted 4-0 Prolene vertical mattress followed by an over and over stitch from both sides. Patient was then placed head down and complete deairing maneuvers were performed 3 times. 1 liter of warm blood retrograde cardioplegia was run. Crossclamp was removed. Once beating normal sinus rhythm patient was brought off bypass. Came off bypass uneventfully with good hemodynamics. Protamine delivered. Patient decannulated. Atrial ventricular pacing wires were placed. Mediastinal left pleural chest tubes were placed. At this point, the sternum was closed with four #6 sternal wires and 3 zip tie zip fix sternal closure devices. Skin, subcutaneous tissue, and fascia closed in 3 layers. No complications. The patient tolerated the procedure well. Postoperative KHANG showed excellent valvular function, good left ventricular function and no perivalvular leak and the patient was taken to the ICU in critical but stable condition.
[2016-10-18 12:45] LABS: ABG PCO2 42 mmHg (35-45); ABG PO2 273 mmHg (83-108)
[2016-10-18 12:46] LABS: ABG HCO3 21 mmol/L (21-25); ABG PCO2 48 mmHg (35-45); ABG PH 7.27 (7.35-7.45); ABG PO2 158 mmHg (83-108); ABG TCO2 22 mmol/L (19-24)
[2016-10-18 12:46] LABS: ABG Base Excess -5.5 mmol/L; ABG HCO3 20 mmol/L (21-25); ABG Oxygen Saturation 99.8 % (94-97); ABG TCO2 21 mmol/L (19-24)
[2016-10-18 12:47] LABS: ABG Base Excess -4.1 mmol/L; ABG HCO3 22 mmol/L (21-25); ABG PCO2 53 mmHg (35-45); ABG PH 7.25 (7.35-7.45); ABG PO2 254 mmHg (83-108); ABG TCO2 24 mmol/L (19-24)
[2016-10-18 12:47] LABS: ABG Base Excess -5.5 mmol/L; ABG Oxygen Saturation 99.1 % (94-97)
[2016-10-18 12:48] LABS: ABG Oxygen Saturation 99.8 % (94-97)
[2016-10-18 12:49] LABS: ABG Base Excess -0.6 mmol/L; ABG HCO3 25 mmol/L (21-25); ABG Oxygen Saturation 99.9 % (94-97); ABG PCO2 45 mmHg (35-45); ABG PH 7.35 (7.35-7.45); ABG PO2 292 mmHg (83-108); ABG TCO2 26 mmol/L (19-24)
[2016-10-18 12:50] LABS: ABG Base Excess -2.1 mmol/L; ABG HCO3 23 mmol/L (21-25); ABG Oxygen Saturation 99.8 % (94-97); ABG PCO2 42 mmHg (35-45); ABG PH 7.36 (7.35-7.45); ABG PO2 238 mmHg (83-108); ABG TCO2 24 mmol/L (19-24)
[2016-10-18 12:51] LABS: ABG Base Excess -2.3 mmol/L; ABG HCO3 23 mmol/L (21-25); ABG Oxygen Saturation 90.8 % (94-97); ABG PCO2 43 mmHg (35-45); ABG PH 7.34 (7.35-7.45); ABG PO2 64 mmHg (83-108); ABG TCO2 24 mmol/L (19-24)
[2016-10-18 12:52] LABS: ABG Base Excess -1.9 mmol/L; ABG HCO3 22 mmol/L (21-25); ABG Oxygen Saturation 95.7 % (94-97); ABG PCO2 35 mmHg (35-45); ABG PH 7.41 (7.35-7.45); ABG PO2 78 mmHg (83-108); ABG TCO2 23 mmol/L (19-24)
== END 2016-10-09 14:43 | disposition home health service (06) | DRG 221 ==
LOC: 2ORMAIN 07:28 → 6ICU 14:03 → 6SEL 10-07 17:44
PROVIDERS: ADMIT Thoracic Surgery (Cardiothoracic Vascular Surgery); ATTEND Thoracic Surgery (Cardiothoracic Vascular Surgery)
PROC: 5A1221Z Performance of Cardiac Output, Continuous (ICD-10-PCS; 2016-10-04)
PROC: B24BZZ4 Ultrasonography of Heart with Aorta, Transesophageal (ICD-10-PCS; 2016-10-04)
PROC: 02RF08Z Replacement of Aortic Valve with Zooplastic Tissue, Open Approach (ICD-10-PCS; principal; 2016-10-04 10:00)
DX: Q23.1 Congenital insufficiency of aortic valve (principal); I10 Essential (primary) hypertension; I25.10 Atherosclerotic heart disease of native coronary artery without angina pectoris; E78.1 Pure hyperglyceridemia; F12.20 Cannabis dependence, uncomplicated; F41.9 Anxiety disorder, unspecified; E78.5 Hyperlipidemia, unspecified; K21.9 Gastro-esophageal reflux disease without esophagitis; G43.909 Migraine, unspecified, not intractable, without status migrainosus; M19.91 Primary osteoarthritis, unspecified site; M50.30 Other cervical disc degeneration, unspecified cervical region; F32.9 Major depressive disorder, single episode, unspecified; L98.9 Disorder of the skin and subcutaneous tissue, unspecified; R09.02 Hypoxemia; Z87.891 Personal history of nicotine dependence; Z79.899 Other long term (current) drug therapy; Z82.49 Family history of ischemic heart disease and other diseases of the circulatory system
CPT/HCPCS: 71010; 71020; 80048; 80053; 82330; 82805; 83735; 84100; 85025; 85027; 85520; 85610; 85730; 86850; 86891; 86900; 86901; 86920; 88302; 88305; 93005; 94002; 94003; 94640

== ENCOUNTER → 2016-11-28 | Outpatient (CLI) | payer BC ==
--- NOTE | 2016-11-28 15:20 | CT ---
EXAMINATION TYPE: CT chest wo con DATE OF EXAM: 11/28/2016 COMPARISON: NONE HISTORY: Dehiscence of closure of sternum after open heart surgery [address] DLP: 776.00 mGycm. Automated Exposure Control for Dose Reduction was Utilized. TECHNIQUE: CT scan of the thorax is performed without IV contrast. FINDINGS: LUNGS: Some linear scarring in the right lower lobe near diaphragm is present. There is elevated righ t hemidiaphragm seen. There is elongated 8 x 3 mm nodule left lung near level of the fissure on axial image 29. There is no pleural effusion or pneumothorax seen bilaterally. The tracheobronchial tesfaye e is patent. MEDIASTINUM: Lack of IV contrast is noted to limit evaluation for mediastinal and especially hilar ad enopathy. There is slightly prominent pericarinal lymph node on axial image 22 is incidentally noted. There are no definitive greater than 1 cm hilar or mediastinal lymph nodes. No cardiomegaly or per icardial effusion is seen. Metallic aortic valve is present. Sternal wires and mediastinal clips are seen. There is slight increased separation or widening inferiorly measuring up to 16 mm on coronal im age 22. Overlying anterior linear soft tissue or scarring is felt present. Inflammatory change is not excluded. No well-formed fluid collection or abscess is seen. There is additional heterogeneous soft tissue deep to the sternum could reflect scarring in the anterior superior mediastinum. Small subcen timeter nodules some calcified are seen at this level. OTHER: Liver is diffusely low dense consistent with fatty infiltration. IMPRESSION: Slightly more prominent widening or nonhealing of inferior portion of sternotomy. No well -formed fluid collection or abscess is seen.
== END | disposition home or self-care (01) ==
LOC: RADCTMAIN 14:45
PROVIDERS: ATTEND Thoracic Surgery (Cardiothoracic Vascular Surgery)
DX: T81.32XD Disruption of internal operation (surgical) wound, not elsewhere classified, subsequent encounter (principal); Z98.890 Other specified postprocedural states; Z88.5 Allergy status to narcotic agent
CPT/HCPCS: 71250

== ENCOUNTER → 2017-01-22 | Outpatient (CLI) | payer BC ==
[2017-01-22 14:56] LABS: Appearance,Urine Clear (Clear); Bilirubin,Urine Negative (Negative); Glucose,Urine (UA) Negative (Negative); Ketones,Urine Negative (Negative); Leukocyte Esterase,Urine Negative (Negative); Nitrite,Urine Negative (Negative); PH, Urine 5.5 (5.0-8.0); Protein,Urine Negative (Negative); Specific Gravity,Urine 1.013 (1.001-1.035); UA Billing (MACRO vs. MICRO) CHEM; Urobilinogen,Urine <2.0 mg/dL (<2.0)
[2017-01-22 15:28] LABS: Anisocytosis Slight; Basophils # (A) 0.1 k/uL (0-0.2); Basophils % (A) 1 %; CH 27.1; CHCM 33.1; Eosinophils # (A) 0.4 k/uL (0-0.7); Eosinophils % (A) 3 %; HCT 45.7 % (39.0-53.0); HDW 2.87; HGB 14.9 gm/dL (13.0-17.5); Luc # (Auto) 0.19; Luc % (Auto) 2; Lymphocytes # (A) 2.5 k/uL (1.0-4.8); Lymphocytes % (A) 24 %; MCH 26.8 pg (25.0-35.0); MCHC 32.7 g/dL (31.0-37.0); Mean Platelet Volume 8.2; Monocytes # (A) 0.5 k/uL (0-1.0); Monocytes % (A) 5 %; Neutrophils # (A) 6.9 k/uL (1.3-7.7); Neutrophils % (A) 65 %; RBC 5.57 m/uL (4.30-5.90); RDW 17.7 % (11.5-15.5); WBC 10.6 k/uL (3.8-10.6); WBC (Perox) 10.45
[2017-01-22 15:36] LABS: Prothrombin Time 10.3 sec (9.0-12.0)
[2017-01-22 15:37] LABS: Anion Gap 12 mmol/L; Blood Urea Nitrogen 12 mg/dL (9-20); Carbon Dioxide 25 mmol/L (22-30); Chloride 105 mmol/L (98-107); Glucose 93 mg/dL (74-99); Magnesium 1.9 mg/dL (1.6-2.3); Non-African American GFR(MDRD) >60 (>60 ml/min/1.73 sqM); Potassium 5.2 mmol/L (3.5-5.1); Sodium 142 mmol/L (137-145)
== END | disposition home or self-care (01) ==
LOC: LABPAT 14:23
PROVIDERS: ATTEND Thoracic Surgery (Cardiothoracic Vascular Surgery)
DX: Z01.812 Encounter for preprocedural laboratory examination (principal); T81.32XA Disruption of internal operation (surgical) wound, not elsewhere classified, initial encounter
CPT/HCPCS: 80051; 81003; 82565; 82947; 83735; 84520; 85025; 85610; 85730

== ENCOUNTER 2017-02-02 13:15 | Inpatient (IN) | payer BC ==
[2017-02-01 10:51] VITALS: BMI 36.2
[~2017-02-02 13:15] MED LIST changes: -ALBUMIN HUMAN 25% 50 ML IV ONE; -ALBUMIN HUMAN 5% 500 ML IVPB ONE; -AMINOCAPROIC ACID 250 MG/ML 20 ML VIAL IV ONE; -AMINOCAPROIC ACID 5,000 MG in DEXTROSE 5% IN WATER 50 ML IV ONE; -ASPIRIN 325 MG TAB PO ONE; -ATORVASTATIN 10 MG TAB PO ONE; -CALCIUM CHLORIDE 100 MG/ML 10 ML SYRINGE IV ONE; -CHLORHEXIDINE GLUCONATE 15 ML CUP MUCOUS MEM ONE; -CLEVIDIPINE BUTYRATE 25 MG in EMPTY BAG 1 BAG IV ONE; +DEXAMETHASONE SOD PHOSPHATE 10 MG/ML 1 ML VIAL IV ONE; -DEXTROSE 5% IN WATER 1,000 ML with POTASSIUM CHLORIDE 110 MEQ, MAGNESIUM SULFATE 16 MEQ... IV ONE; -DEXTROSE 5% IN WATER 1,000 ML with POTASSIUM CHLORIDE 25 MEQ, SODIUM CHLORIDE 4MEQ/ML V... IV ONE; -HEPARIN SODIUM 1,000 UNIT/ML VIAL IV ONE; -HEPARIN SODIUM,PORCINE 5,000 UNIT in SODIUM CHLORIDE 0.9% 500 ML IV ONE; -INSULIN REGULAR 100 UNIT in SODIUM CHLORIDE 0.9% 100 ML IV ONE; -LACTATED RINGERS 1,000 ML IV ONE; -MAGNESIUM SULFATE MG 500 MG/ML VIAL IV ONE; -MANNITOL 25% 12.5 GM/50 ML VIAL IV ONE; -METOPROLOL TARTRATE 12.5 MG TAB PO ONE; +MIDAZOLAM 2 MG/2 ML VIAL IV PRN; -MUPIROCIN 2% OINT 22 GM TUBE NASAL ONE; -NITROGLYCERIN-D5W PMX 25 MG/250 ML BTL IV ONE; -NITROGLYCERIN-D5W PMX 50 MG in DEXTROSE/WATER 1 250ML.BAG IV ONE; -NOREPINEPHRINE 4 MG in SODIUM CHLORIDE 0.9% 250 ML IV ONE; -PHENYLEPHRINE 40 MG in SODIUM CHLORIDE 0.9% 250 ML IV ONE; -PHENYLEPHRINE-0.9% NACL SYG 1 MG/10 ML SYRINGE IV ONE; -PROPOFOL 50 ML IV ONE; -PROTAMINE SULFATE 10 MG/ML 25 ML VIAL IV ONE; -PROTAMINE SULFATE 250 MG in EMPTY BAG 1 BAG IV ONE; +SCOPOLAMINE 1.5MG/72HR PATCH TRANSDERM ONE; -SODIUM BICARB 8.4% 50 ML SYR (1 MEQ/ML) IV ONE; -SODIUM CHLORIDE 0.9% 1,000 ML IV ONE; -SODIUM CHLORIDE 0.9% IRRIGATIO 1,000 ML IRRIGATION ONE; +ceFAZolin 2 GM in SODIUM CHLORIDE 0.9% 100 ML IVPB ONE; -ceFAZolin 2,000 MG in SODIUM CHLORIDE 0.9% 30 ML IVPB ONE
[2017-02-02] MEDS ORDERED: LIDOCAINE 1% 20 ML VIAL (10MG/ML) FOR IV START INTRADERMA ONE (15:30)
[2017-02-02] MEDS: LACTATED RINGERS 1,000 ML IV SCH ×2 (15:36→23:28)
[2017-02-02] MEDS: ONDANSETRON 4 MG/2 ML VIAL IVP ONE ×2 (15:36→20:51)
[2017-02-02] MEDS ORDERED: SUFentanil 50 MCG/ML 2ML AMP ONE (16:15)
[2017-02-02] MEDS ORDERED: NEOSTIGMINE 1 MG/ML 10 ML VIAL ONE (16:15)
[2017-02-02] MEDS ORDERED: LABETALOL 5 MG/ML VIAL MDV ONE (16:15)
[2017-02-02] MEDS ORDERED: PROPOFOL 10 MG/ML 20 ML VIAL IV ONE (16:15)
[2017-02-02] MEDS ORDERED: fentaNYL (PF) 50 MCG/ML 2 ML AMP ONE (16:15)
[2017-02-02] MEDS ORDERED: SUCCINYLCHOLINE CHLORIDE VIAL 200 MG/10 ML VIAL IV ONE (16:15)
[2017-02-02] MEDS ORDERED: LIDOCAINE 1% INJ 10MG/ML (20 ML MDV) ONE (16:15)
[2017-02-02] MEDS ORDERED: MIDAZOLAM 2 MG/2 ML VIAL ONE (16:15)
[2017-02-02] MEDS ORDERED: ROCURONIUM BROMIDE 10 MG/ML 10 ML VIAL IV ONE (16:15)
[2017-02-02] MEDS ORDERED: ASPIRIN 325 MG TAB PO ONE (16:15)
[2017-02-02] MEDS ORDERED: GLYCOPYRROLATE 0.2 MG/ML 2 ML VIAL ONE (16:15)
[2017-02-02] MEDS: HYDROmorphone 1 MG/ML 1 ML SYRINGE IVP PRN ×5 (19:45→23:34)
[2017-02-02] MEDS ORDERED: ONDANSETRON 4 MG/2 ML VIAL IVP PRN (20:14)
[2017-02-02] MEDS ORDERED: oxyCODONE-APAP 7.5-325MG 1 EACH TAB PO PRN (20:14)
[2017-02-02] MEDS ORDERED: DEXTROSE 5%-0.45% NACL 1,000 ML IV SCH (20:14)
[2017-02-02] MEDS ORDERED: METOCLOPRAMIDE 5 MG/ML 2 ML VIAL IVP PRN (20:14)
[2017-02-02] MEDS ORDERED: BENZOCAINE/MENTHOL LOZENG 1 EACH LOZENGE MUCOUS MEM PRN (20:14)
[2017-02-02] MEDS: MEPERIDINE 50 MG/ML SYRINGE IVP ONE ×2 (20:25→20:35)
--- NOTE | 2017-02-02 20:45 | XR ---
EXAMINATION TYPE: XR chest 1V portable DATE OF EXAM: 02/02/2017 COMPARISON: 10/17/2016 HISTORY: Recent surgery TECHNIQUE: Single frontal view of the chest is obtained. FINDINGS: Single portable view of the chest shows no heart failure nor confluent pneumonic infiltrat e. There is some tubing over the mid chest. There are chest leads. There is no pneumothorax. Costophr enic angles are clear. There are sternal wires. IMPRESSION: No active cardiopulmonary disease. No adverse change compared to old exam.
[2017-02-02] MEDS: KETOROLAC 30 MG/ML 1 ML VIAL IVP PRN (20:51)
[2017-02-02] MEDS ORDERED: LACTATED RINGERS 1,000 ML IV ONE (20:53)
[2017-02-03] MEDS ORDERED: ceFAZolin 2 GM in SODIUM CHLORIDE 0.9% 100 ML IVPB SCH ×2
[2017-02-03] MEDS: ceFAZolin 2 GM in SODIUM CHLORIDE 0.9% 100 ML IVPB SCH ×3 (00:06→15:15)
[2017-02-03] MEDS: KETOROLAC 30 MG/ML 1 ML VIAL IVP PRN ×3 (03:42→15:14)
[2017-02-03] MEDS: HYDROmorphone 1 MG/ML 1 ML SYRINGE IVP PRN ×2 (04:29→08:12)
[2017-02-03 05:56] LABS: Anisocytosis Slight; Basophils % (A) 0 %; CH 27.4; CHCM 33.6; Eosinophils % (A) 0 %; HCT 38.4 % (39.0-53.0); HDW 2.83; HGB 12.4 gm/dL (13.0-17.5); Luc # (Auto) 0.07; Luc % (Auto) 1; Lymphocytes # (A) 1.2 k/uL (1.0-4.8); Lymphocytes % (A) 9 %; MCH 26.5 pg (25.0-35.0); MCHC 32.4 g/dL (31.0-37.0); Mean Platelet Volume 8.6; Microcytosis Slight; Monocytes # (A) 0.5 k/uL (0-1.0); Monocytes % (A) 4 %; Neutrophils # (A) 11.2 k/uL (1.3-7.7); Neutrophils % (A) 86 %; RBC 4.69 m/uL (4.30-5.90); RDW 17.9 % (11.5-15.5); WBC (Perox) 13.46
[2017-02-03 06:06] LABS: ALT 55 U/L (21-72); AST 34 U/L (17-59); Alkaline Phosphatase 67 U/L (38-126); Anion Gap 12 mmol/L; Blood Urea Nitrogen 16 mg/dL (9-20); Carbon Dioxide 23 mmol/L (22-30); Chloride 102 mmol/L (98-107); Glucose 158 mg/dL (74-99); Magnesium 1.5 mg/dL (1.6-2.3); Non-African American GFR(MDRD) >60 (>60 ml/min/1.73 sqM); Potassium 4.6 mmol/L (3.5-5.1); Sodium 137 mmol/L (137-145); Total Bilirubin 0.3 mg/dL (0.2-1.3)
[2017-02-03] MEDS ORDERED: Magnesium Replacement Protocol 1 EACH MISC MISCELLANE PRN (06:38)
[2017-02-03] MEDS ORDERED: PANTOPRAZOLE 40 MG TABLET PO SCH (07:30)
--- NOTE | 2017-02-03 07:35 | XR ---
EXAMINATION TYPE: XR chest 1V portable DATE OF EXAM: 02/03/2017 Comparison: 02/02/2017 Clinical History: 46-year-old male Post Operative Sternal plating Findings: Median sternotomy wires are present. An ovoid density projects over the mid chest but suspected to re late to the sternal plating. Heart and upper limits of normal in size. On the vasculature and aorta within normal limits. Some pat frederick left basilar opacity remains. Impression: Some patchy left basilar opacity remains, likely atelectasis rather than infiltrate.
[2017-02-03] MEDS: MAGNESIUM SULFATE-D5W PMX 1 GM in DEXTROSE/WATER 1 100ML.BAG IVPB SCH ×2 (07:47→11:01)
[2017-02-03] MEDS ORDERED: HEPARIN SODIUM,PORCINE 5,000 UNIT/ML 1 ML VIAL SQ SCH (08:00)
--- NOTE | 2017-02-03 08:53 | P.CRDCN ---
History of Present Illness Consult date: 02/03/17 Chief complaint: Chest discomfort History of present illness: This is a pleasant 46-year-old gentleman who I follow was an outpatient who underwent recently aortic valve replacement using a bioprosthetic aortic valve for symptomatic severe AI. The post operation course was and complicated and the patient was discharged from the hospital in stable medical condition. He continues to have chest discomfort and he underwent computed tomography scan of the chest which showed what it seems to be chest dehiscence. He was admitted to the hospital yesterday and underwent surgery again by Dr. Nichole. On follow-up with the patient today, he is feeling much better in terms of chest discomfort. He denies having any shortness of breath. No dizziness or lightheadedness. No syncope. The chest x-ray from this morning showed no acute finding. He continues to be on dual antiplatelet therapy along with a statin. Past Medical History Past Medical History: GERD/Reflux, Hyperlipidemia, Musculoskeletal Disorder, Skin Disorder Additional Past Medical History / Comment(s): states "sternum not healing after heart valve surgery," Hx migraines, degenerative discs in neck, bone spurs, eczema, leaking heart valve History of Any Multi-Drug Resistant Organisms: None Reported Past Surgical History: Adenoidectomy, Hernia Repair, Tonsillectomy Additional Past Surgical History / Comment(s): Aortic valve replace 10-13-16,KHANG , Neck disc c4/c5 Past Anesthesia/Blood Transfusion Reactions: No Reported Reaction Additional Past Anesthesia/Blood Transfusion Reaction / Comment(s): vertigo with motion,no hx blood transfusion. Past Psychological History: Bipolar Smoking Status: Current every day smoker Past Alcohol Use History: Rare Past Drug Use History: Marijuana Additional Drug Use History / Comment(s): SMOKES 3 JOINTS DAILY, has medical marijuana card. - Past Family History Mother Family Medical History: No Reported History Medications and Allergies Home Medications Medication Instructions Recorded Confirmed Type clonazePAM [KlonoPIN] 1 mg PO BID PRN 09/14/15 02/02/17 History Sertraline [Zoloft] 100 mg PO QAM 04/21/16 02/02/17 History Lisinopril [Zestril] 10 mg PO QAM 01/24/17 02/02/17 History Metoprolol Tartrate [Lopressor] 25 mg PO QAM 01/24/17 02/02/17 History oxyCODONE-APAP 7.5-325MG [Percocet 1 tab PO TID PRN 01/24/17 02/02/17 History 7.5-325 mg] Omeprazole 20 mg PO DAILY PRN 02/02/17 02/02/17 History Allergies Allergy/AdvReac Type Severity Reaction Status Date / Time morphine AdvReac aggitation Verified 02/01/17 10:27 Physical Exam Vitals: Vital Signs Temp Pulse Pulse Pulse Resp BP BP 02/03/17 08:00 96.7 F L 77 16 02/03/17 04:00 18 02/03/17 03:45 68 18 141/88 02/03/17 01:15 97 F L 82 18 141/83 02/03/17 00:15 71 18 134/66 02/03/17 00:00 18 02/02/17 23:15 77 18 137/92 02/02/17 22:45 97.2 F L 72 18 138/82 02/02/17 22:15 78 18 156/91 02/02/17 22:00 86 18 158/97 02/02/17 21:45 85 18 152/96 02/02/17 21:30 97.7 F 78 18 154/97 02/02/17 21:03 78 16 150/84 02/02/17 20:51 66 16 140/78 02/02/17 20:37 66 16 165/84 02/02/17 20:33 72 16 189/90 02/02/17 20:17 66 16 190/97 02/02/17 20:02 80 16 197/109 02/02/17 19:41 80 16 160/82 02/02/17 19:33 80 16 160/82 02/02/17 19:17 81 16 155/77 02/02/17 18:59 97.2 F L 76 16 161/87 02/02/17 15:30 97.6 F 71 18 145/99 BP Pulse Ox 02/03/17 08:00 140/77 94 L 02/03/17 04:00 02/03/17 03:45 95 02/03/17 01:15 95 02/03/17 00:15 93 L 02/03/17 00:00 02/02/17 23:15 95 02/02/17 22:45 94 L 02/02/17 22:15 95 08/11/17 22:00 93 L 02/02/17 21:45 93 L 02/02/17 21:30 95 02/02/17 21:03 97 02/02/17 20:51 97 02/02/17 20:37 97 02/02/17 20:33 97 02/02/17 20:17 97 02/02/17 20:02 97 02/02/17 19:41 96 02/02/17 19:33 96 02/02/17 19:17 93 L 02/02/17 18:59 94 L 02/02/17 15:30 93 L Intake and Output 02/02/17 02/03/17 02/03/17 22:59 06:59 14:59 Intake Total 2200 550 740 Output Total 350 1490 640 Balance 1850 -940 100 Intake: IV 2200 500 Dextrose 5%-0.45% NaCl 1, 400 000 ml @ 50 mls/hr IV . Q20H ABHIJIT Rx#:[id number] Magnesium Sulfate-D5w Pmx 100 1 gm In Dextrose/Water 1 100ml.bag @ 100 mls/hr IVPB Q1H ABHIJIT Rx#: [id number] Intake, IV Titration 550 Amount Dextrose 5%-0.45% NaCl 1, 450 000 ml @ 50 mls/hr IV . Q20H ABHIJIT Rx#:[id number] ceFAZolin 2 gm In Sodium 100 Chloride 0.9% 100 ml @ 100 mls/hr IVPB Q8HR ABHIJIT Rx#:[id number] Oral 240 Output: Drainage 90 40 Lower Chest 90 40 Urine 250 1400 600 Estimated Blood Loss 100 Other: Voiding Method Indwelling Catheter Weight 117.934 kg 124.4 kg - Constitutional General appearance: no acute distress - Respiratory Respiratory: bilateral: CTA - Cardiovascular Rhythm: regular Heart sounds: normal: S1, S2 Abnormal Heart Sounds: systolic murmur Results 02/03/17 05:23 02/03/17 05:23 Cardiac Enzymes 02/03/17 Range/Units 05:23 AST 34 (17-59) U/L CBC 02/03/17 Range/Units 05:23 WBC 13.0 H (3.8-10.6) k/uL RBC 4.69 (4.30-5.90) m/uL Hgb 12.4 L (13.0-17.5) gm/dL Hct 38.4 L (39.0-53.0) % Plt Count 208 (150-450) k/uL Comprehensive Metabolic Panel 02/02/17 02/03/17 Range/Units 15:33 05:23 Sodium 137 (137-145) mmol/L Potassium 4.5 4.6 (3.5-5.1) mmol/L Chloride 102 (98-107) mmol/L Carbon Dioxide 23 (22-30) mmol/L BUN 16 (9-20) mg/dL Creatinine 0.79 (0.66-1.25) mg/dL Glucose 158 H (74-99) mg/dL Calcium 9.0 (8.4-10.2) mg/dL AST 34 (17-59) U/L ALT 55 (21-72) U/L Alkaline Phosphatase 67 (38-126) U/L Total Protein 6.0 L (6.3-8.2) g/dL Albumin 3.6 (3.5-5.0) g/dL Current Medications Generic Name Dose Route Start Last Admin Trade Name Freq PRN Reason Stop Dose Admin Aspirin 325 mg 02/03/17 09:00 02/03/17 08:16 Aspirin PO 325 mg DAILY ABHIJIT Administration Atorvastatin Calcium 40 mg 02/03/17 09:00 02/03/17 08:16 Lipitor PO 40 mg DAILY ABHIJIT Administration Benzocaine/Menthol 1 each 02/02/17 20:14 Cepacol Lozenge MUCOUS MEM Q2H PRN Sore Throat Clonazepam 1 mg 02/03/17 09:00 Klonopin PO BID PRN Anxiety Clopidogrel Bisulfate 75 mg 02/03/17 09:00 02/03/17 08:16 Plavix PO 75 mg DAILY ABHIJIT Administration Heparin Sodium (Porcine) 5,000 unit 02/03/17 08:00 02/03/17 08:17 Heparin SQ 5,000 unit Q8HR ABHIJIT Administration Hydromorphone HCl 0.5 mg 02/02/17 20:14 02/03/17 08:12 Dilaudid IVP 0.5 mg Q4HR PRN Administration Moderate Pain Cefazolin Sodium 2 gm/ Sodium 100 mls @ 100 mls/hr 02/03/17 00:00 02/03/17 00 :06 Chloride IVPB 02/04/17 08:59 100 mls/hr Q8HR ABHIJIT Administration Magnesium Sulfate/Dextrose 1 100 mls @ 100 mls/hr 02/03/17 07:00 02/03/17 07: 47 gm/ IV Solution IVPB 02/03/17 08:59 100 mls/hr Q1H ABHIJIT Administration Ketorolac Tromethamine 15 mg 02/02/17 20:14 02/03/17 03:42 Toradol IVP 02/07/17 20:15 15 mg Q6H PRN Administration Moderate Pain Magnesium Hydroxide 2,400 mg 02/03/17 19:22 Milk Of Magnesia PO BID PRN Constipation Metoclopramide HCl 10 mg 02/02/17 20:14 Reglan IVP Q4H PRN Nausea And Vomiting Metoprolol Tartrate 25 mg 02/03/17 09:00 02/03/17 08:16 Lopressor PO 25 mg DAILY ABHIJIT Administration Miscellaneous Information 1 each 02/03/17 06:38 Magnesium Per Protocol MISCELLANE DAILY PRN Per Protocol Protocol Ondansetron HCl 4 mg 02/02/17 20:14 Zofran IVP Q6HR PRN Nausea And Vomiting Oxycodone/Acetaminophen 1 each 02/02/17 20:14 Percocet 7.5-325 PO Q8HR PRN Pain Pantoprazole Sodium 40 mg 02/03/17 07:30 02/03/17 06:29 Protonix PO 40 mg [id number] ABHIJIT Administration Senna/Docusate Sodium 2 each 02/03/17 21:00 Senokot-S PO HS ABHIJIT Sertraline HCl 100 mg 02/03/17 09:00 02/03/17 08:16 Zoloft PO 100 mg DAILY ABHIJIT Administration Intake and Output 02/02/17 02/03/17 02/03/17 22:59 06:59 14:59 Intake Total 2200 550 740 Output Total 350 1490 640 Balance 1850 -940 100 Intake: IV 2200 500 Dextrose 5%-0.45% NaCl 1, 400 000 ml @ 50 mls/hr IV . Q20H ABHIJIT Rx#:[id number] Magnesium Sulfate-D5w Pmx 100 1 gm In Dextrose/Water 1 100ml.bag @ 100 mls/hr IVPB Q1H ABHIJIT Rx#: [id number] Intake, IV Titration 550 Amount Dextrose 5%-0.45% NaCl 1, 450 000 ml @ 50 mls/hr IV . Q20H ABHIJIT Rx#:[id number] ceFAZolin 2 gm In Sodium 100 Chloride 0.9% 100 ml @ 100 mls/hr IVPB Q8HR ABHIJIT Rx#:[id number] Oral 240 Output: Drainage 90 40 Lower Chest 90 40 Urine 250 1400 600 Estimated Blood Loss 100 Other: Voiding Method Indwelling Catheter Weight 117.934 kg 124.4 kg 02/03/17 05:23 02/03/17 05:23 Assessment and Plan Plan: This is a pleasant 46-year-old gentleman who is status post aVR who developed chest distress since and he underwent surgery yesterday. He is a stable hemodynamically. He is also asymptomatic. The chest x-ray showed no acute finding. We'll continue the patient on dual antiplatelet therapy and statin and follow- up with him.
[2017-02-03] MEDS ORDERED: ASPIRIN 325 MG TAB PO SCH (09:00)
[2017-02-03] MEDS ORDERED: CLOPIDOGREL 75 MG TAB PO SCH (09:00)
[2017-02-03] MEDS ORDERED: METOPROLOL TARTRATE 25 MG TAB PO SCH (09:00)
[2017-02-03] MEDS ORDERED: clonazePAM 1 MG TAB PO PRN (09:00)
[2017-02-03] MEDS ORDERED: ATORVASTATIN 40 MG TAB PO SCH (09:00)
[2017-02-03] MEDS ORDERED: SERTRALINE 100 MG TAB PO SCH (09:00)
[2017-02-03 11:37] VITALS: RESP 20
[2017-02-03 15:16] VITALS: TEMP 98.2
[2017-02-03] MEDS ORDERED: oxyCODONE-APAP 7.5-325MG 1 EACH TAB PO PRN (15:26)
--- NOTE | 2017-02-03 15:53 | P.DS ---
Providers Date of admission: 02/02/17 18:59 Attending physician: Jay Nichole Consults: 02/02/17 20:14 Consult Physician Routine Consulting Provider: Matthew Katz Consult Reason/Comments: Medical Managment Do you want consulting provider notified?: Yes Consult Physician Routine Consulting Provider: Eric Mullins Consult Reason/Comments: Chief Administrative Officer Consult: post cardiac surgery Do you want consulting provider notified?: Yes Primary care physician: Stated None Hospital Course: FINAL DIAGNOSIS: 1. Sternal wire dehiscence 2. Status post bioprosthetic aortic valve replacement 3. Aortic insufficiency 4. Hypertension 5. History of migraines 6. Continued marijuana use PRINCIPAL PROCEDURE: 1. Revision sternal wound, removal of sternal wires 2. Implant sternal plating system HISTORY OF PRESENT ILLNESS: This 46-year-old gentleman was being followed on an outpatient basis by Dr. Nichole as he underwent aortic valve replacement using a bioprosthetic aortic valve for symptomatic aortic insufficiency in September 2016. He continued to have unrelieved chest discomfort and feeling in his sternum clicking. He had been noncompliant with sternal precautions. He underwent a computed tomography scan of the chest which demonstrated apparent sternal wire dehiscence. He was recommended to have surgery to remove the sternal wires and replace with an implanted plating system. The surgery was described in detail to the patient, all risks and benefits were explained, and the patient agreed to proceed with surgery. HOSPITAL COURSE: The patient was brought to the hospital on 02/02/2017, taken to the preoperative area, prepared in the usual fashion, and was taken to the operating room where Dr. Nichole performed a revision of his sternal wound with removal of sternal wires and an implant of the sternal plating system. Upon completion of the surgery the patient was extubated, taken to the recovery room where he was recovered, and admitted to [address] [place] [address] for further monitoring and recovery. His pain was controlled. He was tolerating his diet. He was ambulating in the hallway, and was ready to be discharged home on postoperative day #1. He was to go home with a KALYN drain in place, was shown how to empty it, and it will be removed when he follows up with Dr. Nichole. He was given written and verbal instruction regarding his medications, activity limitations, signs and symptoms requiring physician notification, and follow-up appointments COMPLICATIONS: The patient is no postoperative complications. DISCHARGE INSTRUCTIONS: 1. No driving until physician gives their ok. 2. The patient should sleep in their own bed, no medical bed needed. 3. Stairs are not an issue. If the bedroom is upstairs, it is advised that the patient go up at night and down in the morning for the first week. Go slowly, using handrail and take 1 step at a time. 4. Heart hugger is to be worn 100% of the time until physician discontinues.( except when showering) 5. No lifting, pushing, or pulling more than 10 pounds for 12 weeks. The physician will advise of any restriction changes. 6. The patient is expected to continue the prescribed walking program. 7. Continue pain control per as needed orders. 8. Continue with incentive spirometry and splinting/heart hugger until otherwise directed by the physician. 9. Must shower daily using liquid antibacterial soap. 10. Routine sternal incision care. No powders, lotions, ointments on incisions. 11. Please call surgeon/PROGRAMMING INSTRUCTOR for temp greater than 101 F or purulent drainage from incisions. 12. Empty KALYN drain twice daily. Plan - Discharge Summary New Discharge Prescriptions: Continue clonazePAM [KlonoPIN] 1 mg PO BID PRN PRN Reason: Anxiety Sertraline [Zoloft] 100 mg PO QAM Aspirin 325 mg PO DAILY #30 tab Atorvastatin [Lipitor] 40 mg PO DAILY #30 tab Clopidogrel [Plavix] 75 mg PO DAILY #30 tab oxyCODONE-APAP 7.5-325MG [Percocet 7.5-325 mg] 1 tab PO TID PRN PRN Reason: Pain Metoprolol Tartrate [Lopressor] 25 mg PO QAM Lisinopril [Zestril] 10 mg PO QAM Omeprazole 20 mg PO DAILY PRN PRN Reason: Heartburn Discharge Medication List clonazePAM [KlonoPIN] 1 mg PO BID PRN 09/14/15 [History] Sertraline [Zoloft] 100 mg PO QAM 04/21/16 [History] Aspirin 325 mg PO DAILY #30 tab 10/09/16 [Rx] Atorvastatin [Lipitor] 40 mg PO DAILY #30 tab 10/09/16 [Rx] Clopidogrel [Plavix] 75 mg PO DAILY #30 tab 10/09/16 [Rx] Lisinopril [Zestril] 10 mg PO QAM 01/24/17 [History] Metoprolol Tartrate [Lopressor] 25 mg PO QAM 01/24/17 [History] oxyCODONE-APAP 7.5-325MG [Percocet 7.5-325 mg] 1 tab PO TID PRN 01/24/17 [ History] Omeprazole 20 mg PO DAILY PRN 02/02/17 [History] Follow up Appointment(s)/Referral(s): Jay Nichole MD [STAFF PHYSICIAN] - 1 Week Discharge Disposition: HOME SELF-CARE
[2017-02-03 16:01] VITALS: BP 160/63; PULSE 71
--- NOTE | 2017-02-03 16:47 | P.CONS ---
History of Present Illness - Reason for Consult Leukocytosis - History of Present Illness Patient is a pleasant 46-year-old gentleman came in with diet he is to sternal wound. Patient underwent a I did well the placement with a bioprosthetic attic well patient apparently was noncompliant with post discharge recommendations patient ended up coming back because of chest antihistamines and patient underwent surgical intervention for that antihistamines. Patient is clinically doing well, denied any dysuria denied any nausea denied any vomiting denied any cough. Patient does not have any other signs or symptoms of sepsis and surgical site area appears to be clean Review of Systems IREVIEW OF SYSTEMS: CONSTITUTIONAL: No fever, no malaise, no fatigue. Patient was comparing of chest wall pain HEENT: No recent visual problems or hearing problems. Denied any sore throat. CARDIOVASCULAR: No chest pain, orthopnea, PND, no palpitations, no syncope. PULMONARY: No shortness of breath, no cough, no hemoptysis. GASTROINTESTINAL: No diarrhea, no nausea, no vomiting, no abdominal pain. Normoactive bowel sounds. NEUROLOGICAL: No headaches, no weakness, no numbness. HEMATOLOGICAL: Denies any bleeding or petechiae. GENITOURINARY: Denies any burning micturition, frequency, or urgency. MUSCULOSKELETAL/RHEUMATOLOGICAL: Denies any joint pain, swelling, or any muscle pain. ENDOCRINE: Denies any polyuria or polydipsia. The rest of the 14-point review of systems is negative. Past Medical History Past Medical History: GERD/Reflux, Hyperlipidemia, Musculoskeletal Disorder, Skin Disorder Additional Past Medical History / Comment(s): states "sternum not healing after heart valve surgery," Hx migraines, degenerative discs in neck, bone spurs, eczema, leaking heart valve History of Any Multi-Drug Resistant Organisms: None Reported Past Surgical History: Adenoidectomy, Hernia Repair, Tonsillectomy Additional Past Surgical History / Comment(s): Aortic valve replace 10-13-16,KHANG , Neck disc c4/c5 Past Anesthesia/Blood Transfusion Reactions: No Reported Reaction Additional Past Anesthesia/Blood Transfusion Reaction / Comm: vertigo with motion,no hx blood transfusion. Past Psychological History: Bipolar Smoking Status: Current every day smoker Past Alcohol Use History: Rare Past Drug Use History: Marijuana Additional Drug Use History / Comment(s): SMOKES 3 JOINTS DAILY, has medical marijuana card. - Past Family History Mother Family Medical History: No Reported History Medications and Allergies Home Medications Medication Instructions Recorded Confirmed Type clonazePAM [KlonoPIN] 1 mg PO BID PRN 09/14/15 02/02/17 History Sertraline [Zoloft] 100 mg PO QAM 04/21/16 02/02/17 History Lisinopril [Zestril] 10 mg PO QAM 01/24/17 02/02/17 History Metoprolol Tartrate [Lopressor] 25 mg PO QAM 01/24/17 02/02/17 History oxyCODONE-APAP 7.5-325MG [Percocet 1 tab PO TID PRN 01/24/17 02/02/17 History 7.5-325 mg] Omeprazole 20 mg PO DAILY PRN 02/02/17 02/02/17 History Allergies Allergy/AdvReac Type Severity Reaction Status Date / Time morphine AdvReac aggitation Verified 02/01/17 10:27 Physical Exam Vitals: Vital Signs Temp Pulse Pulse Resp BP BP BP 02/03/17 16:24 20 02/03/17 15:57 71 160/63 02/03/17 15:15 98.2 F 65 20 170/90 02/03/17 11:36 97.1 F L 66 20 150/90 02/03/17 08:00 96.7 F L 77 16 140/77 02/03/17 04:00 18 02/03/17 03:45 68 18 141/88 02/03/17 01:15 97 F L 82 18 141/83 02/03/17 00:15 71 18 134/66 02/03/17 00:00 18 02/02/17 23:15 77 18 137/92 02/02/17 22:45 97.2 F L 72 18 138/82 02/02/17 22:15 78 18 156/91 02/02/17 22:00 86 18 158/97 02/02/17 21:45 85 18 152/96 02/02/17 21:30 97.7 F 78 18 154/97 02/02/17 21:03 78 16 150/84 02/02/17 20:51 66 16 140/78 02/02/17 20:37 66 16 165/84 02/02/17 20:33 72 16 189/90 02/02/17 20:17 66 16 190/97 02/02/17 20:02 80 16 197/109 02/02/17 19:41 80 16 160/82 02/02/17 19:33 80 16 160/82 02/02/17 19:17 81 16 155/77 02/02/17 18:59 97.2 F L 76 16 161/87 Pulse Ox 02/03/17 16:24 02/03/17 15:57 02/03/17 15:15 99 02/03/17 11:36 96 02/03/17 08:00 94 L 02/03/17 04:00 02/03/17 03:45 95 02/03/17 01:15 95 02/03/17 00:15 93 L 02/03/17 00:00 02/02/17 23:15 95 02/02/17 22:45 94 L 02/02/17 22:15 95 02/02/17 22:00 93 L 02/02/17 21:45 93 L 02/02/17 21:30 95 02/02/17 21:03 97 02/02/17 20:51 97 02/02/17 20:37 97 02/02/17 20:33 97 02/02/17 20:17 97 02/02/17 20:02 97 02/02/17 19:41 96 02/02/17 19:33 96 02/02/17 19:17 93 L 02/02/17 18:59 94 L Intake and Output 02/03/17 02/03/17 02/03/17 06:59 14:59 22:59 Intake Total 550 1040 200 Output Total 1490 1160 845 Balance -940 -120 -645 Intake: IV 800 200 Dextrose 5%-0.45% NaCl 1, 400 000 ml @ 50 mls/hr IV . Q20H ABHIJIT Rx#:[id number] Magnesium Sulfate-D5w Pmx 300 1 gm In Dextrose/Water 1 100ml.bag @ 100 mls/hr IVPB Q1H ABHIJIT Rx#: [id number] ceFAZolin 2 gm In Sodium 100 200 Chloride 0.9% 100 ml @ 100 mls/hr IVPB Q8HR ABHIJIT Rx#:[id number] Intake, IV Titration 550 Amount Dextrose 5%-0.45% NaCl 1, 450 000 ml @ 50 mls/hr IV . Q20H ABHIJIT Rx#:[id number] ceFAZolin 2 gm In Sodium 100 Chloride 0.9% 100 ml @ 100 mls/hr IVPB Q8HR [facility] Rx#:[id number] Oral 240 Output: Drainage 90 60 45 Lower Chest 90 60 45 Urine 1400 1100 800 Other: Voiding Method Indwelling Catheter Urinal Urinal Weight 124.4 kg PHYSICAL EXAMINATION: GENERAL: The patient is alert and oriented x3, not in any acute distress. Well developed, well nourished. HEENT: Pupils are round and equally reacting to light. EOMI. No scleral icterus. No conjunctival pallor. Normocephalic, atraumatic. No pharyngeal erythema. No thyromegaly. CARDIOVASCULAR: S1 and S2 present. No murmurs, rubs, or gallops. Gamino postsurgically packed deferred to primary service PULMONARY: Chest is clear to auscultation, no wheezing or crackles. ABDOMEN: Soft, nontender, nondistended, normoactive bowel sounds. No palpable organomegaly. MUSCULOSKELETAL: No joint swelling or deformity. EXTREMITIES: No cyanosis, clubbing, or pedal edema. NEUROLOGICAL: Gross neurological examination did not reveal any focal deficits. SKIN: No rashes. Results CBC & Chem 7: 02/03/17 05:23 02/03/17 05:23 Labs: Abnormal Lab Results - Last 24 Hours (Table) 02/03/17 02/03/17 Range/Units 05:23 05:23 WBC 13.0 H (3.8-10.6) k/uL Hgb 12.4 L (13.0-17.5) gm/dL Hct 38.4 L (39.0-53.0) % RDW 17.9 H (11.5-15.5) % Neutrophils # 11.2 H (1.3-7.7) k/uL Glucose 158 H (74-99) mg/dL Magnesium 1.5 L (1.6-2.3) mg/dL Total Protein 6.0 L (6.3-8.2) g/dL Assessment and Plan Plan: Acidosis: Without any signs or symptoms of infection no further intervention is necessary at this point of time patient is medically stable to be discharged. #2 hyperlipidemia #3 chest wall dehiscence status post surgical intervention pain management as per primary service #4 recent aortic valve replacement. #5 gastric specialist infectious disease #6 marijuana use and tobacco use counseling was provided Patient is medically stable to be discharged. And patient will need to follow with Dr. Katz within a week.
--- NOTE | 2017-02-03 18:16 | OP ---
DATE OF THE OPERATION: 02/02/2017 ATTENDING SURGEON: Dr. Jay Nichole ASSIST: Qasim Laguna and Rafal Posey. PREOPERATIVE DIAGNOSIS: Lower sternal wound dehiscence. POSTOPERATIVE DIAGNOSIS: Lower sternal wound dehiscence. PROCEDURE: Revision of sternal wound, sternal plating times four. ANESTHESIA: General. BLOOD LOSS: About 100 mL SUMMARY: The patient was brought to the operating room and placed in the supine position. Upon ( ) general endotracheal anesthetic, placement of adequate IV access Amaya catheter, the chest was prepped and draped in normal sterile fashion using ( ) and sterile towels. The previous chest incision scar was removed and dissection was carried down to the sternum. The top two- thirds of the sternum was intact nicely. There was no palpable movement. However, the lower sternal wire and zip tie had cut through the right side of the sternal bone and there was movement there. At this point the edges were freed up. The pectoralis muscle was taken off the lower part of the sternum on both sides and three sets of sternal plates from [employer] were used to bolster the sternal edges on both sides. Two V plates, one latter plate and one X plate were used with the appropriately mostly #14 screws. Upon applying the four plates with screws the lower sternum was very stable and with an excellent result, irrigation was performed. A #19 round KALYN drain was placed on top of the repair and brought through a separate stab incision, the incision closed in three layers. No complications. The patient tolerated the procedure well, was extubated and taken to the recovery room in stable condition. MICHEL
[2017-02-03] MEDS ORDERED: MAGNESIUM HYDROXIDE 2,400 MG/10 ML CUP PO PRN (19:22)
[2017-02-03] MEDS ORDERED: SENNOSIDES-DOCUSATE SODIUM 1 EACH TAB PO SCH (21:00)
== END 2017-02-03 17:06 | disposition home or self-care (01) | DRG 909 ==
LOC: 6SEL 18:59
PROVIDERS: ADMIT Thoracic Surgery (Cardiothoracic Vascular Surgery); ATTEND Thoracic Surgery (Cardiothoracic Vascular Surgery)
PROC: 0PH004Z Insertion of Internal Fixation Device into Sternum, Open Approach (ICD-10-PCS; principal; 2017-02-02 13:15)
DX: T81.32XA Disruption of internal operation (surgical) wound, not elsewhere classified, initial encounter (principal); I10 Essential (primary) hypertension; E78.5 Hyperlipidemia, unspecified; K21.9 Gastro-esophageal reflux disease without esophagitis; G43.909 Migraine, unspecified, not intractable, without status migrainosus; F31.9 Bipolar disorder, unspecified; F17.200 Nicotine dependence, unspecified, uncomplicated; Z79.02 Long term (current) use of antithrombotics/antiplatelets; Z79.82 Long term (current) use of aspirin; Z79.899 Other long term (current) drug therapy; Z91.19 Patient's noncompliance with other medical treatment and regimen; Z95.2 Presence of prosthetic heart valve
CPT/HCPCS: 71010; 80053; 83735; 84132; 85025; 86850; 86900; 86901

== ENCOUNTER → 2017-08-28 | Outpatient (CLI) | payer BC ==
--- NOTE | 2017-08-28 09:53 | CT ---
EXAMINATION TYPE: CT chest wo con DATE OF EXAM: 08/28/2017 COMPARISON: Prior CT chest 11/28/2016 HISTORY: sternal pain, sternal dehiscence CT DLP: 819 mGycm. Automated Exposure Control for Dose Reduction was Utilized. TECHNIQUE: CT scan of the thorax is performed without IV contrast. FINDINGS: Lack of contrast could compromise sensitivity. Patient is post median sternotomy. Postop ch anges are noted along the sternum. Irregularity of the sternum distally is noted, there is sclerosis along the sternum as well as dehiscence and inflammatory change, findings suggesting nonunion. Fragme nts of the sternum are present with intervening soft tissue, screw from fixation plate on the left is within soft tissue rather than bone, there is some lucency along the sternal screws. Suspect cardiac valve replacement. LUNGS: The lungs are grossly clear, there is no concerning parenchymal mass or nodule identified, min imal nodularity in the left lung is unchanged. There is no pleural effusion or pneumothorax seen. The tracheobronchial tree is patent. MEDIASTINUM: Lack of IV contrast is noted to limit evaluation for mediastinal and especially hilar ad enopathy. Calcified prevascular foci are stable. There are no definitive greater than 1 cm hilar or m ediastinal lymph nodes. No cardiomegaly or pericardial effusion is seen. OTHER: Liver shows low attenuation suggesting hepatic steatosis. IMPRESSION: Correlate for possible chronic osteomyelitis, there is nonunion suggested within the ster num as described postop changes as above. Findings suggest hepatic steatosis. Additional findings abo ve.
== END | disposition home or self-care (01) ==
LOC: RADCTMAIN 08:44
PROVIDERS: ATTEND Thoracic Surgery (Cardiothoracic Vascular Surgery)
DX: T81.31XS Disruption of external operation (surgical) wound, not elsewhere classified, sequela (principal)
CPT/HCPCS: 71250

== ENCOUNTER → 2018-05-24 | Outpatient (CLI) | payer BC ==
--- NOTE | 2018-05-24 09:27 | CT ---
EXAMINATION TYPE: CT chest w con DATE OF EXAM: 05/24/2018 COMPARISON: Chest CT August 28, 2017. 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 Automated Exposure Control for Dose Reduction was Utilized. TECHNIQUE: CT scan of the thorax is performed following with IV Contrast, patient injected with 100 mL of Isovue 300. FINDINGS: LUNGS: There is 6 x 5 mm nodule or nodular density anteriorly left midlung axial image 25 redemonstra dilcia. There is stable 7 x 4 mm elongated nodule superior left lower lobe abutting major fissure axial image 28. Neither lesion significantly changed from November 28, 2016 study. Lungs remain clear without pl eural effusion or pneumothorax seen bilaterally. Tracheobronchial tree is patent. MEDIASTINUM: There are no greater than 1 cm hilar or mediastinal lymph nodes. No cardiomegaly or pe ricardial effusion is seen. Metallic aortic valve is redemonstrated. There are subcentimeter calcifi cations in the mediastinum. Sternotomy wires are redemonstrated superiorly. Inferiorly there is large r metallic fixating hardware with stable diastases of the inferior sternum measuring roughly 1.8 cm c oronal image 16 unchanged from prior study coronal image 12. Overlying horizontal fixation plate is n oted with additional fixating hardware. No suspicious fluid or fat stranding in the underlying medias tinal fat is present. Overlying scar tissue is less prominent. OTHER: Small degree of bilateral gynecomastia is appreciated. Mild multilevel spurring in the thoraci c spine is seen. Liver remains heterogeneously hypodense. 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 Stable nodularity left lung. No new suspicious acute pulmonary process.
== END | disposition home or self-care (01) ==
LOC: RADCTMAIN 07:36
PROVIDERS: ATTEND Thoracic Surgery (Cardiothoracic Vascular Surgery)
DX: T81.31XA Disruption of external operation (surgical) wound, not elsewhere classified, initial encounter (principal); Z98.890 Other specified postprocedural states; Z88.5 Allergy status to narcotic agent
CPT/HCPCS: 71260; Q9967

== ENCOUNTER 2018-07-25 06:02 | Inpatient (IN) | payer BC ==
[2018-07-25] MEDS ORDERED: HYDROmorphone 1 MG/ML 1 ML SYRINGE IVP STA ×2 (06:27→09:07)
--- NOTE | 2018-07-25 06:32 | ED ---
Chest Pain HPI - General Source: patient, family Mode of arrival: ambulatory Limitations: no limitations - History of Present Illness MD Complaint: chest pain Onset/Timin -: week(s) Onset: during rest Pain Location: right chest Pain Radiation: back Severity: severe Quality: sharp Consistency: constant Improves With: nothing Worsens With: inspiration, movement Other Symptoms: cough Treatments Prior to Arrival: other (Percocet) <Sylvester Pickens - Last Filed: 07/25/18 07:18> <Danilo Acevedo - Last Filed: 07/25/18 09:10> - General Chief Complaint: Chest Pain Stated Complaint: chest pain Time Seen by Provider: 07/25/18 06:13 - History of Present Illness Initial Comments: This patient is a 47-year-old man with history of previous sternal plasty, who presents to be evaluated for right upper chest pain. The patient states that this had started approximately 2 weeks ago after he had had a little bit of a fall and caught himself using his right arm. The patient noted pains in this location but they were not severe. Over the past 24-48 hours he states the pain has increased, becoming severe and it has started to cause limitation of his breathing and also of his ability to sleep. When the pain was not relieved by this morning his persuaded him to be seen here. The patient had had a sternal plasty in which they brought his pectoral muscle up over the sternum approximately one month ago. This was as a result of obstruction of his sternum following chest surgery. The patient states that his pain is now severe area is constant. It is worse with taking a deep breath or with movements. He has been taking Percocet but this does not really provide much relief area over the past day to 2 he has noted that he has had a little bit of a cough. (Sylvester Pickens) - Related Data Home Medications Medication Instructions Recorded Confirmed Metoprolol Tartrate [Lopressor] 25 mg PO QAM 01/24/17 07/25/18 FLUoxetine HCL [PROzac] 40 mg PO DAILY 07/25/18 07/25/18 Lisinopril [Zestril] 20 mg PO DAILY 07/25/18 07/25/18 oxyCODONE HCL/ACETAMINOPHEN 1 tab PO Q6HR PRN 07/25/18 07/25/18 [Percocet 5-325 mg] Previous Rx's Medication Instructions Recorded Atorvastatin [Lipitor] 40 mg PO DAILY #30 tab 10/09/16 Allergies Allergy/AdvReac Type Severity Reaction Status Date / Time morphine AdvReac aggitation Verified 07/25/18 08:03 Review of Systems ROS Other: All systems not noted in ROS Statement are negative. Constitutional: Denies: fever, chills Respiratory: Reports: cough. Denies: dyspnea, hemoptysis Cardiovascular: Reports: as per HPI, chest pain. Denies: palpitations, orthopnea, edema, syncope Gastrointestinal: Denies: abdominal pain, nausea, vomiting Genitourinary: Denies: dysuria, hematuria Musculoskeletal: Denies: back pain, arthralgia Skin: Denies: rash Neurological: Denies: headache, weakness <Sylvester Pickens - Last Filed: 07/25/18 07:18> ROS Other: All systems not noted in ROS Statement are negative. <Danilo Acevedo - Last Filed: 07/25/18 09:10> ROS Statement: Those systems with pertinent positive or pertinent negative responses have been documented in the HPI. EKG Findings - EKG Results: EKG: interpreted by HALLEY SANTILLAN, sinus rhythm, normal axis, normal QRS, normal ST/ T EKG shows: bradycardia (Rate approximate 58 bpm) <Sylvester Pickens - Last Filed: 07/25/18 07:18> Past Medical History Past Medical History: GERD/Reflux, Hyperlipidemia, Musculoskeletal Disorder, Skin Disorder Additional Past Medical History / Comment(s): states "sternum not healing after heart valve surgery," Hx migraines, degenerative discs in neck, bone spurs, eczema, leaking heart valve History of Any Multi-Drug Resistant Organisms: None Reported Past Surgical History: Adenoidectomy, Hernia Repair, Tonsillectomy Additional Past Surgical History / Comment(s): Aortic valve replace 10-13-16,KHANG , Neck disc c4/c5 Past Anesthesia/Blood Transfusion Reactions: No Reported Reaction Additional Past Anesthesia/Blood Transfusion Reaction / Comment(s): vertigo with motion,no hx blood transfusion. Past Psychological History: Anxiety, Bipolar, Depression Smoking Status: Current every day smoker Past Alcohol Use History: Rare Past Drug Use History: Marijuana - Past Family History Mother Family Medical History: No Reported History <Sylvester Pickens - Last Filed: 07/25/18 07:18> General Exam Limitations: no limitations General appearance: alert, in no apparent distress Head exam: Present: atraumatic Eye exam: Present: normal appearance ENT exam: Present: normal oropharynx Neck exam: Present: normal inspection, full ROM Respiratory exam: Present: chest wall tenderness (Right anterior chest wall). Absent: respiratory distress, wheezes, rales, rhonchi, stridor, accessory muscle use, decreased breath sounds, prolonged expiratory Cardiovascular Exam: Present: regular rate, normal rhythm, normal heart sounds. Absent: systolic murmur, diastolic murmur, rubs, gallop GI/Abdominal exam: Present: soft. Absent: distended, tenderness, guarding, rebound, mass Extremities exam: Present: normal inspection, normal capillary refill. Absent: pedal edema, calf tenderness Back exam: Present: normal inspection. Absent: CVA tenderness (R), CVA tenderness (L) Neurological exam: Present: alert Skin exam: Present: warm, dry, intact, normal color. Absent: rash <Sylvester Pickens - Last Filed: 07/25/18 07:18> Course <Sylvester Pickens - Last Filed: 07/25/18 07:18> <Danilo Acevedo - Last Filed: 07/25/18 09:10> Vital Signs 07/25/18 07/25/18 07/25/18 06:04 06:16 08:08 Temperature 98.3 F 97.9 F Pulse Rate 70 60 Respiratory 20 16 20 Rate Blood Pressure 183/97 114/81 O2 Sat by Pulse 100 97 Oximetry - Reevaluation(s) Reevaluation #1: 07/25/18 08:55 Two-view chest x-ray shows atelectasis. Postsurgical changes. Computed tomography scan of the chest has artifact. No large central or lobar pulmonary embolism. Median sternotomy. There is new large erosion/defect right inferior sternal body with cyclic thickening. There is Holguin no soft tissue swelling. Consider phlegmon versus hematoma. Case was discussed with practitioner Qasim Laguna, who does recommend medical admission and cardiothoracic surgery will consult. He does agree with IV antibiotics. 07/25/18 08:[address] Katz paged. 07/25/18 09:08 Case was discussed with Dr. Katz, who will admit his patient. Patient does not meet sepsis criteria. (Danilo Acevedo) Disposition <Sylvester Pickens - Last Filed: 07/25/18 07:18> Is patient prescribed a controlled substance at d/c from ED?: No Decision Time: 09:10 <Danilo Acevedo - Last Filed: 07/25/18 09:10> Clinical Impression: Postoperative infection of wound of sternum Disposition: ADMITTED IP TO THIS HOSP Referrals: Matthew Katz MD [Primary Care Provider] - 1-2 days
[2018-07-25 06:43] LABS: Basophils # (A) 0.1 k/uL (0-0.2); Basophils % (A) 1 %; Eosinophils # (A) 0.9 k/uL (0-0.7); Eosinophils % (A) 8 %; HCT 41.1 % (39.0-53.0); HGB 13.4 gm/dL (13.0-17.5); Lymphocytes % (A) 28 %; MCH 28.9 pg (25.0-35.0); MCHC 32.7 g/dL (31.0-37.0); MCV 88.5 fL (80.0-100.0); Mean Platelet Volume 7.1; Monocytes # (A) 0.6 k/uL (0-1.0); Monocytes % (A) 6 %; Neutrophils # (A) 6.1 k/uL (1.3-7.7); Neutrophils % (A) 56 %; Platelet Count 285 k/uL (150-450); RBC 4.64 m/uL (4.30-5.90); WBC 10.8 k/uL (3.8-10.6)
[2018-07-25 06:54] LABS: ALT 31 U/L (21-72); AST 22 U/L (17-59); Albumin 4.2 g/dL (3.5-5.0); Alkaline Phosphatase 94 U/L (38-126); Anion Gap 8 mmol/L; Blood Urea Nitrogen 20 mg/dL (9-20); Calcium 9.7 mg/dL (8.4-10.2); Carbon Dioxide 21 mmol/L (22-30); Chloride 111 mmol/L (98-107); Glucose 113 mg/dL (74-99); Magnesium 1.9 mg/dL (1.6-2.3); Potassium 4.7 mmol/L (3.5-5.1); Sodium 140 mmol/L (137-145); Total Bilirubin 0.3 mg/dL (0.2-1.3); Total Protein 7.1 g/dL (6.3-8.2)
[2018-07-25 06:56] LABS: INR 0.9 (<1.2); Partial Thromboplastin Time 25.1 sec (22.0-30.0); Prothrombin Time 9.9 sec (9.0-12.0)
--- NOTE | 2018-07-25 07:00 | XR ---
EXAM: XR Chest, 2 Views CLINICAL HISTORY: Chest Pain TECHNIQUE: Frontal and lateral views of the chest. COMPARISON: No relevant prior studies available. FINDINGS: Artifacts: Overlying EKG artifact. Lungs: Oblique linear changes at the right lung base adjacent to the diaphragm are presumed atelectasis or scarring. Pleural space: No large pleural effusion. No pneumothorax. Heart: Aortic valve replacement. Mediastinum: Unremarkable. Bones/joints: Unremarkable. Upper abdomen: Elevation of the right hemidiaphragm. IMPRESSION: Mild elevation the right hemidiaphragm with probable subsegmental atelectasis or scarring. No lobar consolidation. No large pleural effusion or pneumothorax. Postsurgical changes consistent with aortic valve replacement.
[2018-07-25 07:04] LABS: Creatine Kinase 99 U/L (55-170)
[2018-07-25 07:07] LABS: D-Dimer 2.03 mg/L FEU (<0.60)
[2018-07-25 07:17] LABS: Troponin I <0.012 ng/mL (0.000-0.034)
--- NOTE | 2018-07-25 08:31 | CT ---
EXAMINATION TYPE: CT chest angio for PE DATE OF EXAM: 07/25/2018 COMPARISON: 05/24/2018 HISTORY: 47-year-old male Chest pain TECHNIQUE: Contiguous axial scanning of the chest performed with IV Contrast, patient injected with 8 9 mL of Isovue 370. Coronal/sagittal MIP reconstructions performed. CT DLP: 649.8 mGycm Automated exposure control for dose reduction was used. FINDINGS: Heart upper limits of normal in size with median sternotomy wires and prosthetic aortic valve. Additi onal post-CABG changes are suggested. Aorta normal caliber with conventional branching anatomy. No thoracic lymphadenopathy by CT size criteria. Satisfactory opacification of the pulmonary arterial system with respiratory motion artifacts. No lar ge central lobar pulmonary embolus. Many of the segmental and more distal arterial branches are essen tially nondiagnostic due to the degree of motion artifacts. Evaluation of the lungs is mild centrilobular emphysema, bandlike atelectasis right lower lobe, and a trace right pleural effusion. Some groundglass posterior right base also probably relates to atelect asis. Early developing infiltrate difficult to exclude entirely. Visualized upper abdomen shows no gross abnormality. Bones: Again, median sternotomy changes are present. The sternotomy remains chronically nonunited at the level of the sternal manubrium. There is extensive new presternal thickened soft tissue measuring up to 2.2 cm thick and up to 7.3 cm wide. This extends through the inferior right aspect of the ster nal body and xiphoid with erosion of both this portion of the sternum and the adjacent costosternal j oints. This abnormal inflammatory appearing soft tissue extends to abut the underlying pericardium me asuring up to 5.0 cm AP and up to 6.2 cm wide, refer to axial image 86. We note that on the 8 exam, sternal plate and screw fixation is present at this level but this is now absent and further clinical correlation will be needed. IMPRESSION: 1. BREATHING ARTIFACTS. NO EVIDENCE FOR LARGE CENTRAL OR LOBAR PULMONARY BOLUS. MANY OF THE SEGMENTAL AND MORE DISTAL ARTERIAL BRANCHES ARE NONDIAGNOSTIC AND PULMONARY EMBOLI IN THESE LOCATIONS CANNOT B E RELIABLY EXCLUDED BASED ON THIS EXAM. 2. MEDIAN STERNOTOMY. THERE IS NEW LARGE EROSION/DEFECT OF THE RIGHT INFERIOR STERNAL BODY AND XIPHOI D WITH THICKENED presternal soft tissue extending from the superior aspect of the sternotomy down to the xiphoid and extending through the defect in the right inferior sternum to abut the underlying per icardium. This measures up to 6.2 cm wide and 5.0 cm AP. More superiorly, presternal soft tissue thic kening measures up to 7.3 cm wide and 2.2 cm thick. Hematoma or inflammatory phlegmon are considerati ons. Further clinical correlation will be needed as prior sternal fixation plates seen on 05/24/2018 are now absent. 3. Areas of atelectasis especially in the right lower lobe. Some focal groundglass posterior right ba se also likely relates to atelectasis. Developing pneumonitis difficult to exclude. Trace right effus ion.
[2018-07-25] MEDS ORDERED: PIPERACILLIN-TAZOBACTAM 3.375 GM in SODIUM CHLORIDE 0.9% 100 ML IVPB STA (09:11)
[2018-07-25] MEDS ORDERED: NALOXONE 0.4 MG/ML 1 ML VIAL IV PRN (09:12)
[2018-07-25] MEDS: SODIUM CHLORIDE 0.9% 1,000 ML IV SCH ×2 (09:37→22:50)
[2018-07-25 10:15] VITALS: BMI 34.8
[2018-07-25] MEDS: HYDROmorphone 1 MG/ML 1 ML SYRINGE IVP PRN ×4 (12:47→22:47)
[2018-07-25] MEDS: PIPERACILLIN-TAZOBACTAM 3.375 GM in SODIUM CHLORIDE 0.9% 100 ML IVPB SCH (18:22)
[2018-07-25] MEDS ORDERED: ZOLPIDEM 5 MG TAB PO SCH (21:00)
[2018-07-26] MEDS: HYDROmorphone 1 MG/ML 1 ML SYRINGE IVP PRN ×4 (02:37→14:48)
[2018-07-26] MEDS: PIPERACILLIN-TAZOBACTAM 3.375 GM in SODIUM CHLORIDE 0.9% 100 ML IVPB SCH ×2 (02:38→11:27)
--- NOTE | 2018-07-26 08:04 | P.HPIM ---
History of Present Illness H&P Date: 07/25/18 Chief Complaint: Chest wall pain This is a history and physical on a 47-year-old white male with history of valvular repair with capitated postoperative course requiring revision of sternotomy. The history from him is that he fell and was having episodes of chest pressure. He was worried about some type of pneumothorax and other complication. No diaphoresis no significant nausea vomiting or diarrhea stated. Computed tomography scan did show possible information of the sternal area and because of this, he is appropriately admitted for pain control and evaluation by the thoracic team. Review of Systems Constitutional: Denies chills, Denies fever Eyes: denies blurred vision, denies pain Ears, nose, mouth and throat: Denies headache, Denies sore throat Cardiovascular: Reports chest pain, Denies dyspnea on exertion, Denies edema, Denies palpitations, Denies shortness of breath Respiratory: Denies cough Gastrointestinal: Denies abdominal pain, Denies diarrhea, Denies nausea, Denies vomiting Musculoskeletal: Denies myalgias Integumentary: Denies pruritus, Denies rash Psychiatric: Denies anxiety, Denies depression Past Medical History Past Medical History: GERD/Reflux, Hyperlipidemia, Hypertension, Musculoskeletal Disorder, Skin Disorder Additional Past Medical History / Comment(s): Aortic valve surgery 10/13/16 with post op wound problems and subsequent surgeries-see surgical history, DDD in neck and low back, chronic cervical and low back pain, vertigo, head injury as a child, eczema. History of Any Multi-Drug Resistant Organisms: None Reported Past Surgical History: Adenoidectomy, Hernia Repair, Tonsillectomy Additional Past Surgical History / Comment(s): KHANG, aortic valve replaced , revision sternal wound-wires removed and plate system placed which have all since been removed, 06/19/18 sternalplasty with pectoral muscle, cervical surgery, umbilical hernia repair, EGD, colonoscopy, benign tymor removed below R breast. Past Anesthesia/Blood Transfusion Reactions: No Reported Reaction, Motion Sickness Additional Past Anesthesia/Blood Transfusion Reaction / Comment(s): vertigo with motion,no hx blood transfusion. Past Psychological History: No Psychological Hx Reported Smoking Status: Current every day smoker Past Alcohol Use History: None Reported Past Drug Use History: Marijuana - Past Family History Mother Family Medical History: No Reported History Additional Family Medical History / Comment(s): Mother had bariatric surgery then intestinal problems after. She has vertigo. Father Additional Family Medical History / Comment(s): Pt did not know his father but knows he in a MVA. Medications and Allergies Home Medications Medication Instructions Recorded Confirmed Type Atorvastatin [Lipitor] 40 mg PO DAILY #30 tab 10/09/16 07/25/18 Rx Metoprolol Tartrate [Lopressor] 25 mg PO QAM 01/24/17 07/25/18 History Clopidogrel [Plavix] 75 mg PO DAILY 07/25/18 07/25/18 History FLUoxetine HCL [PROzac] 40 mg PO DAILY 07/25/18 07/25/18 History Lisinopril [Zestril] 20 mg PO DAILY 07/25/18 07/25/18 History oxyCODONE HCL/ACETAMINOPHEN 1 tab PO Q6HR PRN 07/25/18 07/25/18 History [Percocet 5-325 mg] Allergies Allergy/AdvReac Type Severity Reaction Status Date / Time morphine AdvReac aggitation Verified 07/25/18 08:03 Physical Exam Vitals: Vital Signs Temp Pulse Pulse Resp BP BP BP 07/26/18 07:19 97.5 F L 63 17 170/96 07/25/18 20:52 97.8 F 62 18 137/87 07/25/18 15:17 97.8 F 66 17 124/79 07/25/18 14:00 58 L 14 114/72 07/25/18 13:00 49 L 16 121/75 07/25/18 12:00 51 L 17 115/83 07/25/18 11:00 48 L 17 109/71 07/25/18 10:47 97.7 F 65 18 109/71 07/25/18 09:55 98.1 F 80 18 124/72 07/25/18 08:08 97.9 F 60 20 114/81 Pulse Ox 07/26/18 07:19 98 07/25/18 20:52 96 07/25/18 15:17 96 07/25/18 14:00 97 07/25/18 13:00 93 L 07/25/18 12:00 97 07/25/18 11:00 96 07/25/18 10:47 97 07/25/18 09:55 100 07/25/18 08:08 97 Intake and Output 07/25/18 07/26/18 07/26/18 22:59 06:59 14:59 Intake Total 1400 1780 Balance 1400 1780 Intake: Intake, IV Titration 400 700 Amount Piperacillin-Tazobactam 3 100 100 .375 gm In Sodium Chloride 0.9% 100 ml @ 25 mls/hr IVPB Q8H ABHIJIT Rx#: [id number] Sodium Chloride 0.9% 1, 300 600 000 ml @ 75 mls/hr IV . [id number] ABHIJIT Rx#:[id number] Oral 1000 1080 Other: Voiding Method Toilet Urinal # Voids 4 2 - Constitutional General appearance: no acute distress - EENT Eyes: EOMI - Neck Neck: no lymphadenopathy - Respiratory Respiratory: bilateral: CTA - Cardiovascular Rhythm: regular Heart sounds: normal: S1, S2 Abnormal Heart Sounds: no S3 Gallop - Gastrointestinal General gastrointestinal: no organomegaly, soft, no tenderness - Neurologic Neurologic: CNII-XII intact Results CBC & Chem 7: 07/25/18 06:32 07/25/18 06:32 Thrombosis Risk Factor Assmnt - Choose All That Apply Any of the Below Risk Factors Present?: Yes Each Factor Represents 1 point: Age 41-60 years, Obesity (BMI >25) Other Risk Factors: No Other congenital or acquired thrombophilia - If yes, enter type in comment: No Thrombosis Risk Factor Assessment Total Risk Factor Score: 2 Thrombosis Risk Factor Assessment Level: Low Risk Assessment and Plan (1) Pain of sternum Current Visit: Yes Status: Acute Code(s): R07.89 - OTHER CHEST PAIN SNOMED Code(s): 756694943 (2) Anxiety Current Visit: No Status: Acute Code(s): F41.9 - ANXIETY DISORDER, UNSPECIFIED SNOMED Code(s): 95872612 (3) Borderline hypertension Current Visit: No Status: Acute Code(s): R03.0 - ELEVATED BLOOD-PRESSURE READING, W/O DIAGNOSIS OF HTN SNOMED Code(s): 334703706 (4) Cannabis abuse, daily use Current Visit: No Status: Acute Code(s): F12.10 - CANNABIS ABUSE, UNCOMPLICATED SNOMED Code(s): 100008906 (5) Status post aortic valve replacement with bioprosthetic valve Current Visit: No Status: Acute Code(s): Z95.4 - PRESENCE OF OTHER HEART- VALVE REPLACEMENT SNOMED Code(s): 1189351213966 Plan: Appropriate consultation with thoracic surgical team. Reconcile medications. Appropriate pain control. Watch vitals closely. Will anticipate discharge in next 24 hours once cleared by thoracic team. Time with Patient: Greater than 30
[2018-07-26 08:20] LABS: Basophils # (A) 0.1 k/uL (0-0.2); Basophils % (A) 1 %; Eosinophils # (A) 0.8 k/uL (0-0.7); Eosinophils % (A) 7 %; HCT 39.5 % (39.0-53.0); HGB 12.9 gm/dL (13.0-17.5); Lymphocytes # (A) 2.2 k/uL (1.0-4.8); Lymphocytes % (A) 20 %; MCH 28.8 pg (25.0-35.0); MCHC 32.7 g/dL (31.0-37.0); MCV 88.2 fL (80.0-100.0); Monocytes # (A) 0.6 k/uL (0-1.0); Monocytes % (A) 6 %; Neutrophils # (A) 7.5 k/uL (1.3-7.7); Neutrophils % (A) 66 %; Platelet Count 251 k/uL (150-450); RBC 4.48 m/uL (4.30-5.90); RDW 13.8 % (11.5-15.5); WBC 11.3 k/uL (3.8-10.6)
[2018-07-26 08:39] LABS: Anion Gap 5 mmol/L; Blood Urea Nitrogen 13 mg/dL (9-20); Calcium 9.4 mg/dL (8.4-10.2); Carbon Dioxide 26 mmol/L (22-30); Chloride 107 mmol/L (98-107); Glucose 108 mg/dL (74-99); Potassium 4.6 mmol/L (3.5-5.1); Sodium 138 mmol/L (137-145)
[2018-07-26] MEDS ORDERED: LISINOPRIL 20 MG TAB PO SCH (09:00)
[2018-07-26] MEDS ORDERED: CLOPIDOGREL 75 MG TAB PO SCH (09:00)
[2018-07-26] MEDS ORDERED: METOPROLOL TARTRATE 25 MG TAB PO SCH (09:00)
[2018-07-26] MEDS ORDERED: ATORVASTATIN 40 MG TAB PO SCH (09:00)
[2018-07-26] MEDS ORDERED: FLUoxetine HCL 20 MG CAP PO SCH (09:00)
--- NOTE | 2018-07-26 11:08 | P.GSCN ---
<Reagan Laguna - Last Filed: 07/26/18 11:06> History of Present Illness Reason for Consult: Right sided chest pain post sternal revision surgery. Requesting physician: Danilo Acevedo History of present illness: This is a 47-year-old gentleman who is followed by Dr. Matthew Katz on an outpatient basis. 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 The patient reports on 06/19/2018 he underwent a sternal plasty surgery with muscle flap completed at [facility]. The surgical report from [facility] is not available at this time. The patient states that about 2 weeks post his sternal revision surgery while in his kitchen he slipped on some water and caught himself with his right arm without falling. Since slipping in his kitchen he has had complaints of right lower sternal wound pain which has progressively been getting worse. He is followed up with cardiothoracic surgery and his plastic surgeon since his slip. The patient reports that his pain is causing him some episodes of shortness of breath and pain to his right lower chest is worse when lifting items with his right arm which she describes as a shock type discomfort. He denies any numbness, weakness, nausea, vomiting, fever, chills or palpitations. The patient reports that he has been taking Percocet at home with no relief. The patient also reports that he has been having a nagging nonproductive cough. On presentation to the emergency department a chest x-ray was completed which showed mild elevation to his right hemidiaphragm with atelectasis or scarring, no large pleural effusion or pneumothorax demonstrated. A 12-lead EKG was completed which showed sinus bradycardia heart rate 58 BPM. He was afebrile on admission and his laboratory results show a WBC count 10.8, hemoglobin 13.4, BUN 20, creatinine 0.80. For further evaluation the patient underwent a CT chest angiogram. Due to his recent sternal plasty surgery and since he is well known to the cardiothoracic surgery service a consult was placed for further evaluation and treatment recommendations. Review of Systems A 14 point review of systems was completed and was negative except as mentioned in the HPI. Past Medical History Past Medical History: GERD/Reflux, Hyperlipidemia, Hypertension, Musculoskeletal Disorder, Skin Disorder Additional Past Medical History / Comment(s): Aortic valve surgery 10/13/16 with post op wound problems and subsequent surgeries-see surgical history, DDD in neck and low back, chronic cervical and low back pain, vertigo, head injury as a child, eczema. History of Any Multi-Drug Resistant Organisms: None Reported Past Surgical History: Adenoidectomy, Hernia Repair, Tonsillectomy Additional Past Surgical History / Comment(s): KHANG, aortic valve replaced , revision sternal wound-wires removed and plate system placed which have all since been removed, 06/19/18 sternalplasty with pectoral muscle, cervical surgery, umbilical hernia repair, EGD, colonoscopy, benign tymor removed below R breast. Past Anesthesia/Blood Transfusion Reactions: No Reported Reaction, Motion Sickness Additional Past Anesthesia/Blood Transfusion Reaction / Comm: vertigo with motion,no hx blood transfusion. Past Psychological History: No Psychological Hx Reported Smoking Status: Current every day smoker Past Alcohol Use History: None Reported Past Drug Use History: Marijuana - Past Family History Mother Family Medical History: No Reported History Additional Family Medical History / Comment(s): Mother had bariatric surgery then intestinal problems after. She has vertigo. Father Additional Family Medical History / Comment(s): Pt did not know his father but knows he in a MVA. Medications and Allergies Home Medications Medication Instructions Recorded Confirmed Type Atorvastatin [Lipitor] 40 mg PO DAILY #30 tab 10/09/16 07/25/18 Rx Metoprolol Tartrate [Lopressor] 25 mg PO QAM 01/24/17 07/25/18 History Clopidogrel [Plavix] 75 mg PO DAILY 07/25/18 07/25/18 History FLUoxetine HCL [PROzac] 40 mg PO DAILY 07/25/18 07/25/18 History Lisinopril [Zestril] 20 mg PO DAILY 07/25/18 07/25/18 History oxyCODONE HCL/ACETAMINOPHEN 1 tab PO Q6HR PRN 07/25/18 07/25/18 History [Percocet 5-325 mg] Allergies Allergy/AdvReac Type Severity Reaction Status Date / Time morphine AdvReac aggitation Verified 07/25/18 08:03 Surgical - Exam Vital Signs Temp Pulse Resp BP Pulse Ox 98.3 F 70 20 183/97 100 07/25/18 06:04 07/25/18 06:04 07/25/18 06:04 07/25/18 06:04 07/25/18 06:04 - General well developed, well nourished, no distress, moderate pain (To his right lower sternal border), obese - Eyes PERRL, normal ocular movement - ENT normal pinna, normal nares, normal mucosa, no hearing loss, no congestion - Neck Neck is supple, no lymphadenopathy. 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 Respirations are symmetrical and nonlabored. Oxygen saturation is 97% on room air. - Cardiovascular Regular rhythm and rate. S1 and S2 present, negative for S3, gallop or murmur. No edema present. - Abdomen Abdomen is soft, nontender and nondistended. Active bowel sounds all 4 abdominal quadrants. No guarding or rigidity. No organomegaly. - Genitourinary Deferred - Rectum Deferred - Integumentary Midline sternal incision is clean, dry and approximated. No drainage or redness present. No ecchymosis present. no rash, no growths, no abnormal pigmentation - Neurologic normal coordination, normal sensation - Musculoskeletal normal gait, normal posture - Psychiatric oriented to time, oriented to person, oriented to place, speech is normal, memory intact Results - Labs 07/26/18 07:44 07/26/18 07:44 Abnormal Lab Results - Last 24 Hours (Table) 07/25/18 07/25/18 07/25/18 Range/Units 06:32 06:32 06:32 WBC 10.8 H (3.8-10.6) k/uL Eosinophils # 0.9 H (0-0.7) k/uL D-Dimer 2.03 H (<0.60) mg/L FEU Chloride 111 H (98-107) mmol/L Carbon Dioxide 21 L (22-30) mmol/L Glucose 113 H (74-99) mg/dL Diabetes panel 07/25/18 Range/Units 06:32 Sodium 140 (137-145) mmol/L Potassium 4.7 (3.5-5.1) mmol/L Chloride 111 H (98-107) mmol/L Carbon Dioxide 21 L (22-30) mmol/L BUN 20 (9-20) mg/dL Creatinine 0.80 (0.66-1.25) mg/dL Glucose 113 H (74-99) mg/dL Calcium 9.7 (8.4-10.2) mg/dL AST 22 (17-59) U/L ALT 31 (21-72) U/L Alkaline Phosphatase 94 (38-126) U/L Total Protein 7.1 (6.3-8.2) g/dL Albumin 4.2 (3.5-5.0) g/dL Calcium panel 07/25/18 Range/Units 06:32 Calcium 9.7 (8.4-10.2) mg/dL Albumin 4.2 (3.5-5.0) g/dL Pituitary panel 07/25/18 Range/Units 06:32 Sodium 140 (137-145) mmol/L Potassium 4.7 (3.5-5.1) mmol/L Chloride 111 H (98-107) mmol/L Carbon Dioxide 21 L (22-30) mmol/L BUN 20 (9-20) mg/dL Creatinine 0.80 (0.66-1.25) mg/dL Glucose 113 H (74-99) mg/dL Calcium 9.7 (8.4-10.2) mg/dL Adrenal panel 07/25/18 Range/Units 06:32 Sodium 140 (137-145) mmol/L Potassium 4.7 (3.5-5.1) mmol/L Chloride 111 H (98-107) mmol/L Carbon Dioxide 21 L (22-30) mmol/L BUN 20 (9-20) mg/dL Creatinine 0.80 (0.66-1.25) mg/dL Glucose 113 H (74-99) mg/dL Calcium 9.7 (8.4-10.2) mg/dL Total Bilirubin 0.3 (0.2-1.3) mg/dL AST 22 (17-59) U/L ALT 31 (21-72) U/L Alkaline Phosphatase 94 (38-126) U/L Total Protein 7.1 (6.3-8.2) g/dL Albumin 4.2 (3.5-5.0) g/dL - Imaging Chest x-ray: report reviewed, image reviewed CT scan - chest: report reviewed, image reviewed EKG: image reviewed Assessment and Plan (1) Borderline hypertension Status: Acute Code(s): R03.0 - ELEVATED BLOOD-PRESSURE READING, W/O DIAGNOSIS OF HTN SNOMED Code(s): 485993182 (2) Cannabis abuse, daily use Status: Acute Code(s): F12.10 - CANNABIS ABUSE, UNCOMPLICATED SNOMED Code(s) : 694595360 (3) Family history of early CAD Status: Acute Code(s): Z82.49 - FAMILY HX OF ISCHEM HEART DIS AND OTH DIS OF THE CIRC SYS SNOMED Code(s): 772642723 (4) Hypertriglyceridemia Status: Acute Code(s): E78.1 - PURE HYPERGLYCERIDEMIA SNOMED Code(s): 984570241 (5) Status post aortic valve replacement with bioprosthetic valve Status: Acute Code(s): Z95.4 - PRESENCE OF OTHER HEART-VALVE REPLACEMENT SNOMED Code(s): 3514562994091 (6) Pain of sternum Status: Acute Code(s): R07.89 - OTHER CHEST PAIN SNOMED Code(s): 607886113 Plan: The patient was seen and examined. His chart and diagnostics were reviewed. The patient was seen and examined by Dr. Ba from cardiothoracic surgery. The importance of smoking cessation was discussed and reviewed with the patient. Continue antibiotics for 24 hours, we will review and follow his laboratory results. Medical management per primary care service. Encourage use of his incentive spirometry every hour while awake. Further recommendations to follow based on patient's clinical course. No surgical intervention required at this time. Anticipate discharge home within the next [address] Katz for this consult, look forward to working with the care of your patient. Time with Patient: Greater than 30 <Jed Ba - Last Filed: 07/30/18 18:05> Surgical - Exam Vital Signs Temp Pulse Resp BP Pulse Ox 98.3 F 70 20 183/97 100 07/25/18 06:04 07/25/18 06:04 07/25/18 06:04 07/25/18 06:04 07/25/18 06:04 Results - Labs 07/26/18 07:44 07/26/18 07:44 Microbiology - Last 24 Hours (Table) 07/25/18 09:54 Blood Culture - Preliminary Blood No Growth after 120 hours Assessment and Plan Plan: The patient was seen and examined. I agree with the above assessment and plan. The patient is a 47-year-old male, well-known to our service, who underwent AVR nearly [address] Nichole. He has had 2 sternal wound revisions with most recent procedure taking place at [facility] in [place] with the assistance of plastic surgery. He presents to the emergency department now with chest wall pain. A computed tomography scan of the chest was personally reviewed. I do not see any evidence of infection or abnormal fluid collection. The patient was started on antibiotics by the emergency department physician. His sternal wound itself is clean, dry, and intact without evidence of drainage or obvious infection. There is no plan for surgical intervention on my part.
[2018-07-26 12:18] VITALS: PULSE 54; RESP 16; TEMP 98.4
[2018-07-26 12:19] VITALS: BP 168/95
--- NOTE | 2018-07-26 13:45 | P.DS ---
Providers Date of admission: 07/25/18 09:12 Attending physician: Matthew Katz Consults: 07/25/18 09:12 Consult Physician Urgent Consulting Provider: Jed Ba Consult Reason/Comments: cts eval Do you want consulting provider notified?: Yes Primary care physician: Matthew Katz - Discharge Diagnosis(es) (1) Pain of sternum Current Visit: Yes Status: Acute (2) Anxiety Current Visit: No Status: Acute (3) Borderline hypertension Current Visit: No Status: Acute (4) Cannabis abuse, daily use Current Visit: No Status: Acute (5) Status post aortic valve replacement with bioprosthetic valve Current Visit: No Status: Acute Hospital Course: This is a discharge from a 47-year-old white Male who has history of sternotomy secondary to valvular replacement. The patient is admitted secondary to findings on CT scan. He had significant chest pain after having a fall. The patient is now stabilized as far as his pain control and thoracic surgery has signed off on the patient. He is stable to discharge from medical perspective and will follow up with me in about 1 week. Patient Condition at Discharge: Fair Plan - Discharge Summary Discharge Rx Participant: No New Discharge Prescriptions: Continue RX: Atorvastatin [Lipitor] 40 mg PO DAILY #30 tab RX: Metoprolol Tartrate [Lopressor] 25 mg PO QAM RX: FLUoxetine HCL [PROzac] 40 mg PO DAILY RX: Lisinopril [Zestril] 20 mg PO DAILY RX: oxyCODONE HCL/ACETAMINOPHEN [Percocet 5-325 mg] 1 tab PO Q6HR PRN PRN Reason: Pain RX: Clopidogrel [Plavix] 75 mg PO DAILY Discharge Medication List RX: Atorvastatin [Lipitor] 40 mg PO DAILY #30 tab 10/09/16 [Rx] RX: Metoprolol Tartrate [Lopressor] 25 mg PO QAM 01/24/17 [History] RX: Clopidogrel [Plavix] 75 mg PO DAILY 07/25/18 [History] RX: FLUoxetine HCL [PROzac] 40 mg PO DAILY 07/25/18 [History] RX: Lisinopril [Zestril] 20 mg PO DAILY 07/25/18 [History] RX: oxyCODONE HCL/ACETAMINOPHEN [Percocet 5-325 mg] 1 tab PO Q6HR PRN 07/25/18 [ History] Follow up Appointment(s)/Referral(s): Matthew Katz MD [Primary Care Provider] - 1 Week Discharge Disposition: HOME SELF-CARE
--- NOTE | 2018-07-26 14:16 | P.PN ---
Subjective Progress Note Date: 07/26/18 Principal diagnosis: Pain of the sternum, anxiety, borderline hypertension, cannabis abuse, daily use , status post aortic valve replacement with bioprosthetic valve September 2016, history of lower sternal wire dehiscence status post revision of sternal wound and sternal plating 4 in January 2017 and recent sternal revision in May 2018. The patient is sitting up to his bedside edge. He is in no acute distress. He remains complaining of right lower sternal pain rating his pain 7 out of 10 on the pain scale. He denies any complaints of shortness of breath. Remote telemetry showing sinus bradycardia heart rate 59. He remains afebrile. Objective - Vital Signs Vital signs: Vital Signs Temp 98.4 F 07/26/18 11:53 Pulse 54 L 07/26/18 11:53 Resp 16 07/26/18 11:53 BP 168/95 07/26/18 11:56 Pulse Ox 95 07/26/18 11:53 Intake & Output 07/25/18 07/26/18 07/26/18 18:59 06:59 18:59 Intake Total 3180 Balance 3180 Intake: Intake, IV Titration 1100 Amount Piperacillin-Tazobactam 3 200 .375 gm In Sodium Chloride 0.9% 100 ml @ 25 mls/hr IVPB Q8H ABHIJIT Rx#: [id number] Sodium Chloride 0.9% 1, 900 000 ml @ 75 mls/hr IV . [id number] ABHIJIT Rx#:[id number] Oral 2080 Other: Voiding Method Toilet Urinal # Voids 2 - Constitutional General appearance: Present: cooperative, no acute distress, obese - Respiratory Details: Lung sounds essentially clear throughout, diminished to his bilateral bases. Respirations are symmetrical and nonlabored. Oxygen saturation are 96% on room air. - Cardiovascular Details: Regular rhythm and rate. S1 and S2 present, negative for S3, gallop or murmur. No edema present. Remote telemetry showing sinus bradycardia heart rate 59. - Gastrointestinal Gastrointestinal Comment(s): Abdomen is soft, nontender and nondistended. Active bowel sounds to all 4 abdominal quadrants. No guarding or rigidity. No organomegaly. - Genitourinary Genitourinary Comment(s): Voiding clear yellow urine. - Integumentary Integumentary Comment(s): Skin is warm and dry. No clubbing or cyanosis is present. No rash or abnormal pigmentation present. Midline sternal incision is healed, no redness or drainage present. - Neurologic Neurologic: Present: CNII-XII intact - Musculoskeletal Musculoskeletal: Present: gait normal, strength equal bilaterally - Psychiatric Psychiatric: Present: A&O x's 3, appropriate affect, intact judgment & insight - Labs CBC & Chem 7: 07/26/18 07:44 07/26/18 07:44 Labs: Abnormal Lab Results - Last 24 Hours (Table) 07/26/18 07/26/18 Range/Units 07:44 07:44 WBC 11.3 H (3.8-10.6) k/uL Hgb 12.9 L (13.0-17.5) gm/dL Eosinophils # 0.8 H (0-0.7) k/uL Glucose 108 H (74-99) mg/dL Microbiology - Last 24 Hours (Table) 07/25/18 09:54 Blood Culture - Preliminary Blood No Growth after 24 hours Assessment and Plan (1) Borderline hypertension Current Visit: No Status: Acute Code(s): R03.0 - ELEVATED BLOOD-PRESSURE READING, W/O DIAGNOSIS OF HTN SNOMED Code(s): 780420109 (2) Cannabis abuse, daily use Current Visit: No Status: Acute Code(s): F12.10 - CANNABIS ABUSE, UNCOMPLICATED SNOMED Code(s): 581985496 (3) Family history of early CAD Current Visit: No Status: Acute Code(s): Z82.49 - FAMILY HX OF ISCHEM HEART DIS AND OTH DIS OF THE CIRC SYS SNOMED Code(s): 980438942 (4) Hypertriglyceridemia Current Visit: No Status: Acute Code(s): E78.1 - PURE HYPERGLYCERIDEMIA SNOMED Code(s): 757736795 (5) Status post aortic valve replacement with bioprosthetic valve Current Visit: No Status: Acute Code(s): Z95.4 - PRESENCE OF OTHER HEART- VALVE REPLACEMENT SNOMED Code(s): 3786187925193 (6) Pain of sternum Current Visit: Yes Status: Acute Code(s): R07.89 - OTHER CHEST PAIN SNOMED Code(s): 337885218 Plan: 1. Patient may be discharged home today per cardiothoracic standpoint. 2. The importance of smoking cessation was discussed with the patient. 3. Recommend use of his incentive spirometry every hour while awake. 4. Discontinue Zosyn, start Zithromax 500 mg by mouth daily 5 days. 5. Follow-up with Dr. Nichole as needed. Time with Patient: Greater than 30
[2018-07-27] MEDS ORDERED: AZITHROMYCIN 500 MG TAB PO SCH (09:00)
== END 2018-07-26 16:35 | disposition home or self-care (01) | DRG 313 ==
LOC: EC 06:02 → 3NMEDONC 09:12
PROVIDERS: ADMIT Family Medicine; ATTEND Family Medicine
DX: R07.89 Other chest pain (principal); E78.1 Pure hyperglyceridemia; E78.5 Hyperlipidemia, unspecified; F17.210 Nicotine dependence, cigarettes, uncomplicated; F41.9 Anxiety disorder, unspecified; I10 Essential (primary) hypertension; K21.9 Gastro-esophageal reflux disease without esophagitis; F32.9 Major depressive disorder, single episode, unspecified; G43.909 Migraine, unspecified, not intractable, without status migrainosus; L30.9 Dermatitis, unspecified; M50.30 Other cervical disc degeneration, unspecified cervical region; M51.36 Other intervertebral disc degeneration, lumbar region; R00.1 Bradycardia, unspecified; G89.29 Other chronic pain; Z79.02 Long term (current) use of antithrombotics/antiplatelets; Z79.899 Other long term (current) drug therapy; Z95.3 Presence of xenogenic heart valve; Z88.5 Allergy status to narcotic agent; Z82.49 Family history of ischemic heart disease and other diseases of the circulatory system
CPT/HCPCS: 36415; 71046; 71275; 80048; 80053; 82550; 82553; 83735; 84484; 85025; 85379; 85610; 85730; 87040; 93005; 96365; 96366; 96375; 96376; 99285

== ENCOUNTER 2018-09-19 11:01 | Emergency (ER) | payer BC ==
[2018-09-19 11:09] VITALS: RESP 18; TEMP 98.5
[2018-09-19] MEDS ORDERED: HYDROmorphone 1 MG/ML 1 ML SYRINGE IM STA (11:20)
--- NOTE | 2018-09-19 11:51 | ED ---
Fall HPI - General Chief Complaint: Fall Stated Complaint: Fall, shoulder pain Time Seen by Provider: 09/19/18 11:10 Source: patient, RN notes reviewed Mode of arrival: ambulatory Limitations: no limitations - History of Present Illness Initial Comments: This a 48-year-old male presents emergency Department with chief complaint of left shoulder injury. Patient states that on Sunday he was at his cabin in [facility]. Patient states that he slipped on some ice and fell onto his shoulder. Patient states that he had reconstructive chest wall surgery secondary to failed plating of his sternum. He states that they pulled his pectoral muscle over his sternum. Patient states that his pain is in his left shoulder, left clavicle region. He does state that it hurts to take deep inspiration. He denies any head injury no loss conscious. Denies any neck pain or neck stiffness. - Related Data Home Medications Medication Instructions Recorded Confirmed Metoprolol Tartrate [Lopressor] 25 mg PO QAM 01/24/17 09/19/18 Clopidogrel [Plavix] 75 mg PO DAILY 07/25/18 09/19/18 FLUoxetine HCL [PROzac] 40 mg PO DAILY 07/25/18 09/19/18 Lisinopril [Zestril] 20 mg PO DAILY 07/25/18 09/19/18 oxyCODONE HCL/ACETAMINOPHEN 1 tab PO Q6HR PRN 07/25/18 09/19/18 [Percocet 5-325 mg] Ibuprofen [Motrin] 800 mg PO TID PRN 09/19/18 09/19/18 Previous Rx's Medication Instructions Recorded Atorvastatin [Lipitor] 40 mg PO DAILY #30 tab 10/09/16 Allergies Allergy/AdvReac Type Severity Reaction Status Date / Time morphine AdvReac aggitation Verified 09/19/18 11:34 Review of Systems ROS Statement: Those systems with pertinent positive or pertinent negative responses have been documented in the HPI. ROS Other: All systems not noted in ROS Statement are negative. Past Medical History Past Medical History: GERD/Reflux, Hyperlipidemia, Hypertension, Musculoskeletal Disorder, Skin Disorder Additional Past Medical History / Comment(s): Aortic valve surgery 10/13/16 with post op wound problems and subsequent surgeries-see surgical history, DDD in neck and low back, chronic cervical and low back pain, vertigo, head injury as a child, eczema. History of Any Multi-Drug Resistant Organisms: None Reported Past Surgical History: Adenoidectomy, Hernia Repair, Tonsillectomy Additional Past Surgical History / Comment(s): KHANG, aortic valve replaced 10-13-16, revision sternal wound-wires removed and plate system placed which have all since been removed, 06/19/18 sternalplasty with pectoral muscle, cervical surgery, umbilical hernia repair, EGD, colonoscopy, benign tymor removed below R breast. Past Anesthesia/Blood Transfusion Reactions: No Reported Reaction, Motion Sickness Additional Past Anesthesia/Blood Transfusion Reaction / Comment(s): vertigo with motion,no hx blood transfusion. Past Psychological History: No Psychological Hx Reported Smoking Status: Current every day smoker Past Alcohol Use History: None Reported Past Drug Use History: Marijuana - Past Family History Mother Family Medical History: No Reported History Additional Family Medical History / Comment(s): Mother had bariatric surgery then intestinal problems after. She has vertigo. Father Additional Family Medical History / Comment(s): Pt did not know his father but knows he in a MVA. General Exam Limitations: no limitations General appearance: alert, in no apparent distress Head exam: Present: atraumatic, normocephalic, normal inspection Eye exam: Present: normal appearance, PERRL, EOMI. Absent: scleral icterus, conjunctival injection, periorbital swelling ENT exam: Present: normal exam, normal oropharynx, mucous membranes moist Neck exam: Present: normal inspection, full ROM. Absent: tenderness, meningismus, lymphadenopathy Respiratory exam: Present: normal lung sounds bilaterally, chest wall tenderness (Tenderness over the left clavicle region, surgical scar noted on anterior chest wall which is intact, mild left upper rib tenderness). Absent: respiratory distress, wheezes, rales, rhonchi, stridor Cardiovascular Exam: Present: regular rate, normal rhythm, normal heart sounds. Absent: systolic murmur, diastolic murmur, rubs, gallop, clicks GI/Abdominal exam: Present: soft, normal bowel sounds. Absent: distended, tenderness, guarding, rebound, rigid Extremities exam: Present: other (Left shoulder limited range of motion secondary pain, tenderness over the anterior lateral aspect and over the left clavicle neurovascular intact upper extremities) Back exam: Present: full ROM. Absent: tenderness, paraspinal tenderness, vertebral tenderness Neurological exam: Present: alert, oriented X3, CN II-XII intact Skin exam: Present: warm, dry, intact, normal color. Absent: rash Course Vital Signs 09/19/18 11:06 Temperature 98.5 F Pulse Rate 73 Respiratory 18 Rate Blood Pressure 165/103 O2 Sat by Pulse 100 Oximetry Medical Decision Making - Medical Decision Making 48-year-old male presented from for a fall. X-rays obtained of left shoulder, chest and ribs. No acute fracture. There is no evidence of pneumothorax. It is concerning for possible rotator cuff injury. Patient will follow-up with o rthopedics. Patient also advised to follow-up with her thoracic surgeon as he had surgery 3 months ago. Patient agrees this plan patient's pain is improved and return parameters were discussed. Disposition Clinical Impression: Fall, Left shoulder strain, Chest wall pain Disposition: HOME SELF-CARE Condition: Stable Instructions (If sedation given, give patient instructions): Shoulder Sprain (ED) Additional Instructions: Please return to the Emergency Department if symptoms worsen or any other concerns. Is patient prescribed a controlled substance at d/c from ED?: No Referrals: Matthew Katz MD [Primary Care Provider] - 1-2 days Boris Perez MD [STAFF PHYSICIAN] - 1-2 days Time of Disposition: 12:34
--- NOTE | 2018-09-19 11:59 | XR ---
EXAMINATION TYPE: XR shoulder complete LT DATE OF EXAM: 09/19/2018 COMPARISON: NONE HISTORY: Pain TECHNIQUE: Three views are submitted. FINDINGS: The osseous structures are intact. There is no acute fracture or dislocation. Hypertrophic change of the AC joint. Lung is clear. IMPRESSION: 1. AC joint arthropathy. Correlate for rotator cuff impingement.
--- NOTE | 2018-09-19 12:02 | XR ---
EXAMINATION TYPE: XR ribs LT w pa chest xray DATE OF EXAM: 09/19/2018 COMPARISON: NONE HISTORY: Pain TECHNIQUE: One view of the chest and 4 views of the left ribs are submitted FINDINGS: Postsurgical change overlying the cervical spine. Lungs are clear. No overt failure. Heart size stable. Surgical changes are noted overlying the heart likely related to previous cardiac valve surgery. No acute displaced rib fracture identified. There is pleural-based thickening bilaterally. IMPRESSION: No acute displaced rib fracture.
[2018-09-19] MEDS ORDERED: oxyCODONE-APAP 5-325MG 1 EACH TAB PO STA (12:32)
[2018-09-19 12:54] VITALS: BP 152/98; PULSE 64
== END 2018-09-19 12:55 | disposition home or self-care (01) ==
LOC: EC 11:01
DX: S46.912A Strain of unspecified muscle, fascia and tendon at shoulder and upper arm level, left arm, initial encounter (principal); R07.89 Other chest pain; E78.5 Hyperlipidemia, unspecified; I10 Essential (primary) hypertension; F17.200 Nicotine dependence, unspecified, uncomplicated; Z95.2 Presence of prosthetic heart valve; Z98.890 Other specified postprocedural states; Z79.02 Long term (current) use of antithrombotics/antiplatelets; Z79.899 Other long term (current) drug therapy; Z88.5 Allergy status to narcotic agent; W00.0XXA Fall on same level due to ice and snow, initial encounter; Y92.009 Unspecified place in unspecified non-institutional (private) residence as the place of occurrence of the external cause
CPT/HCPCS: 71101; 73030; 99283; 96372; J1170

== ENCOUNTER → 2018-10-14 | Outpatient (CLI) | payer BC ==
[2018-10-14 18:24] LABS: ALT 30 U/L (10-49); AST 26 U/L (14-35); Cholesterol 243 mg/dL (0-200); Triglycerides >1100.0 mg/dL (0.0-149.0)
== END | disposition home or self-care (01) ==
LOC: LABWHC1 08:07
PROVIDERS: ATTEND Internal Medicine Interventional Cardiology
DX: E78.2 Mixed hyperlipidemia (principal)
CPT/HCPCS: 36415; 80061; 84450; 84460

== ENCOUNTER 2018-11-30 09:22 | Emergency (ER) | payer BC ==
[2018-11-30] MEDS ORDERED: KETOROLAC 30 MG/ML 1 ML VIAL IVP STA (09:58)
[2018-11-30] MEDS ORDERED: HYDROmorphone 0.5 MG/0.5 ML SYRINGE IVP STA (09:58)
--- NOTE | 2018-11-30 10:02 | ED ---
Chest Pain HPI - General Chief Complaint: Chest Pain Stated Complaint: Side Pain Time Seen by Provider: 11/30/18 09:38 Source: patient, RN notes reviewed, old records reviewed Mode of arrival: wheelchair Limitations: no limitations - History of Present Illness Initial Comments: Patient is a 48-year-old male presents emergency room today for right-sided rib pain. Patient reports that he was stretching and shower heard a pop. Patient states took his breath away and brought him to the knees. Patient states he's had a history of open-heart surgery, and has right pectoralis muscle reconstructive surgery. Patient states that he has not had pain in the posterior ribs like this before. Patient states that he's had no fevers or chills. Pain seems to be positional. Patient states that for the f last week he has been having some right-sided rib pain with a dull achy pain. - Related Data Home Medications Medication Instructions Recorded Confirmed Metoprolol Tartrate [Lopressor] 25 mg PO QAM 01/24/17 11/30/18 Clopidogrel [Plavix] 75 mg PO DAILY 07/25/18 11/30/18 FLUoxetine HCL [PROzac] 40 mg PO DAILY 07/25/18 11/30/18 oxyCODONE HCL/ACETAMINOPHEN 1 tab PO Q6HR PRN 07/25/18 11/30/18 [Percocet 5-325 mg] Ibuprofen [Motrin] 800 mg PO TID PRN 09/19/18 11/30/18 Lisinopril 40 mg PO DAILY 11/30/18 11/30/18 Previous Rx's Medication Instructions Recorded Atorvastatin [Lipitor] 40 mg PO DAILY #30 tab 10/09/16 Allergies Allergy/AdvReac Type Severity Reaction Status Date / Time morphine AdvReac aggitation Verified 11/30/18 09:41 Review of Systems ROS Statement: Those systems with pertinent positive or pertinent negative responses have been documented in the HPI. ROS Other: All systems not noted in ROS Statement are negative. EKG Findings - EKG Comments: EKG Findings:: EKG shows normal sinus rhythm cannot rule out inferior infarct age undetermined. ST and T-wave abnormality considering lateral ischemia. Ventricular rate of 70 bpm. Intervals 142 ms. QRS ration 90 ms. QT QTc is 400/432 ms. Past Medical History Past Medical History: GERD/Reflux, Hyperlipidemia, Hypertension, Musculoskeletal Disorder, Skin Disorder Additional Past Medical History / Comment(s): Aortic valve surgery 10/13/16 with post op wound problems and subsequent surgeries-see surgical history, DDD in neck and low back, chronic cervical and low back pain, vertigo, head injury as a child, eczema. History of Any Multi-Drug Resistant Organisms: None Reported Past Surgical History: Adenoidectomy, Hernia Repair, Tonsillectomy Additional Past Surgical History / Comment(s): KHANG, aortic valve replaced 10-13-16, revision sternal wound-wires removed and plate system placed which have all since been removed, 06/19/18 sternalplasty with pectoral muscle, cervical surgery, umbilical hernia repair, EGD, colonoscopy, benign tymor removed below R breast. Past Anesthesia/Blood Transfusion Reactions: No Reported Reaction, Motion Sickness Additional Past Anesthesia/Blood Transfusion Reaction / Comment(s): vertigo with motion,no hx blood transfusion. Past Psychological History: No Psychological Hx Reported Smoking Status: Current every day smoker Past Alcohol Use History: None Reported Past Drug Use History: Marijuana - Past Family History Mother Family Medical History: No Reported History Additional Family Medical History / Comment(s): Mother had bariatric surgery then intestinal problems after. She has vertigo. Father Additional Family Medical History / Comment(s): Pt did not know his father but knows he in a MVA. General Exam - General Exam Comments Initial Comments: 48-year-old male. Alert and oriented 3. No significant distress. Limitations: no limitations General appearance: alert, in no apparent distress Head exam: Present: atraumatic, normocephalic, normal inspection Eye exam: Present: normal appearance, PERRL, EOMI. Absent: scleral icterus, conjunctival injection, periorbital swelling ENT exam: Present: normal exam, mucous membranes moist Neck exam: Present: normal inspection. Absent: tenderness, meningismus, lymphadenopathy Respiratory exam: Present: normal lung sounds bilaterally, other ( is tenderness over the 7-10 right ribs.). Absent: respiratory distress, wheezes, rales, rhonchi, stridor Cardiovascular Exam: Present: regular rate, normal rhythm, normal heart sounds. Absent: systolic murmur, diastolic murmur, rubs, gallop, clicks GI/Abdominal exam: Present: soft, normal bowel sounds. Absent: distended, guarding, rebound, rigid Extremities exam: Present: normal inspection, full ROM, normal capillary refill. Absent: tenderness, pedal edema, joint swelling, calf tenderness Back exam: Present: normal inspection Neurological exam: Present: alert, oriented X3, CN II-XII intact Psychiatric exam: Present: normal affect, normal mood Skin exam: Present: warm, dry, intact, normal color. Absent: rash Course Vital Signs 11/30/18 09:25 Temperature 98.6 F Pulse Rate 78 Respiratory 16 Rate Blood Pressure 168/93 O2 Sat by Pulse 100 Oximetry Chest Pain [facility] Patient is a 40-year-old male presents for his arms today with onset of right rib pain after stretching. He felt a pop during that time. Said history of op en-heart surgery once ago and right pectoralis muscle reconstructive surgery. Patient chest x-ray showed evidence Patient draped is had no coughing. I believe this is not accurate, unlikely for pneumonia. Blood work was reviewed and normal. Patient's white blood cell count is normal. Troponin is negative. EKG shows no changes. The rib x-rays stated there is no displaced rib fracture this time however on my examination of the chest x-ray this appears to be a fracture over the right seventh rib. Is currently on Percocet at this time. Patient advised to use incentive spirometry. Continue his at home pain medication. Patient advised to have close follow up with his primary care doctor. Questions answered return parameters were discussed. Disposition Clinical Impression: Right rib fracture Disposition: HOME SELF-CARE Condition: Good Instructions (If sedation given, give patient instructions): Rib Fracture (ED) Additional Instructions: Patient has a close follow-up with your primary care physician and follow-up with cardiothoracic surgery. Return to the emergency department if any alarming signs or symptoms occur. Use incentive spirometer as directed. Take her at home pain medication. Is patient prescribed a controlled substance at d/c from ED?: No Referrals: Matthew Katz MD [Primary Care Provider] - 1-2 days Time of Disposition: 11:54
[2018-11-30 10:12] LABS: Anisocytosis Slight; Basophils % (A) 1 %; Eosinophils # (A) 0.2 k/uL (0-0.7); Eosinophils % (A) 2 %; HCT 42.2 % (39.0-53.0); Lymphocytes # (A) 2.3 k/uL (1.0-4.8); Lymphocytes % (A) 24 %; MCH 28.8 pg (25.0-35.0); MCHC 33.2 g/dL (31.0-37.0); MCV 86.7 fL (80.0-100.0); Mean Platelet Volume 8.1; Monocytes # (A) 0.4 k/uL (0-1.0); Monocytes % (A) 4 %; Neutrophils # (A) 6.4 k/uL (1.3-7.7); Neutrophils % (A) 67 %; Platelet Count 252 k/uL (150-450); RBC 4.87 m/uL (4.30-5.90); RDW 17.1 % (11.5-15.5); WBC 9.5 k/uL (3.8-10.6)
[2018-11-30 10:25] LABS: INR 0.9 (<1.2); Partial Thromboplastin Time 24.7 sec (22.0-30.0); Prothrombin Time 9.6 sec (9.0-12.0)
[2018-11-30 10:27] LABS: ALT 28 U/L (21-72); AST 26 U/L (17-59); Albumin 4.8 g/dL (3.5-5.0); Alkaline Phosphatase 102 U/L (38-126); Anion Gap 10 mmol/L; Blood Urea Nitrogen 22 mg/dL (9-20); Calcium 9.9 mg/dL (8.4-10.2); Carbon Dioxide 23 mmol/L (22-30); Chloride 109 mmol/L (98-107); Glucose 124 mg/dL (74-99); Magnesium 2.2 mg/dL (1.6-2.3); Potassium 4.9 mmol/L (3.5-5.1); Sodium 142 mmol/L (137-145); Total Bilirubin 0.4 mg/dL (0.2-1.3); Total Protein 7.8 g/dL (6.3-8.2)
--- NOTE | 2018-11-30 10:31 | XR ---
EXAMINATION TYPE: XR chest 2V DATE OF EXAM: 11/30/2018 HISTORY: Chest Pain. REFERENCE: Previous study dated 07/25/2018. FINDINGS: There appears to been a previous aortic valve replacement. There is metallic density overly ing the lower cervical spine which may represent fusion material. Heart size upper limits of normal. There are patchy peripheral densities in both lungs which May repr esent small areas of pneumonia. Pleural spaces are clear. IMPRESSION: 1. PATCHY AREAS OF INFILTRATE PRESENT BILATERALLY. 2. POSTSURGICAL CHANGE.
--- NOTE | 2018-11-30 10:32 | XR ---
EXAMINATION TYPE: XR ribs RT , 4 VIEWS DATE OF EXAM ORDERED: 11/30/2018 HISTORY: Pain. COMPARISON: None. FINDINGS: No displaced rib fractures seen. The underlying lung is unremarkable. There has been a pre vious aortic valve replacement. IMPRESSION: I DO NOT SEE A DISPLACED RIB FRACTURE AT THIS TIME.
[2018-11-30] MEDS ORDERED: HYDROmorphone 1 MG/ML 1 ML SYRINGE IVP STA (12:11)
[2018-11-30 12:38] VITALS: RESP 18
[2018-11-30 12:45] VITALS: BP 135/86; PULSE 60; TEMP 98.2
== END 2018-11-30 12:44 | disposition home or self-care (01) ==
LOC: EC 09:22
DX: S22.31XA Fracture of one rib, right side, initial encounter for closed fracture (principal); I10 Essential (primary) hypertension; F17.200 Nicotine dependence, unspecified, uncomplicated; Z79.02 Long term (current) use of antithrombotics/antiplatelets; Z79.899 Other long term (current) drug therapy; Z88.5 Allergy status to narcotic agent; Z95.4 Presence of other heart-valve replacement; X50.9XXA Other and unspecified overexertion or strenuous movements or postures, initial encounter
CPT/HCPCS: 36415; 93005; 80053; 83735; 84484; 85025; 85610; 85730; 71100; 71046; 99284; 96374; 96375; 96376; J1885; J1170 ×2

== ENCOUNTER 2019-03-05 05:13 | Emergency (ER) | payer BC ==
[2019-03-05 05:20] VITALS: BP 153/87; PULSE 71; RESP 18; TEMP 97.7
[2019-03-05] MEDS ORDERED: HYDROmorphone 1 MG/ML 1 ML SYRINGE IVP STA (06:04)
[2019-03-05] MEDS ORDERED: HYDROmorphone 1 MG/ML 1 ML SYRINGE IM STA ×2 (06:06→06:55)
--- NOTE | 2019-03-05 06:17 | ED ---
Back Pain HPI - General Chief Complaint: Back Pain/Injury Stated Complaint: Side Pain Time Seen by Provider: 03/05/19 05:49 Source: patient Limitations: no limitations - History of Present Illness Initial Comments: This patient is a 48-year-old man who complains of having proximally 2 weeks of pain that radiates from the right side of his thoracic back area to around the chest wall on the right side. He states that he initially had an injury months ago when he was twisting to his left and sneezed. He felt a pop in that area and had weeks of pain which did eventually improve. The patient believes that about 2 weeks ago he reaggravated this injury. Since that time he has been having intermittent pains but they were much worse over the course of last night and this morning. The patient states that he usually uses Percocet but it was not relieving the pain at home. He denies any new symptoms, including no fever, dyspnea, cough, diaphoresis, nausea or vomiting. There is no pain into the abdomen. He has not had a rash. MD Complaint: back pain Onset/Timin -: week(s) Similar Symptoms Previously: Yes Place: home Severity: severe Quality: burning, sharp Consistency: intermittent Improves With: immobilization Worsens With: movement Context: turning/twisting Associated Symptoms: denies other symptoms Treatments Prior to Arrival: prescription analgesics - Related Data Home Medications Medication Instructions Recorded Confirmed Metoprolol Tartrate [Lopressor] 25 mg PO QAM 01/24/17 11/30/18 Clopidogrel [Plavix] 75 mg PO DAILY 07/25/18 11/30/18 FLUoxetine HCL [PROzac] 40 mg PO DAILY 07/25/18 11/30/18 oxyCODONE HCL/ACETAMINOPHEN 1 tab PO Q6HR PRN 07/25/18 11/30/18 [Percocet 5-325 mg] Ibuprofen [Motrin] 800 mg PO TID PRN 09/19/18 11/30/18 Lisinopril 40 mg PO DAILY 11/30/18 11/30/18 Previous Rx's Medication Instructions Recorded Atorvastatin [Lipitor] 40 mg PO DAILY #30 tab 10/09/16 Allergies Allergy/AdvReac Type Severity Reaction Status Date / Time morphine AdvReac aggitation Verified 11/30/18 09:41 Review of Systems ROS Statement: Those systems with pertinent positive or pertinent negative responses have been documented in the HPI. ROS Other: All systems not noted in ROS Statement are negative. Constitutional: Denies: fever, chills Respiratory: Denies: cough, dyspnea, hemoptysis Cardiovascular: Reports: as per HPI, chest pain. Denies: edema Gastrointestinal: Denies: abdominal pain, nausea, vomiting, diarrhea, constipation Genitourinary: Denies: dysuria, hematuria Musculoskeletal: Reports: as per HPI, back pain Skin: Denies: rash Neurological: Denies: weakness, numbness Past Medical History Past Medical History: GERD/Reflux, Hyperlipidemia, Hypertension, Musculoskeletal Disorder, Skin Disorder Additional Past Medical History / Comment(s): Aortic valve surgery 10/13/16 with post op wound problems and subsequent surgeries-see surgical history, DDD in neck and low back, chronic cervical and low back pain, vertigo, head injury as a child, eczema. History of Any Multi-Drug Resistant Organisms: None Reported Past Surgical History: Adenoidectomy, Hernia Repair, Tonsillectomy Additional Past Surgical History / Comment(s): KHANG, aortic valve replaced 10-13-16, revision sternal wound-wires removed and plate system placed which have all since been removed, 06/19/18 sternalplasty with pectoral muscle, cervical surgery, umbilical hernia repair, EGD, colonoscopy, benign tymor removed below R breast. Past Anesthesia/Blood Transfusion Reactions: No Reported Reaction, Motion Sickness Additional Past Anesthesia/Blood Transfusion Reaction / Comment(s): vertigo with motion,no hx blood transfusion. Past Psychological History: No Psychological Hx Reported Smoking Status: Current every day smoker Past Alcohol Use History: None Reported Past Drug Use History: Marijuana - Past Family History Mother Family Medical History: No Reported History Additional Family Medical History / Comment(s): Mother had bariatric surgery then intestinal problems after. She has vertigo. Father Additional Family Medical History / Comment(s): Pt did not know his father but knows he in a MVA. General Exam Limitations: no limitations General appearance: alert, in no apparent distress Head exam: Present: atraumatic, normocephalic Respiratory exam: Present: normal lung sounds bilaterally, chest wall tenderness. Absent: respiratory distress, wheezes, rales, rhonchi, stridor Cardiovascular Exam: Present: regular rate, normal rhythm, normal heart sounds. Absent: systolic murmur, diastolic murmur, rubs, gallop GI/Abdominal exam: Present: soft. Absent: distended, tenderness, guarding, rebound, rigid, mass Skin exam: Present: warm, dry, intact, normal color. Absent: rash Course Vital Signs 03/05/19 05:14 Temperature 97.7 F Pulse Rate 71 Respiratory 18 Rate Blood Pressure 153/87 O2 Sat by Pulse 100 Oximetry Disposition Clinical Impression: Chest wall pain Disposition: HOME SELF-CARE Condition: Good Instructions (If sedation given, give patient instructions): Chest Wall Pain (ED) Is patient prescribed a controlled substance at d/c from ED?: No Referrals: Matthew Katz MD [Primary Care Provider] - 1-2 days Grant Bentley MD [STAFF PHYSICIAN] - 1-2 days
== END 2019-03-05 07:04 | disposition home or self-care (01) ==
LOC: EC 05:13
DX: R07.89 Other chest pain (principal); I10 Essential (primary) hypertension; F17.200 Nicotine dependence, unspecified, uncomplicated; Z79.02 Long term (current) use of antithrombotics/antiplatelets; Z79.899 Other long term (current) drug therapy; Z88.5 Allergy status to narcotic agent
CPT/HCPCS: 99283; 96372 ×2; J1170

== ENCOUNTER → 2019-03-27 | Outpatient (CLI) | payer BC, MEDICARE ==
[2019-03-27 13:33] VITALS: BP 158/101; PULSE 85; RESP 20
--- NOTE | 2019-03-27 14:12 | P.CONS ---
History of Present Illness - Reason for Consult Consult date: 03/27/19 - Chief Complaint Right chest wall pain - History of Present Illness This is a 48-year-old gentleman with history of aortic valve replacement due to severe aortic regurgitation. The patient then had to have pectoralis major muscle flap after taking the sternal wires out due to malunion patient is a 17. However shortly after that and when he was stretching he felt a pop on the right side of his chest with severe pain radiating to the front of the chest which subsided after a few days. Since then his been having episodes of severe chest wall pain on the right side with burning sensation and sensitivity to touch. The patient has been using Percocet for his lower back pain and anterior chest wall pain. His main concern now is his right chest wall pain. He does describe numbness and tingling in the right side of his chest. This pain does not get worse by deep breathing. It does wake him up at night but he denies any weight loss recently. The patient states that they found a rib fracture on the right side previously. Past Medical History Past Medical History: GERD/Reflux, Hyperlipidemia, Hypertension, Musculoskeletal Disorder, Skin Disorder Additional Past Medical History / Comment(s): Aortic valve surgery 10/13/16 with post op wound problems and subsequent surgeries-see surgical history, DDD in neck and low back, vertigo, head injury as a child, eczema., hx of migraines since a child-improved since heart surgery., Some days he will get nauseous and gag when having bowel movement., Fx rib in November 2018 while stretching in the shower., States low energy and hurts everywhere. History of Any Multi-Drug Resistant Organisms: None Reported Past Surgical History: Adenoidectomy, Hernia Repair, Tonsillectomy Additional Past Surgical History / Comment(s): KHANG, aortic valve replaced 10-13-16, revision sternal wound-wires removed and plate system placed which have all since been removed, 06/19/18 sternalplasty with pectoral muscle, cervical surgery, umbilical hernia repair, EGD, colonoscopy, benign tymor removed below R breast. Past Anesthesia/Blood Transfusion Reactions: No Reported Reaction, Motion Sickness Additional Past Anesthesia/Blood Transfusion Reaction / Comm: no hx blood transfusion. Smoking Status: Current every day smoker - Past Family History Mother Family Medical History: No Reported History Additional Family Medical History / Comment(s): Mother had bariatric surgery then intestinal problems after. She has vertigo. Father Additional Family Medical History / Comment(s): Pt did not know his father but knows he in a MVA. Medications and Allergies Home Medications Medication Instructions Recorded Confirmed Type Atorvastatin [Lipitor] 40 mg PO DAILY #30 tab 10/09/16 03/24/19 Rx Metoprolol Tartrate [Lopressor] 25 mg PO BID 01/24/17 03/24/19 History Clopidogrel [Plavix] 75 mg PO DAILY 07/25/18 03/24/19 History oxyCODONE HCL/ACETAMINOPHEN 1 tab PO Q6HR PRN 07/25/18 03/24/19 History [Percocet 5-325 mg] Lisinopril 40 mg PO DAILY 11/30/18 03/24/19 History Aspirin 325 mg PO DAILY 03/24/19 03/24/19 History Multivit-Min/Folic/Vit K/Lycop 1 each PO DAILY 03/24/19 03/24/19 History [Men's Multivitamin Tablet] Allergies Allergy/AdvReac Type Severity Reaction Status Date / Time morphine AdvReac aggitation Verified 03/24/19 14:03 Physical Exam Vitals: Vital Signs Pulse Resp BP Pulse Ox 03/27/19 13:12 85 20 158/101 97 - Constitutional General appearance: morbidly obese - EENT Eyes: PERRLA - Respiratory Unlabored breathing - Cardiovascular Rhythm: regular - Neurologic Neurologic: CNII-XII intact - Musculoskeletal Positive tenderness in the right side of his chest wall underneath the right breast. There is a gap at the chest wall midline on the bottom half of the sternum by palpation. - Psychiatric Psychiatric: A&O x's 3, appropriate affect, intact judgment & insight Assessment and Plan Plan: This is a 48-year-old gentleman with right chest wall pain with paresthesia and burning sensation. He also has allodynia to touch. He has no history of herpes zoster. 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 I'll prescribe Lyrica 75 mg to go up gradually to 3 pills a day If Lyrica does not help the patient's pain then we'll plan on doing intercostal nerve block for levels T 6, 7, and 8 under fluoroscopic guidance. We may add more levels at the time of the procedure the patient leaned on the location of his pain. If this pain continues we might need to do a bone scan to rule out any bony lesions in the right ribs. The patient will continue using her Percocet from his primary care physician. The patient will have to hold his Plavix for 7 days before the procedure and he will check with his health information director about the safety of doing that. I thank you for the referral.
== END | disposition home or self-care (01) ==
LOC: PNWHC3 13:05
PROVIDERS: ATTEND Anesthesiology
DX: R07.89 Other chest pain (principal); Z79.02 Long term (current) use of antithrombotics/antiplatelets; Z79.82 Long term (current) use of aspirin; Z79.899 Other long term (current) drug therapy
CPT/HCPCS: 99211

== ENCOUNTER 2019-04-16 06:16 | Day surgery (SDC) | payer MEDICARE ==
[2019-04-15 09:12] VITALS: BMI 37.6
[~2019-04-16 06:16] MED LIST changes: -DEXAMETHASONE SOD PHOSPHATE 10 MG/ML 1 ML VIAL IV ONE; +LACTATED RINGERS 1,000 ML IV SCH; -MIDAZOLAM 2 MG/2 ML VIAL IV PRN; -SCOPOLAMINE 1.5MG/72HR PATCH TRANSDERM ONE; -ceFAZolin 2 GM in SODIUM CHLORIDE 0.9% 100 ML IVPB ONE
[2019-04-16 07:15] VITALS: TEMP 97.9
[2019-04-16] MEDS ORDERED: LIDOCAINE 1% 20 ML VIAL (10MG/ML) FOR IV START INTRADERMA ONE (07:24)
[2019-04-16] MEDS ORDERED: IV FLUID CONTINUATION 1,000 ML IV ONE ×2 (07:50)
--- NOTE | 2019-04-16 07:51 | P.PCN ---
Date of Procedure: 04/16/19 Procedure(s) Performed: PROCEDURE: right sided T6. T7 ,T8 , , T9 Intercostal nerve block under fluoroscopic guidance.( Fluoroscopy images available in the radiology department ) PREOP DIAGNOSIS: Right Intercostal neuralgia. POSTOP DIAGNOSIS: Right Intercostal neuralgia. ANESTHESIA:moderate sedation with Versed, 2 mg and Fentanyl 150 g EBL: Minimal COMPLICATION: None. IV FLUIDS: 100 mL of normal saline. PROCEDURE INDICATION: Chronic right-sided thoracic pain secondary to i ntercostals neuralgia and he is here for interpersonal, risk and benefits and alternative of the procedure discussed with the patient he agreed with the preceding PROCEDURE DESCRIPTION: The patient was seen and identified in the preoperative area. Risks, benefits, complications, and alternatives were discussed with the patient. The patient agreed to proceed with the procedure and signed the consent. IV was started. Vital signs were stable throughout the procedure. The patient was taken to the procedure room and was placed in the prone position on the procedure table. The painful area was marked and then under fluoroscopy guidance we found that the painful area is between T6 through T9 levels The thoracic area was prepped and draped in the usual sterile fashion. Critical pause was taken. Using anteroposterior fluoroscopy, the T6 rib on the right/left side was identified. An area approximately 2 inches lateral to the vertebral midline was localized under fluoroscopy. Subsequently, a 25-gauge, 3-1/2-inch needle was advanced under fluoroscopy towards the inferior aspect of the rib. After making contact with the rib, the needle was walked off and carefully slipped inferiorly off the rib. After negative aspiration and with the absence of paresthesias, 2 ml of Ropivacaine 0.5 % mixed with Depo-Medrol . The needle was subsequently removed while being flushed with Ropivacaine 0.5% and the same procedure was repeated at the levels of T7,T8 ,T9 Total of 8 ML of ropivacaine 0.5% mixed with 40 mg of Depo-Medrol and used, 2 mL injected at each level after negative aspiration. Isovue 200, 1 mL injected at each level and before we injected the medication to confirm that there is no intravascular spread At the end of the procedure, skin was cleansed, and bandages were applied. Pa tient denied any shortness of breath after the procedure. Lungs auscultation showed clear and equal air entry bilaterally after the procedure. The patient tolerated the procedure well without complications. Patient was observed in the recovery area until he met all discharge criteria. CxR ordered in the PACU to rule out pneumothorax
[2019-04-16 08:11] VITALS: BP 129/77; PULSE 68; RESP 18
--- NOTE | 2019-04-16 08:25 | XR ---
EXAMINATION TYPE: XR chest 1V portable DATE OF EXAM: 04/16/2019 COMPARISON: Prior right ribs and chest x-ray dated 11/30/2018 HISTORY: pain, rule out pneumothorax TECHNIQUE: Single frontal view of the chest is obtained. FINDINGS: There is pleural thickening likely secondary to patient's previous rib fracture. No eviden t pneumothorax or pleural effusion. Cardiomediastinal silhouette, pulmonary vascularity and jeanette are stable. Heart size may be accentuated by technique. IMPRESSION: No acute process.
--- NOTE | 2019-04-16 09:35 | FL ---
Fluoroscopy INDICATION: Pain FINDINGS: Fluoroscopy time: 23 seconds. Images obtained: 1. IMPRESSIONS: 1. Documentation of fluoroscopy.
== END 2019-04-16 09:00 | disposition home or self-care (01) ==
LOC: ORPAIN 06:16
PROVIDERS: ATTEND Specialist
DX: G89.29 Other chronic pain (principal); R07.82 Intercostal pain; Z88.5 Allergy status to narcotic agent; Z79.02 Long term (current) use of antithrombotics/antiplatelets
CPT/HCPCS: 71045; 64421; J2250; J1030; J3010; 99152

== ENCOUNTER 2019-05-12 06:34 | Day surgery (SDC) | payer MEDICARE ==
[2019-05-08 15:22] VITALS: BMI 51.0
[2019-05-12] MEDS ORDERED: LIDOCAINE 1% 20 ML VIAL (10MG/ML) FOR IV START INTRADERMA ONE (07:12)
[2019-05-12 07:16] VITALS: RESP 16; TEMP 98
--- NOTE | 2019-05-12 08:23 | P.PCN ---
Date of Procedure: 05/12/19 Procedure(s) Performed: PROCEDURE: right sided T6. T7 ,T8 , T9 Intercostal nerve block under fluoro scopic guidance.( Fluoroscopy images available in the radiology department ) PREOP DIAGNOSIS: Right Intercostal neuralgia. POSTOP DIAGNOSIS: Right Intercostal neuralgia. ANESTHESIA:moderate sedation with Versed, 2 mg and Fentanyl 100 g EBL: Minimal COMPLICATION: None. IV FLUIDS: 100 mL of normal saline. PROCEDURE INDICATION: Chronic right-sided thoracic pain secondary to intercostals neuralgia and he is here for interpersonal, risk and benefits and alternative of the procedure discussed with the patient he agreed with the preceding PROCEDURE DESCRIPTION: The patient was seen and identified in the preoperative area. Risks, benefits, complications, and alternatives were discussed with the patient. The patient agreed to proceed with the procedure and signed the consent. IV was started. Vital signs were stable throughout the procedure. The patient was taken to the procedure room and was placed in the prone position on the procedure table. The painful area was marked and then under fluoroscopy guidance we found that the painful area is between T6 through T9 levels The thoracic area was prepped and draped in the usual sterile fashion. Critical pause was taken. Using anteroposterior fluoroscopy, the T6 rib on the right/left side was identified. An area approximately 2 inches lateral to the vertebral midline was localized under fluoroscopy. Subsequently, a 25-gauge, 3-1/2-inch needle was advanced under fluoroscopy towards the inferior aspect of the rib. After making contact with the rib, the needle was walked off and carefully slipped inferiorly off the rib. After negative aspiration and with the absence of paresthesias, 2 ml of Ropivacaine 0.5 % mixed with Depo-Medrol . The needle was subsequently removed while being flushed with Ropivacaine 0.5% and the same procedure was repeated at the levels of T7,T8 ,T9 Total of 4 ML of ropivacaine 0.5% mixed with 40 mg of Depo-Medrol and used, 2 mL injected at each level after negative aspiration. Isovue 200, 1 mL injected at each level and before we injected the medication to confirm that there is no intravascular spread At the end of the procedure, skin was cleansed, and bandages were applied. Patient denied any shortness of breath after the procedure. Lungs auscultation showed clear and equal air entry bilaterally after the procedure. The patient tolerated the procedure well without complications. Patient was observed in the recovery area until he met all discharge criteria. CxR ordered in the PACU to rule out pneumothorax. He will be seen in followup in clinic.
[2019-05-12] MEDS ORDERED: IV FLUID CONTINUATION 1,000 ML IV ONE (08:25)
--- NOTE | 2019-05-12 08:57 | FL ---
EXAMINATION TYPE: FL guided pain mgmt statistic DATE OF EXAM: 05/12/2019 FLUOROSCOPY Fluoroscopy time of 17 seconds was used during right intercostal nerve block. 3 image/s document/s t he procedure.
--- NOTE | 2019-05-12 09:24 | XR ---
EXAMINATION TYPE: XR chest 1V portable DATE OF EXAM: 05/12/2019 Comparison: 04/16/2019, 11/30/2018, and 07/25/2018 Clinical History: 48-year-old male s/p intercostal ne rve block Findings: Heart upper limits of normal in size. Surgical clips project at the medial right base. Mild diffuse i nterstitial prominence. Focal opacity peripheral right mid to lower lung appears increased from 2018 but stable from 11/30/2018. Intervertebral disc prosthesis within the cervical spine. No appreciab le pneumothorax. Impression: 1. No appreciable pneumothorax. 2. Pleural parenchymal opacity peripheral right mid to lower lung is increased as compared to 07/25/19 19 but relatively similar to 11/30/2018. Continued short interval follow-up is recommended such as in 3 -6 weeks[address] Contrast-enhanced CT can be performed if any progressive changes are encountered.
[2019-05-12 09:30] VITALS: BP 127/78; PULSE 65
== END 2019-05-12 09:40 | disposition home or self-care (01) ==
LOC: ORPAIN 06:34
PROVIDERS: ATTEND Student in an Organized Health Care Education/Training Program
DX: G89.29 Other chronic pain (principal); G58.0 Intercostal neuropathy; Z88.5 Allergy status to narcotic agent; Z79.02 Long term (current) use of antithrombotics/antiplatelets
CPT/HCPCS: 71045; 64421; J2250; J1030; J3010; Q9966; 64420; 99152

== ENCOUNTER → 2019-06-09 | Outpatient (CLI) | payer MEDICARE ==
[2019-06-09 14:09] VITALS: BP 153/99; PULSE 63; RESP 16
--- NOTE | 2019-06-12 07:30 | P.PAINPG ---
Subjective Progress Note Date: 06/09/19 This is a 48-year-old gentleman with history of aortic valve replacement due to severe aortic regurgitationin September 2016. The patient then had to have pectoralis major muscle flap after taking the sternal wires out due to malunion6 months after his aortic valve replacement. However shortly after that and when he was stretching he felt a pop on the right side of his chest with severe pain radiating to the front of the chest which subsided after a few days. Since then his been having episodes of severe chest wall pain on the right side with burning sensation and sensitivity to touch. The patient has been using Percocet for his lower back pain and anterior chest wall pain. he underwent right-sided T6 to T9 intercostal nerve blocks on 04/16/2019 and 05/12/2019. He reports good benefit from this procedure, currently rates his right chest pain as 3-4/10. he would like to have this procedure repeated. Review of systems is negative for chest pain, shortness of breath, new onset weakness, numbness/tingling, abdominal pain, malaise, fever, night sweats, chills, homicidal or suicidal ideation, or bowel or bladder incontinence. Physical Exam Physical exam: Vitals: Reviewed in EMR GENERAL: Well appearing, in no acute distress PSYCH: Mood and affect is appropriate. Awake, alert, and oriented SKIN: Skin color, texture, turgor normal, no rashes or lesions HEENT: Normocephalic, atraumatic. EOM intact CV: No pedal edema, prominent bulge and scar is visible in anterior chest wall. There is a gap at the chest wall midline on the bottom half of the sternum by palpation. RESP: Respirations are unlabored, no audible wheezing GI: Abdomen non-distended MUSCULOSKELETAL: Bilateral upper and lower extremity strength is normal and symmetric. No atrophy or tone abnormalities are noted. tenderness to palpation along the right rib cage Extremities: Peripheral joint ROM is full and pain free without obvious instability or laxity in all four extremities. No edema or skin discolorations noted. Gait: Gait is normal NEUR: cranial nerves are grossly intact Assessment and Plan Plan: This is a 48-year-old gentleman with right chest wall pain following cardiac surgery and reconstruction Right intercostal neuralgia, with excellent benefit from right-sided intercostal nerve blocks from ribs 6 through 9. we will plan on repeating this procedure in about 6 weeks. 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 The patient will continue using her Percocet from his primary care physician. I spent 3 minutes counseling him on the importance of smoking cessation as it relates to overall health and chronic pain. I also counseled him on the importance of weight loss. Follow-up: For above-mentioned procedure in 6 weeks Objective - Vital Signs Vital signs: Vital Signs Temp Pulse 63 06/09/19 13:59 Resp 16 06/09/19 13:59 BP 153/99 06/09/19 13:59 Pulse Ox 96 06/09/19 13:59 PQRS Measure Charge Sheet Measure #130: Documentation of Current Meds in Medical Chart: Patient's medications documented in chart Measure #226: Tobacco Use: Screen & Cessation Intervention: Pt screened for tobacco use AND intervention given Measure #111: Pneumonia Vaccination: Pneumococcal vaccine NOT administered or previously given Measure #47: Advance Care Plan: Advance care planning discussed & documented, pt chose/unable to give Measure #412: Opioid Treatment Agreement: No documentation of signed opioid treatment agreement Measure #317: Preventitive Care & Scrn High Bld Press & F/U: Pre-hypertensive or hypertensive BP documented, pt will f/u with PCP Measure #128: Body Mass Index (BMI) Screening & Follow-up: BMI documented ABOVE normal parameters - f/u documented Measure #131: Pain Assessment & Follow-up: Pain positive & plan documented, Follow-up scheduled Measure #431: Unhealthy Alcohol Use Preventative Care & Scrn: Patient not identified as an unhealthy alcohol user PQRS Narrative: Smoking Status Current every day smoker Blood Pressure 153/99 Pain Intensity [Right Chest] 3 Hx Alcohol Use (MH) Yes Home Medications: Ambulatory Orders Atorvastatin [Lipitor] 40 mg PO DAILY #30 tab 10/09/16 Metoprolol Tartrate [Lopressor] 25 mg PO BID 01/24/17 Clopidogrel [Plavix] 75 mg PO DAILY 07/25/18 oxyCODONE HCL/ACETAMINOPHEN [Percocet 5-325 mg] 1 tab PO Q6HR PRN 07/25/18 Lisinopril 40 mg PO DAILY 11/30/18 Aspirin 325 mg PO DAILY 03/24/19 Multivit-Min/Folic/Vit K/Lycop [Men's Multivitamin Tablet] 1 each PO DAILY 03/24/19 Controlled Substance Measures - Controlled Substance Measures Is patient prescribed a controlled substance at discharge?: No
== END | disposition home or self-care (01) ==
LOC: PNWHC3 13:16
PROVIDERS: ATTEND Anesthesiology
DX: R07.89 Other chest pain (principal); G58.0 Intercostal neuropathy; F17.200 Nicotine dependence, unspecified, uncomplicated; Z95.4 Presence of other heart-valve replacement; Z98.890 Other specified postprocedural states; Z79.82 Long term (current) use of aspirin; Z79.899 Other long term (current) drug therapy
CPT/HCPCS: 99211

== ENCOUNTER → 2019-07-15 | Outpatient (CLI) | payer MEDICARE ==
--- NOTE | 2019-07-15 11:12 | BD ---
EXAMINATION TYPE: Axial Bone Density DATE OF EXAM: 07/15/2019 COMPARISON: NONE CLINICAL HISTORY: Disorder of bone. Height: 71 inches Weight: 271 FRAX RISK QUESTIONS: Alcohol (3 or more units per day): no Family History (Parent hip fracture): no Glucocorticoids (More than 3mos): no (Ex: prednisone, prednisolone, methylprednisolone, dexamethasone, and hydrocortisone). History of Fracture in Adulthood: yes Secondary Osteoporosis: 1. Type 1 Diabetes: no 2. Hyperthyroidism: no 3. Menopause before 45: n/a 4. Malnutrition: no 5. Chronic liver disease: no Rheumatoid Arthritis: no Current Tobacco Use: yes RISK FACTORS HISTORY OF: Surgery to Spine: yes, cervical spine When: about 5 years ago Family History of Osteoporosis: unsure Active: limited due to aortic surgery Diet low in dairy products/other sources of calcium: at last one serving a day Postmenopausal woman: n/a Take estrogen and/or progesterone medications: n/a Lost more than 2 inches in height since high school: no Frequent falls: no Poor Health: yes Hyperparathyroidism: no Adrenal Insufficiency: no MEDICATIONS: Prednisone or other steroids: no Thyroid Medications: no Osteoporosis Medications: no Additional Medications: cholesterol med , blood pressure med, Plavix, Metoprolol Additional History: 2017 aortic valve replacement...sternum never healed & was removed reason for exam: disorder of bone EXAM MEASUREMENTS: Bone mineral densitometry was performed using the [employer] System. Bone mineral density as measured about the Lumbar spine is: ----- L1-L4(G/cm2): 1.045 T Score Values are as follows: ----- L2: -1.6 ----- L3: -1.4 ----- L4: -0.5 ----- L1-L4: -1.1 Bone mineral density BASELINE Bone mineral density about the R hip (g/cm2): 0.991 Bone mineral density about the L hip (g/cm2): 0.944 T Score values are as follows: -----R Neck: -0.3 -----L Neck: -0.7 -----R Total: 0.2 -----L Total: 0.2 Bone mineral density BASELINE IMPRESSION: Z score values below -2.0 at 2 consecutive levels in the low back. Z-score: compared by SD to an age, sex, and ethnicity population (used for premenopausal women, men < 50 years, and children instead of T-score WHO criteria 4) <-2.0: below expected range/low bone density for age, and a cause should be sought NOTE: T-SCORE=SD OF THE YOUNG ADULT MEAN.
== END | disposition home or self-care (01) ==
LOC: RADBDWWP 07:12
PROVIDERS: ATTEND Family Medicine
DX: M89.9 Disorder of bone, unspecified (principal)
CPT/HCPCS: 77080

== ENCOUNTER 2019-07-22 06:56 | Day surgery (SDC) | payer MEDICARE ==
[2019-07-18 10:20] VITALS: BMI 37.6
[~2019-07-22 06:56] MED LIST changes: +BUPIVACAINE (PF) 0.5% 30 ML VIAL ONE; +MIDAZOLAM 2 MG/2 ML VIAL ONE; +TRIAMCINOLONE ACETONIDE 40 MG/ML 1 ML VIAL ONE; +fentaNYL (PF) 50 MCG/ML 2 ML AMP ONE
[2019-07-22 07:16] VITALS: TEMP 96.7
[2019-07-22] MEDS ORDERED: LACTATED RINGERS 1,000 ML IV ONE (07:20)
[2019-07-22] MEDS ORDERED: LIDOCAINE 1% 20 ML VIAL (10MG/ML) FOR IV START INTRADERMA ONE (07:21)
--- NOTE | 2019-07-22 08:38 | P.PCN ---
Date of Procedure: 07/22/19 Procedure(s) Performed: Intercostal Nerve Block Attending: Ailin Anderson M.D. PREOPERATIVE DIAGNOSIS: Intercostal neuralgia on the right side POSTOPERATIVE DIAGNOSIS: Same OPERATION PERFORMED: Right Sided Intercostal Nerve Block at the sixth, seventh, eighth, ninth ribs IV SEDATION with Versed and fentanyl, sedation time 19 minutes Fluoroscopy was used for the procedure and images saved to patient's chart. Ultrasound was also used for the procedure and images saved to the patient's chart. PROCEDURE AND FINDINGS: The patient was greeted in the pre procedure holding area. The risk, benefits and alternatives to the procedure were again reviewed with the patient and written informed consent was placed in the chart. Prior to the procedure a time out was completed, verifying correct patient, procedure, site, positioning, and implants and/or special equipment. An IV line was placed. A 500 mL bag of NS was connected to the patient. The patient was taken to the procedure room and positioned prone on the fluoroscopy table. Routine monitors were applied including EKG leads, blood pressure cuff, and pulse oximetry. The area of subcutaneous tissue on the right side(s) overlying the T6, T7, T8, T9 levels was identified. The patient was prepped and draped in the usual sterile fashion. At this point, a radiopaque pointer was used to count all ribs corresponding to this level. Coming down from the 1st thoracic level the proper ribs were identified. The vertebral bodies were marked, and a point in the inferior margin of the corresponding ribs were identified and marked approximately 6 centimeters lateral to midline. At this point, the ultrasound probe was prepped into the field sterilely. Then, a 21-gauge Pajunk 100 mm needle was used and Os was contacted in each case and the tissue infiltration was done under live ultrasound guidance. The tip of the needle was walked off the inferior aspect of the rib and at that point, 10 milligrams of Kenalog was injected with 0.75 cc of ropivacaine 0.5% at each level. A total of 40 mg of Kenalog was used for the procedure. The needle was flushed and removed. The patient tolerated the procedure well. Patient was hemodynamically stable throughout and had no difficulty with respiration or coughing or shortness of breath. The patient was taken to the recovery room where they were monitored for a brief period of time. Patient tolerated the procedure well and were discharged home in stable condition with post procedural instructions. The patient had no questions prior to discharge. Patient was instructed to go to the emergency room should they develop sudden shortness of breath, coughing or difficulty with breathing. The patient will follow up in clinic in 4 weeks. Complications: none
--- NOTE | 2019-07-22 08:39 | FL ---
EXAMINATION TYPE: FL guided pain mgmt statistic DATE OF EXAM: 07/22/2019 CLINICAL HISTORY: Rib pain. TECHNIQUE: Fluoroscopy. COMPARISON: None. FINDINGS: Fluoroscopic guidance was provided during pain relief procedure performed by Dr. Bentley . A total of 1 seconds of fluoroscopic time was utilized during the procedure and 1 spot images was acquired. Images acquired shows needle localization adjacent to a rib. IMPRESSION: As Above.
[2019-07-22] MEDS ORDERED: IV FLUID CONTINUATION 600 ML IV ONE (08:41)
[2019-07-22 08:51] VITALS: RESP 20
[2019-07-22 09:05] VITALS: BP 104/72; PULSE 68
[2019-07-22] MEDS ORDERED: KETOROLAC 30 MG/ML 1 ML VIAL IVP ONE (09:05)
== END 2019-07-22 09:43 | disposition home or self-care (01) ==
LOC: ORPAIN 06:56
PROVIDERS: ATTEND Anesthesiology
DX: G58.0 Intercostal neuropathy (principal)
CPT/HCPCS: 64420; 64421 ×3; J2250; J3301; J3010; J1885; 99152

== ENCOUNTER 2019-07-23 08:59 | Emergency (ER) | payer MEDICARE ==
[2019-07-23 09:13] VITALS: TEMP 98
[2019-07-23] MEDS ORDERED: KETOROLAC 30 MG/ML 1 ML VIAL IVP STA ×2 (09:48→13:06)
[2019-07-23] MEDS ORDERED: SODIUM CHLORIDE 0.9% 500 ML 500 ML IV STA (09:49)
[2019-07-23] MEDS ORDERED: SODIUM CHLORIDE 0.9% 1,000 ML IV STA (09:49)
[2019-07-23 10:03] LABS: Basophils # (A) 0.3 k/uL (0-0.2); Basophils % (A) 2 %; Eosinophils # (A) 0.1 k/uL (0-0.7); Eosinophils % (A) 1 %; HCT 45.3 % (39.0-53.0); Lymphocytes # (A) 2.1 k/uL (1.0-4.8); Lymphocytes % (A) 14 %; MCH 29.3 pg (25.0-35.0); MCV 88.8 fL (80.0-100.0); Monocytes # (A) 0.9 k/uL (0-1.0); Monocytes % (A) 6 %; Neutrophils # (A) 10.8 k/uL (1.3-7.7); Neutrophils % (A) 75 %; Platelet Count 220 k/uL (150-450); RDW 13.7 % (11.5-15.5); WBC 14.4 k/uL (3.8-10.6)
[2019-07-23 10:16] LABS: ALT 43 U/L (4-49); AST 28 U/L (17-59); African American GFR (CKD) >90 (>60 ml/min/1.73 sqM); Albumin 4.6 g/dL (3.5-5.0); Alkaline Phosphatase 114 U/L (38-126); Anion Gap 10 mmol/L; Blood Urea Nitrogen 15 mg/dL (9-20); Calcium 9.8 mg/dL (8.4-10.2); Carbon Dioxide 24 mmol/L (22-30); Chloride 103 mmol/L (98-107); Creatine Kinase 113 U/L (55-170); Glucose 325 mg/dL (74-99); Magnesium 1.8 mg/dL (1.6-2.3); Non-African American GFR(CKD) >90 (>60 ml/min/1.73 sqM); Potassium 4.8 mmol/L (3.5-5.1); Sodium 137 mmol/L (137-145); Total Bilirubin 0.4 mg/dL (0.2-1.3); Total Protein 7.4 g/dL (6.3-8.2)
--- NOTE | 2019-07-23 10:26 | XR ---
EXAMINATION TYPE: XR chest 2V DATE OF EXAM: 07/23/2019 COMPARISON: 05/12/2019 HISTORY: Chest pain TECHNIQUE: Frontal and lateral views of the chest are obtained. FINDINGS: Persistent pleural parenchymal opacity in the right mid to lower lung. Surgical clips over lie the right infrahilar region. Cardiomediastinal silhouette is stable. Postsurgical change of the c ervical spine. There is a suspected subtle right apical pneumothorax. No new focal consolidation or p leural effusion. IMPRESSION: 1. Suspected right apical pneumothorax. Inspiratory and expiratory chest x-rays could be performed or CT. Finding was discussed with the ordering ER physician Dr. German at 10:23 AM on 07/23/[address] Layla fontenot. 2. Persistent pleural parenchymal opacity as seen on the prior. This could also be further evaluated with chest CT.
[2019-07-23 10:33] LABS: INR 0.9 (<1.2)
[2019-07-23 10:34] LABS: Partial Thromboplastin Time 23.3 sec (22.0-30.0); Prothrombin Time 9.8 sec (9.0-12.0)
--- NOTE | 2019-07-23 11:08 | CT ---
EXAMINATION TYPE: CT chest wo con DATE OF EXAM: 07/23/2019 COMPARISON: 05/24/2018 in radiograph 07/23/2019 HISTORY: 48-year-old male Possible chest mass, possible pneumothorax. TECHNIQUE: Contiguous axial scanning of the chest without IV contrast. Coronal and sagittal reconstru ctions performed. CT DLP: 975 mGycm Automated exposure control for dose reduction was used. FINDINGS: Heart normal size without pericardial effusion. Prosthetic aortic valve. Borderline ectatic ascending aorta 3.6 cm. Conventional arch vessel branching anatomy. Prominent but nonenlarged lower right paratracheal lymph node at 9 mm. Stable soft tissue nodularity and calcification anterior mediastinum compared back to 05/24/2018 suggesting some type of chronic po stinflammatory etiology. 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 There seems to have been resection of the right lateral half of the inferior sternal body. Overlying presternal soft tissue thickening probably relates to the pectoralis flap re construction. Suspect a ventral fatty hernia at the thoracoabdominal junction measuring 9.7 cm craniocaudal by 11.0 cm wide involving upper abdominal omentum extending up to the level of the lower chest, refer to axi al image 41 and sagittal image 69. There is a small right-sided pneumothorax estimated at 5%. Focal opacity in a large portion of the ri ght lobe with associated crowded bronchograms. No other consolidation or pleural effusion. Visualized upper abdomen shows fatty infiltration of the liver. Bones: Multiple old right-sided rib fracture deformities with varying degrees of chronic nonunion, h owever, noted to be new from 05/24/2018. IMPRESSION: 1. EXAM POSITIVE FOR A SMALL, APPROXIMATELY 5% RIGHT-SIDED PNEUMOTHORAX. FOCAL RIGHT MIDDLE LOBE OPAC ITY PROBABLY REPRESENTS ATELECTASIS. CORRELATE WITH PATIENT'S SYMPTOMS TO EXCLUDE PNEUMONIA. 2. SURGICAL CHANGE ALONG THE ANTERIOR CHEST WALL. THERE SEEMS TO BE PARTIAL RESECTION OF THE INFERIOR RIGHT HALF OF THE STERNAL BODY. THE UPPER AND MID STERNAL BODY HAS HEALED. 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 ADDITIONAL SURGICAL CHANGES LIKELY REFLECTING PECTORALIS FLAP IN THE PRESTERNAL REG ION. 3. FOCAL PROTRUSION OF THE UPPER OMENTAL FAT MEASURING 11.0 X 9.7 CM ALONG THE VENTRAL MIDLINE THORAC OABDOMINAL JUNCTION. FINDINGS SUGGEST A NEW VENTRAL WALL HERNIA. 4. MULTIPLE RIGHT-SIDED RIB FRACTURE DEFORMITIES, NEW FROM 05/24/2018 APPEAR CHRONIC WITH VARYING DEG MARTHA OF NONUNION OR INCOMPLETE UNION. 5. HEPATIC STEATOSIS.
--- NOTE | 2019-07-23 11:44 | ED ---
Chest Pain HPI - General Chief Complaint: Chest Pain Stated Complaint: Chest pain-post op Time Seen by Provider: 07/23/19 09:21 Source: patient, RN notes reviewed Mode of arrival: ambulatory Limitations: no limitations - History of Present Illness Initial Comments: This is a 48-year-old male with a history of aortic valve replacement in the past as well as multiple chest wall surgeries who states he get an epidural shot yesterday and after the shot he started developing right-sided midsternal area chest pain. States was fairly severe he did get better with Toradol but recurred during the evening and night and is now back. He denies any fevers chills nausea vomiting sweats cough or phlegm production. He states he has had a hernia leg masses he larger in his chest wall that his doctors are aware this. No other current modifying factors he does point to the right mid chest region pain is sharp in nature he states it was 8/10 severity MD Complaint: chest pain - Related Data Home Medications Medication Instructions Recorded Confirmed Metoprolol Tartrate [Lopressor] 25 mg PO BID 01/24/17 07/22/19 Clopidogrel [Plavix] 75 mg PO DAILY 07/25/18 07/22/19 oxyCODONE HCL/ACETAMINOPHEN 1 tab PO Q6HR PRN 07/25/18 07/22/19 [Percocet 5-325 mg] Lisinopril 40 mg PO DAILY 11/30/18 07/22/19 Aspirin EC [Ecotrin Low Dose] 81 mg PO DAILY 07/23/19 07/23/19 Previous Rx's Medication Instructions Recorded Atorvastatin [Lipitor] 40 mg PO DAILY #30 tab 10/09/16 Ketorolac [Toradol] 10 mg PO Q6HR #20 tab 07/23/19 Allergies Allergy/AdvReac Type Severity Reaction Status Date / Time morphine AdvReac aggitation Verified 07/23/19 12:41 Review of Systems ROS Statement: Those systems with pertinent positive or pertinent negative responses have been documented in the HPI. ROS Other: All systems not noted in ROS Statement are negative. EKG Findings - EKG Results: EKG: interpreted by JACQUE, sinus rhythm (Sinus rhythm a 69. Interval 144 QRS duration 92 QT since QTC 34/[address]-T wave configuration) Past Medical History Past Medical History: GERD/Reflux, Hyperlipidemia, Hypertension, Musculoskeletal Disorder, Skin Disorder Additional Past Medical History / Comment(s): Aortic valve surgery 10/13/16 with post op wound problems and subsequent surgeries-see surgical history, DDD in neck and low back, vertigo, head injury as a child, eczema., hx of migraines since a child-improved since heart surgery., Some days he will get nauseous and gag when having bowel movement., Fx rib in November 2018 while stretching in the shower., States low energy and hurts everywhere. History of Any Multi-Drug Resistant Organisms: None Reported Past Surgical History: Adenoidectomy, Hernia Repair, Tonsillectomy Additional Past Surgical History / Comment(s): KHANG, aortic valve replaced 10-13-16, revision sternal wound-wires removed and plate system placed which have all since been removed, 06/19/18 sternoplasty with pectoral muscle, cervical freire rgery, umbilical hernia repair, EGD, colonoscopy, benign tumor removed below R breast. PAIN CLINIC PROCEDURE Past Anesthesia/Blood Transfusion Reactions: No Reported Reaction, Motion Sickness Additional Past Anesthesia/Blood Transfusion Reaction / Comment(s): no hx blood transfusion. Past Psychological History: Anxiety, Depression Smoking Status: Current every day smoker - Past Family History Mother Family Medical History: No Reported History Additional Family Medical History / Comment(s): Mother had bariatric surgery then intestinal problems after. She has vertigo. Father Additional Family Medical History / Comment(s): Pt did not know his father but knows he in a MVA. General Exam - General Exam Comments Initial Comments: This is a well-developed well-nourished awake alert oriented 3 male Limitations: no limitations General appearance: alert, anxious Head exam: Present: atraumatic, normocephalic, normal inspection Eye exam: Present: normal appearance, PERRL, EOMI. Absent: scleral icterus, conjunctival injection, periorbital swelling ENT exam: Present: normal exam, mucous membranes moist Neck exam: Present: normal inspection, full ROM, other (No stridor JVD or bruits). Absent: tenderness, meningismus, lymphadenopathy Respiratory exam: Present: normal lung sounds bilaterally, chest wall tenderness (Is palpation of the anterior right chest wall there is the hernia like mass with no pulsatile activity.). Absent: respiratory distress, wheezes, rales, rhonchi, stridor Cardiovascular Exam: Present: regular rate, normal rhythm, normal heart sounds. Absent: systolic murmur, diastolic murmur, rubs, gallop, clicks GI/Abdominal exam: Present: soft, normal bowel sounds. Absent: distended, tenderness, guarding, rebound, rigid Extremities exam: Present: normal inspection, full ROM, normal capillary refill. Absent: tenderness, pedal edema, joint swelling, calf tenderness Back exam: Present: normal inspection Neurological exam: Present: alert, oriented X3, CN II-XII intact Psychiatric exam: Present: normal affect, normal mood Skin exam: Present: warm, dry, intact, normal color. Absent: rash Course Vital Signs 07/23/19 07/23/19 07/23/19 09:10 09:34 09:49 Temperature 98 F Pulse Rate 88 86 Pulse Rate [ 88 Catalyst Concentration Operator ] Respiratory 16 18 Rate Blood Pressure 157/101 O2 Sat by Pulse 97 94 L Oximetry 07/23/19 07/23/19 07/23/19 10:00 10:30 11:00 Temperature Pulse Rate 87 86 88 Pulse Rate [ Catalyst Concentration Operator ] Respiratory 18 18 18 Rate Blood Pressure 176/94 153/89 O2 Sat by Pulse 96 94 L 98 Oximetry 07/23/19 11:30 Temperature Pulse Rate 85 Pulse Rate [ Catalyst Concentration Operator ] Respiratory 18 Rate Blood Pressure 145/80 O2 Sat by Pulse 96 Oximetry Chest Pain MDM - MDM I did review the imaging and report and did discuss the findings with Dr. Wilcox who did call me. CAT scan does show evidence of a small 5% pneumothorax. He did have a long discussion with patient regarding findings he will be discharged and follow-up with his doctor outpatient he does relate that he has similar episode last year with same results of a small pneumo. He will return if any issues. Disposition Clinical Impression: Chest wall syndrome, Pneumothorax on right Disposition: HOME SELF-CARE Condition: Good Instructions (If sedation given, give patient instructions): Chest Wall Pain (ED), Spontaneous Pneumothorax (ED) Additional Instructions: Prescription sent to your preferred pharmacy Prescriptions: Ketorolac [Toradol] 10 mg PO Q6HR #20 tab Is patient prescribed a controlled substance at d/c from ED?: No Referrals: Matthew Katz MD [Primary Care Provider] - 1-2 days
[2019-07-23 11:45] VITALS: RESP 18
[2019-07-23 13:32] VITALS: BP 147/79; PULSE 83
== END 2019-07-23 13:31 | disposition home or self-care (01) ==
LOC: EC 08:59
DX: J93.9 Pneumothorax, unspecified (principal); F17.200 Nicotine dependence, unspecified, uncomplicated; I10 Essential (primary) hypertension; Z79.02 Long term (current) use of antithrombotics/antiplatelets; Z79.82 Long term (current) use of aspirin; Z79.899 Other long term (current) drug therapy; Z88.5 Allergy status to narcotic agent; Z95.2 Presence of prosthetic heart valve
CPT/HCPCS: 36415; 93005; 83880; 80053; 82550; 83735; 84484; 85025; 85610; 85730; 71046; 71250; 99285; 96374; 96376; 96361 ×3; J1885

== ENCOUNTER → 2019-08-19 | Outpatient (CLI) | payer MEDICARE ==
[2019-08-19 12:17] VITALS: BP 135/93; PULSE 74; RESP 20
--- NOTE | 2019-08-19 12:58 | P.PN ---
Subjective Progress Note Date: 08/19/19 This is a 48-year-old gentleman with history of aortic valve replacement with fluoroscopic and by sternal infection and multiple surgeries on the chest with muscle flap. The patient had 3 intercostal nerve blocks which helped his pain significantly however after the last one he had some and anterior chest wall pain due to his position on the table for which he had to go to the ER next day of the procedure. The ER and was found to have 5% pneumothorax around the right lung. The patient was stable with no need for chest tube and he was sent home from the ER. The patient has a history of one spontaneous pneumothorax previously and we do not know exactly if this pneumothorax is due to the procedure we did in the patient or happened spontaneously. The patient is still takes Percocet 5 mg 4 times a day if needed for his pain. And he gets this medicine from his primary care physician. The patient states that his pain is tolerable at this point and much better than his pain before the procedures. The patient quit smoking about 3 days ago. Patient denies new-onset weakness, bowel/bladder incontinence, or any other signs or symptoms of cauda equina syndrome. There are no signs of acute intoxication, and no indications of medication diversion or overuse. In addition to above, 13-point review of systems is also negative for chest pain, shortness of breath, changes in vision, changes in hearing, new onset weakness, abdominal pain, diarrhea, extreme fatigue, malaise, fever, skin changes, homicidal or suicidal ideation, or bowel or bladder incontinence. 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 Explanation: Opioid and psychological risk scores were reviewed. Diagnoses, prognoses, and multiple treatment options including but not limited to physical therapy, interventional therapies, adjuvant medical therapies, narcotic medication therapies, and surgery were discussed with the patient and all questions were answered to the patient's satisfaction. 2. Opioid agreement: The patient gets his Percocet prescription from his primary care physician 3. Counseling: The patient was counseled extensively on SMOKING CESSATION, BODY MASS INDEX, EXERCISE. Specifically, the patient was instructed regarding the importance of smoking cessation, obesity, and exercise in the context of both chronic pain and overall health. 4. Procedures: None at this point however the pain gets out of control again then we need to repeat these procedures 5. Consultations: None 6. Investigations: None 7. Medications: None 8. Disposition: Return to clinic on an as-needed basis 9. Maps were reviewed and were appropriate. PQRS measures: 1-Patient's medications are documented in the chart. 2-Tobacco use is negative(the patient quit smoking about 3 days ago only) 3-Patient has not had a pneumococcal vaccine. 4-Advanced care planning discussed, patient unable to give 5-Opioid contract not signed with the patient. 6-Pain positive, follow-up visit or procedure scheduled 7-Patient's blood pressure measured and documented slightly above normal limits. The patient will follow up with his primary care physician. 8-Patient's weight was measured, and body mass index ABOVE the normal limits, and counseling was done. Patient instructed to follow up with PCP. 9-Patient WAS NOT identified as an unhealthy alcohol user. Objective - Vital Signs Vital signs: Vital Signs Temp Pulse 74 08/19/19 12:08 Resp 20 08/19/19 12:08 BP 135/93 08/19/19 12:08 Pulse Ox 95 08/19/19 12:08
== END | disposition home or self-care (01) ==
LOC: PNWHC3 11:52
PROVIDERS: ATTEND Anesthesiology
DX: M79.2 Neuralgia and neuritis, unspecified (principal); Z87.891 Personal history of nicotine dependence; Z95.2 Presence of prosthetic heart valve
CPT/HCPCS: 99211

== ENCOUNTER → 2020-12-10 | Outpatient (CLI) | payer MEDICARE ==
[~2020-12-10] MED LIST changes: -BUPIVACAINE (PF) 0.5% 30 ML VIAL ONE; +DOBUTamine DRIP for NUC MED 500 MG in DEXTROSE/WATER 1 250ML.BAG IV PRN; -LACTATED RINGERS 1,000 ML IV SCH; -MIDAZOLAM 2 MG/2 ML VIAL ONE; -TRIAMCINOLONE ACETONIDE 40 MG/ML 1 ML VIAL ONE; -fentaNYL (PF) 50 MCG/ML 2 ML AMP ONE
--- NOTE | 2020-12-10 10:33 | ECHOF ---
Referral Reason:[id number] Preop cardiac exam, Abnormal EKG R94.31 MEASUREMENTS -------- HEIGHT: 180.3 cm WEIGHT: 122.5 kg BP: 105/66 RVIDd: 5.2 cm (< 3.3) IVSd: 1.4 cm (0.6 - 1.1) LVIDd: 5.4 cm (3.9 - 5.3) LVPWd: 1.3 cm (0.6 - 1.1) IVSs: 2.1 cm LVIDs: 3.4 cm LVPWs: 1.7 cm LAESV Index (A-L): 14.12 ml/m Ao Diam: 3.2 cm (2.0 - 3.7) AV Cusp: 1.6 cm (1.5 - 2.6) LA Diam: 5.3 cm (2.7 - 3.8) MV EXCURSION: 15.495 mm (> 18.000) MV EF SLOPE: 81 mm/s (70 - 150) EPSS: 0.6 cm MV E Jacinto: 0.95 m/s MV DecT: 334 ms MV A Jacinto: 1.04 m/s MV E/A Ratio: 0.91 AV maxP.04 mmHg AV meanP.28 mmHg RAP: 5.00 mmHg RVSP: 32.74 mmHg FINDINGS -------- Sinus rhythm. This was a technically difficult study with suboptimal views. The left ventricular size is normal. There is moderate concentric left ventricular hypertrophy. O verall left ventricular systolic function is normal with, an EF between 55 - 60 %. Septal wall divine on is delayed and consistent with prior cardiac surgery. The right ventricle is moderate to severely enlarged. Normal LA size by volume 22+/-6 ml/m2. The right atrium was not well visualized. 5.0mg of Lumason was utilized for enhancement of images Interatrial and interventricular septum intact. The aortic valve was not well visualized. Peak/mean gradient across the Aortic Valve is 44.04mmHg / 21.28mmHg. Normally functioning bioprosthetic valve. Mild mitral annular calcification present. No mitral regurgitation. The tricuspid valve appears structurally normal. Mild tricuspid regurgitation present. Right vent ricular systolic pressure is normal at < 35 mmHg. The right ventricular systolic pressure, as measu red by Doppler, is 32.74mmHg. The pulmonic valve was not well visualized. The aortic root size is normal. IVC Not well visulized. There is no pericardial effusion. CONCLUSIONS -------- 1. This was a technically difficult study with suboptimal views. 2. There is moderate concentric left ventricular hypertrophy. 3. Overall left ventricular systolic function is normal with, an EF between 55 - 60 %. 4. The right ventricle is moderate to severely enlarged. 5. The aortic valve was not well visualized. 6. Normally functioning bioprosthetic valve. 7. Mild mitral annular calcification present. 8. Mild tricuspid regurgitation present. DIRECTOR SYSTEMS: Carissa Sanabria RDCS
--- NOTE | 2020-12-10 15:59 | ECHOS ---
STRESS ECHOCARDIOGRAM LUMASON: INDICATIONS: Pre op MEDICATIONS: BASELINE HEART RATE: 58 BASELINE BLOOD PRESSURE: 104/66 MAXIMUM HEART RATE: 147 MAXIMUM BLOOD PRESSURE: 172/94 85% MPHR: 145 100% MPHR: 170 METS: MAXIMUM STAGE REACHED: IV TOTAL EXERCISE TIME: 11:07 PROCEDURE: Stress echo CLINICAL INFORMATION: Baseline rhythm is sinus mechanism, rate 58, normal axis and intervals. Nonspecific ST- T wave changes. Baseline blood pressure 104/66 mmHg. Patient exercised on Edwin protocol for 11 minute 7 seconds achieving peak rate 147 beats per minute, peak blood pressure 172/94 mmHg. Test was terminated secondary to fatigue. There was no chest pain. Electrocardiograph monitoring revealed a [address]-segment depression inferolateral leads that resolved rapidly in recovery. Baseline echocardiogram revealed normal wall thickening and motion. At peak exercise, there was normal wall motion augmentation with no hypokinesis or dyskinesis. IMPRESSION: 1. Good exercise tolerance with borderline positive electrocardiograph stress testing. 2. Normal stress echocardiogram with no evidence of stress-induced ischemia. MMODL / IJN: [id number] /
== END | disposition home or self-care (01) ==
LOC: RADNMMAIN 08:56
PROVIDERS: ATTEND Internal Medicine Interventional Cardiology
DX: Z01.810 Encounter for preprocedural cardiovascular examination (principal); I07.1 Rheumatic tricuspid insufficiency
CPT/HCPCS: C8929; C8930; Q9950; 93306; 93351